=== PATIENT | male | born 1950 | race Caucasian/White ===

== ENCOUNTER → 2017-05-02 11:29 | Outpatient (CLI) | payer MEDICARE, OTHER, SELFPAY | PROVIDERS: Family Provider Family Medicine; PCP Family Medicine; Visit Provider Urology | DX: C61 Malignant neoplasm of prostate (principal) | CPT/HCPCS: 36415; 84153 ==

== ENCOUNTER → 2017-05-10 06:32 | Outpatient (CLI) | payer MEDICARE, OTHER, SELFPAY ==
--- NOTE | 2017-05-10 06:46 | CT_ITS ---
STUDY: CT ABDOMEN AND PELVIS WITH AND WITHOUT CONTRAST REASON FOR EXAM: Male, 66 years old. Prior partial right nephrectomy. Questionable left renal abnormality. History of prostate cancer. RADIATION DOSAGE (If Supplied By Facility): CTDIvol = ( 31.21 ) mGy, DLP = ( 4161.11 ) mGycm TECHNIQUE: Transaxial images were obtained from the dome of the diaphragm to the symphysis pubis without oral contrast. 100 ml of Isovue 300 contrast was administered. Sagittal and coronal images were reconstructed. Individualized dose optimization techniques were used for this CT. COMPARISON: Comparison is made with prior examination dated July 07, 2016. FINDINGS: Mild increased markings at the lung bases suggestive of bibasilar scarring. Calcified granuloma in the right lower lobe. The visualized portions of the heart are within normal limits. There are several tiny cysts scattered throughout the liver. These are unchanged. There are surgical clips in the gallbladder fossa consistent with a prior cholecystectomy. Normal spleen. A small splenule is once again seen along the inferior medial portion of the spleen. Normal pancreas. Normal bilateral adrenal glands. 1 cm cyst in the mid posterior aspect of the right kidney. A punctate calcification is seen in the mid lower pole calyx of the left kidney. Focal cortical deformity in the midportion of the left kidney suggestive of cortical scarring. There is evidence of a 1.9 cm hypodensity most likely presenting a cyst in the lower midportion of the left kidney. Normal visualized stomach. Normal small intestine. Normal colon. The appendix is visualized and appears normal. Normal abdominal aorta. Normal inferior vena cava. There is borderline retroperitoneal lymphadenopathy with enlarged nodes no greater than 10mm in the short axis diameter. Contracted urinary bladder. There is enlargement of the prostate gland. The prostate measures 5.2 cm x 5.2 cm. Central calcifications are seen. This causes indentation at the bladder base. There is a small umbilical hernia containing fat. Small bilateral inguinal hernias containing fat. Small bilateral inguinal lymph nodes. There are diffuse degenerative changes of the visualized lumbar spine. CT/CT Abd/Pelvis W/WO Contrast IMPRESSION: Stable small hepatic cysts. Stable bilateral renal cysts. Cortical scarring in the left kidney. Electronically Signed: Germán Coyne MD at 10:22 EDT Tel [phone], Service support ,
[2017-05-10 07:01] LABS: EGFR FINGERSTICK > 60.0000 mL/min (>60)
== END ==
PROVIDERS: Family Provider Family Medicine; PCP Family Medicine; Visit Provider Urology
DX: C64.2 Malignant neoplasm of left kidney, except renal pelvis (principal); K76.89 Other specified diseases of liver; N28.89 Other specified disorders of kidney and ureter; Z85.46 Personal history of malignant neoplasm of prostate
CPT/HCPCS: 74178; Q9967

== ENCOUNTER → 2017-05-16 09:00 | Outpatient (CLI) | payer MEDICARE, OTHER, SELFPAY ==
--- NOTE | 2017-05-16 09:07 | RAD_ITS ---
STUDY: X-RAY CHEST REASON FOR EXAM: Male, 66 years old. History of renal cancer. TECHNIQUE: Frontal and lateral views of the chest. COMPARISON: 12/31/2015. FINDINGS: The lungs are clear and expanded. There is no demonstrated pleural abnormality. Normal size heart. Normal mediastinum and nirav. Normal visualized pulmonary arteries. Normal visualized aortic arch and descending thoracic aorta. Normal visualized thoracic spine. Normal visualized ribs, clavicles, and shoulders. There is no demonstrated abnormality of the visualized soft tissue structures of the upper abdomen. RAD/Chest PA and Lateral IMPRESSION: Normal x-ray examination of the chest. Electronically Signed: Srinivasa Smith MD at 8:23 EDT , Service support ,
== END ==
PROVIDERS: Family Provider Family Medicine; PCP Family Medicine; Visit Provider Urology
DX: Z85.528 Personal history of other malignant neoplasm of kidney (principal)
CPT/HCPCS: 71046

== ENCOUNTER → 2017-08-14 16:57 | Outpatient (CLI) | payer MEDICARE, OTHER, SELFPAY ==
--- NOTE | 2017-08-14 | IMM_PTH ---
PATIENT: DAPHNE BARR LOC: [facility] U#:[id number] AGE/SX: 74/M ROOM: RE08/14/[address]: Dr. Binh Schulz MD : 1950 BED: DIS: SPEC #: [id number] RECD: 08/16/17 12:37 STATUS: REECE REQ #: [id number] ARMIDA: 08/14/17 00:[address]: Binh Schulz DEPT: IMMUNOHISTOCHEMISTRY RECD BY: Char Limon ENTERED: 08/16/17 12:38 SP TYPE: IMMUNO OTHR DR: Dr. Wilbur Larkin MD Tissues: A - PROSTATE RIGHT D - PROSTATE LEFT F - PROSTATE LEFT Procedures: 34BE12 (add) P40 (add) 34BE12 (initial) PHYSICIAN & INSTITUTION [place] [id number] SPECIMEN INFORMATION: Tissue Source: A ? Right prostate apex, D ? Left prostate apex, F ? Left prostate base Clinical Info: Elevated PSA Specimen Number: [id number] A, D & F CPT code: 17663, 99888 x5 METHODOLOGY: Deparaffinized sections of prefer/formalin-fixed tissue or PAP/DQ stained slides are incubated with monoclonal/polyclonal antibodies/oligonucleotide probes. Localization is made via biotin free immunoperoxidase method. Appropriate controls are performed and reacted as expected. Results on target cell population are indicated in the following table: RESULTS: ANTIBODY / CLONE RESULT Block A P40 (BC28) negative 34BE12 (34BE12) negative Block D P40 (BC28) negative 34BE12 (34BE12) negative Block F P40 (BC28) positive 34BE12 (34BE12) positive These tests were developed and their performance characteristics determined by [facility]. They may not have been cleared or approved by the U.S. Food and Drug Administration. The FDA has determined that such clearance or approval is not necessary. INTERPRETATION: A. Right prostate, apex, core biopsy: A minute focus of adenocarcinoma. D. Left prostate, apex, core biopsy: A minute focus of adenocarcinoma. F. Left prostate, base, core biopsy: Negative for carcinoma. SJ:missy 08/17/17
--- NOTE | 2017-08-14 08:00 | PROSBIL_PTH ---
PATIENT: DAPHNE BARR LOC: [facility] U#:[id number] AGE/SX: 74/M ROOM: RE08/14/[address]: Dr. Binh Schulz MD : 1950 BED: DIS: SPEC #: [id number] RECD: 08/14/17 16:54 STATUS: REECE BRIAN #: [id number] ARMIDA: 08/14/17 08:[address]: Binh Schulz DEPT: SURGICAL PATHOLOGY RECD BY: Miguel Meraz ENTERED: 08/15/17 07:34 SP TYPE: PROST BX AMANDO DR: Dr. Wilbur Larkin MD Tissues: A - PROSTATE RIGHT B - PROSTATE RIGHT C - PROSTATE RIGHT D - PROSTATE LEFT E - PROSTATE LEFT F - PROSTATE LEFT Procedures: PROSTATE BX HEADER OPERATION: Prostate biopsy PRE-OP DIAGNOSIS: Elevated PSA TISSUE SUBMITTED: A - Right apex, B - Right mid, C - Right base, D - Left apex, E - Left mid, F - Left base MICROSCOPIC DIAGNOSIS A. Right prostate, apex, core biopsy: A minute focus of prostatic adenocarcinoma: Edgard grade: 3+3=6 Number of cores involved: 1 out of 2 Proportion of tissue involved: <5% Perineural invasion: Not identified. Greatest tumor length: <0.1 cm A lymphoid aggregate, favor benign. See comment. B. Right prostate, mid, core biopsy: Prostatic tissue, negative for malignancy. C. Right prostate, base, core biopsy: Negative for malignancy. D. Left prostate, apex, core biopsy: A minute focus of prostatic adenocarcinoma: Edgard grade: 3+3=6 Number of cores involved: 1 out of 2 Proportion of tissue involved: <5% Perineural invasion: Not identified. Greatest tumor length: <0.1 cm Focal atrophy. See comment. E. Left prostate, mid, core biopsy: Prostatic tissue, negative for malignancy. F. Left prostate, base, core biopsy: Prostatic tissue, negative for malignancy. See comment. SJ:missy 08/16/17 COMMENT A, D & F. Immunohistochemistry ([id number]) supports the above diagnosis. 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 MICROSCOPIC DESCRIPTION Slides are reviewed. GROSS DESCRIPTION A - Received is one container designated prostate, right apex. The specimen consists of two elongated fragments of light hernandez-white soft tissue each measuring 1.5 cm in length and 0.1 cm in diameter. The specimen is totally submitted in one cassette. B - Received is one container designated prostate, right mid. The specimen consists of two elongated fragments of light hernandez-white soft tissue each measuring 1.5 cm in length and 0.1 cm in diameter. The specimen is totally submitted in one cassette. C - Received is one container designated prostate, right base. The specimen consists of two elongated fragments of light hernandez-white soft tissue measuring 1.2 and 1.4 cm in length and 0.1 cm in diameter. The specimen is totally submitted in one cassette. D - Received is one container designated prostate, left apex. The specimen consists of two elongated fragments of light hernandez-white soft tissue measuring 1.5 and 2 cm in length and 0.1 cm in diameter. The specimen is totally submitted in one cassette. E - Received is one container designated prostate, left mid. The specimen consists of three elongated fragments of light hernandez-white soft tissue measuring 0.8 to 1.5 cm in length and 0.1 cm in diameter. A minute fragment of black stone is also noted in the container measuring <0.1 cm in greatest dimension. The specimen is totally submitted in one cassette. F - Received is one container designated prostate, left base. The specimen consists of two elongated fragments of light hernandez-white soft tissue each measuring 1.5 cm in length and 0.1 cm in diameter. The specimen is totally submitted in one cassette. / NORA:missy 08/15/17 TC:0 CPT: G0146 ADDENDUM ADDENDUM ADDENDUM ADDENDUM ADDENDUM ADDENDUM ADDENDUM ADDENDUM 03/23/2018 11:01 ADDENDUM 03/23/2018 11:01 ADDENDUM 03/23/2018 11:01 ADDENDUM 03/23/2018 11:01 ADDENDUM 03/23/2018 11:01 An order for Oncotype testing was received from Dr. Schulz. This necessitated case review, block and slide selection by pathologist at [facility]. Genomic Prostate Score = 37 Results of the complete Oncotype testing ([employer] report) are viewable in EMR under: Reports - Pathology - Lab Pathology Report, Scanned.
== END ==
PROVIDERS: Family Provider Family Medicine; PCP Family Medicine; Visit Provider Urology
DX: R97.20 Elevated prostate specific antigen [PSA] (principal)
CPT/HCPCS: 88305; 88341; 88342; G0416

== ENCOUNTER → 2018-02-26 12:29 | Outpatient (CLI) | payer MEDICARE, OTHER, SELFPAY | PROVIDERS: Family Provider Family Medicine; PCP Family Medicine; Referring Provider Urology; Visit Provider Urology | DX: C61 Malignant neoplasm of prostate (principal) | CPT/HCPCS: 36415; 84153 ==

== ENCOUNTER → 2018-03-13 14:16 | Outpatient (CLI) | payer MEDICARE, OTHER, SELFPAY ==
--- NOTE | 2018-03-13 14:26 | CT_ITS ---
HISTORY: RIGHT RENAL MASS. PREVIOUS PARTIAL NEPHRECTOMY, GB TECHNIQUE: Helically acquired images were obtained of the abdomen and pelvis following IV contrast. A radiation dose optimization technique was used for this scan. IV Contrast dosage and agent: 100 cc Isovue-300 administered intravenously. Oral contrast: None. COMPARISON: 05/10/17 and 12/31/15 CT abdomen and pelvis. FINDINGS: # of images incl. paperwork: [phone] LOWER CHEST: No acute findings. Calcified subcarinal and right hilar lymph nodes partially visible. LIVER: Unchanged small hepatic hypodensities most likely incidental cysts. No concerning interval change of the liver. GALLBLADDER AND BILIARY TREE: Status post cholecystectomy. No intra- or extrahepatic biliary ductal dilation. KIDNEYS AND URETERS: Indeterminate density hypodensity in the upper pole of the right kidney, 1.8 cm in greatest dimension, similar to previous. Other smaller bilateral renal cysts not significantly changed. Scarring upper pole cortex left kidney with no concerning interval change. ADRENAL GLANDS: Non-enlarged. SPLEEN: Normal size without focal cystic or solid mass. PANCREAS: No focal cystic or solid mass. BOWEL: No stomach or bowel distension. No focal inflammatory change observed. Normal appendix. LYMPH NODES: No enlarged mesenteric or retroperitoneal lymph nodes. PERITONEUM: No ascites or free air. No other fluid collection. VESSELS: Aorta is non-dilated. URINARY BLADDER: Incompletely distended, otherwise grossly unremarkable. REPRODUCTIVE ORGANS: Mild prostate enlargement similar to prior. ABDOMINAL WALL: Bilateral inguinal hernias contain fat. BONES: No lytic or blastic abnormality observed. CT/Abdomen/Pelvis WITH Contrast IMPRESSION: No concerning interval change. 1.8 cm indeterminant hypodense lesion upper pole cortex right kidney; complex cyst versus solid mass. Scarring upper pole left kidney. Prostate enlargement. Individualized dose optimization techniques were used for this CT. at 0343 Reported and signed by: Ariel Noble MD Electronically Signed: Ariel Noble, at 3:42 EST Tel , Service support ,
[2018-03-13 14:40] LABS: CREATININE FINGERSTICK 0.7 mg/dL (0.70-1.30); EGFR FINGERSTICK > 60.0000 mL/min (>60)
== END ==
PROVIDERS: Family Provider Family Medicine; PCP Family Medicine; Referring Provider Urology; Visit Provider Urology
DX: N28.89 Other specified disorders of kidney and ureter (principal)
CPT/HCPCS: 74177; Q9967

== ENCOUNTER → 2018-10-04 07:50 | Outpatient (CLI) | payer MEDICARE, OTHER, SELFPAY ==
[2018-10-04 09:32] LABS: PSA,Total- Diagnostic 6.64 ng/mL (0.0-4.0)
== END ==
PROVIDERS: Family Provider Family Medicine; PCP Family Medicine; Referring Provider Urology; Visit Provider Urology
DX: C61 Malignant neoplasm of prostate (principal)
CPT/HCPCS: 36415; 84153

== ENCOUNTER → 2019-04-04 07:37 | Outpatient (CLI) | payer MEDICARE, OTHER, SELFPAY ==
--- NOTE | 2019-04-04 07:39 | CT_ITS ---
STUDY: CT ABDOMEN AND PELVIS WITH CONTRAST REASON FOR EXAM: Male, 68 years old. Left kidney cancer follow up, partial left nephrectomy. Prior cholecystectomy, diabetes, hypertension. RADIATION DOSAGE (If Supplied By Facility): CTDIvol = ( 23.36 ) mGy, DLP = ( 1212.78 ) mGycm TECHNIQUE: Transaxial images were obtained from the dome of the diaphragm to the symphysis pubis without oral contrast. IV 100mL Isovue-300 was administered. Sagittal and coronal images were reconstructed. Individualized dose optimization techniques were used for this CT. COMPARISON: Comparison is made with prior examination dated March 13, 2018. FINDINGS: The visualized lung bases are unremarkable. The visualized portions of the heart are within normal limits. Stable 1.5 cm cyst in the right lobe of the liver. Fatty infiltration of the liver. There are surgical clips in the gallbladder fossa consistent with a prior cholecystectomy. Normal spleen. Normal pancreas. Normal bilateral adrenal glands. Since prior study, the hypodensity in the upper pole of the right kidney has decreased in size measuring 2.6 cm. Normal left kidney. Normal visualized stomach. Normal small intestine. Normal colon. The appendix is visualized and appears normal. Normal abdominal aorta. Normal inferior vena cava. There is borderline retroperitoneal lymphadenopathy with enlarged nodes no greater than 10mm in the short axis diameter. Normal urinary bladder. There is enlargement of the prostate gland. It measures 5.3 cm x 5.7 cm. Central calcifications are seen. Small bilateral inguinal hernias containing fat. There are mild degenerative changes of the visualized lumbar spine. CT/Abdomen/Pelvis WITH Contrast IMPRESSION: Increase in size of the upper density in the upper pole of the right kidney presently measuring 2.6 sinus. Stable hepatic cysts. Electronically Signed: Germán Coyne, at 14:20 EST , Service support ,
[2019-04-04 07:55] LABS: CREATININE FINGERSTICK 0.9 mg/dL (0.70-1.30)
[2019-04-04 10:04] LABS: PSA,Total- Diagnostic 7.35 ng/mL (0.0-4.0)
== END ==
PROVIDERS: PCP Family Medicine; Referring Provider Urology; Visit Provider Urology
DX: C64.2 Malignant neoplasm of left kidney, except renal pelvis (principal); C61 Malignant neoplasm of prostate
CPT/HCPCS: 36415; 74177; 84153; Q9967

== ENCOUNTER → 2019-10-10 09:52 | Outpatient (CLI) | payer MEDICARE, OTHER, SELFPAY ==
[2019-10-10 11:34] LABS: PSA,Total- Diagnostic 5.84 ng/mL (0.0-4.0)
== END ==
PROVIDERS: PCP Family Medicine; Visit Provider Urology
DX: N40.1 Benign prostatic hyperplasia with lower urinary tract symptoms (principal)
CPT/HCPCS: 36415; 84153

== ENCOUNTER 2020-01-06 12:16 | Emergency (ER) | payer MEDICARE, OTHER, SELFPAY ==
[2020-01-06 12:17] VITALS: BP 218/105; PULSE 58; RESP 20; TEMP 36.5; BMI 41.3
--- NOTE | 2020-01-06 12:54 | RAD_ITS ---
STUDY: X-RAY - LEFT HAND REASON FOR EXAM: Male, 69 years old. DOG BITE ACROSS POSTERIOR HAND TECHNIQUE: 3 view(s) of the hand. COMPARISON: None. FINDINGS: Normal radiocarpal articulation. Normal distal radioulnar joint. Normal visualized carpal bones. Normal carpal articulations Normal carpometacarpal articulation of the thumb. Normal second through fifth carpometacarpal joints. Normal metacarpi. 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 Normal interphalangeal joint of the thumb. Normal proximal and distal phalanges of the thumb. Normal metacarpophalangeal joints of the second through fifth fingers. Normal proximal and distal interphalangeal joints of the second through fifth fingers. Normal phalanges of the second through fifth fingers. Soft tissue swelling. No radiopaque foreign body is seen. RAD/Hand Min 3 Views IMPRESSION: Soft tissue swelling. Electronically Signed: Germán Coyne, at 13:25 EST , Service support ,
[2020-01-06] MEDS: Diphth,Pertuss(Acell),Tet Vac 0.5 ML Vial IM (13:20)
[2020-01-06] MEDS: Acetaminophen 325 MG Tablet 650 MG PO (13:20)
[2020-01-06] MEDS: Lidocaine/Epi/Tetracaine 50 ML 1 APPLIC TOPICAL (13:21)
--- NOTE | 2020-01-06 17:02 | ED.DCSUM_ITS ---
History of Present Illness Chief Complaint: Bite Informant: Patient Occurred: Today - ANGEL Mechanism/Context: - - dog bite Onset: Today Context: Sudden Onset Timing: Continuous Quality of Pain: - - sore Location: L hand Current Severity: Moderate Maximum Severity: Moderate Worsened by: movement, palpation Relieved by: remaining still Associated Symptoms: Negative for: Parasthesia, Weakness, Loss of Funtion Narrative: 69-year-old male [id number] presenting after his son's dog bit him in the hand. States the dog was under the impression the patient was playing. They were in opposite sides of the fence, he put his hand over the fence and the dog jumped up and bit him in the hand, as the patient tore his hand away, he sustained significant lacerations. Last tetanus unknown. No amoxicillin allergy. No numbness or other injury. The dog has had its shots up-to-date and is not ill, and can be monitored. Tetanus Immunization: >10 years - Past Medical History (1) Type 2 diabetes mellitus Status: Chronic (2) CAD (coronary artery disease) Status: Chronic (3) Hypertension Status: Chronic (4) Sleep apnea Status: Chronic (5) Ulcerative colitis Status: Chronic Past Medical History - Allergies and Home Meds Allergies/Adverse Reactions: Allergies hydromorphone HCl [From Dilaudid] Adverse Reaction (Verified 01/06/20 12:54) Shortness of breath Primary Care Physician: Wilbur Larkin MD [Primary Care Provider] - Surgical History: no surgical history Lives: Spouse/ Significant Other Smoking Status: Former smoker - Family History Maternal Family History: Reports: No pertinent history Paternal Family History: Reports: No pertinent history Review of Systems General: Denies: Chills, Fever, Sweats Musculoskeletal: Reports: Extremity Pain Skin: Reports: Wounds. Denies: Abscess Neurological: Denies: Headache, Weakness, Numbness Physical Exam General: Well nourished, Well developed, - - NAD Head: Normocephalic, Atraumatic Extremeties: Multiple wounds to the left hand. All tendon function intact, full range of motion of all fingers. No tendons or bone exposed in the wounds, there are a couple of veins visible however. No foreign material. Wounds are clean. Skin: Normal color, No rash, Trauma - 3 repairable wounds to the left hand that are through or into subcutaneous fat. #1 is 8 cm V-shaped flap on the dorsum of the hand. #2 is 4 cm at the palmar aspect between the index and middle fingers extending into the webspace between them, fairly linear. #3 is 2.5 cm across dorsum long f. Neurological: Alert, Oriented x3, Cranial nerves II-XII grossly intact, Normal Strength, Normal Sensation Psychological: Normal affect, Normal Mood Diagnostic/Tx/Re-eval Clinical Impression(s) from Imaging Studies Hand X-Ray 01/06/20 12:54 IMPRESSION: Soft tissue swelling. Electronically Signed: Germán Molinanieves, at 13:25 EST , Service support , - Medical Decision Making X-rays were unremarkable for any foreign body or bony injury. His lacerations were repaired, his tetanus was updated, he was placed on Augmentin with the first dose given here, follow-up 10-14 days for wound reevaluation and suture removal. He was counseled on signs and symptoms of infection and reasons to return. He is comfortable with that plan. Procedures - Lacerations L hand dorsum Length: 8 cm Depth: Sub Q Shape: V-shaped Prep: Sterile Conditions, Chlorhexadine Laceration repair: Irrigated, Lidocaine with epi - 8cc, Local, Skin sutures Irrigated (ml): 50 Number of Sutures/[place]: 12 Suture Information: Ethilon, Simple, 4-0 L hand volar between f's 2-3 Length: 4 cm Depth: Sub Q Shape: Linear Prep: Sterile Conditions, Chlorhexadine Laceration repair: Irrigated, Lidocaine with epi - 4cc, Local Irrigated (ml): 50 Number of Sutures/[place]: 5 Suture Information: Ethilon, Simple, 4-0 L hand dorsum middle f, middle phalanx Length: 2.5 cm Depth: Sub Q Shape: j-shaped Prep: Sterile Conditions, Chlorhexadine Laceration repair: Irrigated, Lidocaine with epi - 2cc, Local, Skin sutures Irrigated (ml): 50 Number of Sutures/[place]: 5 Suture Information: Ethilon, Simple, 4-0 ED Disposition - Plan for ED Patient: Disposition: Home or Assisted Living Diagnosis: Laceration of left hand, Dog bite of left hand, Tetanus-diphtheria (Td) vaccination Instructions: ED BITE Dog, ED Laceration Hand Prescriptions: Amox/Clavulanate Tablet [Augmentin Tablet] 875 mg PO Q12H #20 tab Transmission Status: Pending to [facility] Referrals: Wilbur Larkin MD [Primary Care Provider] - 10-14 Days suture removal
[2020-01-06 17:09] VITALS: BP 186/111; PULSE 58; RESP 16
[2020-01-06] MEDS: Amox/Clavulanate 875 MG Tablet PO (17:11)
--- NOTE | 2020-01-06 17:13 | ED.RN ---
DISCHARGE INSTRUCTIONS GIVEN TO AND REVIEWED WITH PATIENT, PATIENT DENIES QUESTIONS OR CONCERNS AND VOICES UNDERSTANDING OF DISCHARGE INSTRUCTIONS. PT TO PRIVATE VEHICLE VIA WHEELCHAIR.
== END 2020-01-06 17:14 | disposition home or self-care (01) ==
PROVIDERS: Emergency Provider Emergency Medicine; PCP Family Medicine
DX: S61.412A Laceration without foreign body of left hand, initial encounter (principal); S61.213A Laceration without foreign body of left middle finger without damage to nail, initial encounter; W54.0XXA Bitten by dog, initial encounter; Y93.89 Activity, other specified; Y92.9 Unspecified place or not applicable; Y99.8 Other external cause status; I25.10 Atherosclerotic heart disease of native coronary artery without angina pectoris; I10 Essential (primary) hypertension; E11.9 Type 2 diabetes mellitus without complications; Z88.5 Allergy status to narcotic agent; Z79.899 Other long term (current) drug therapy; Z87.891 Personal history of nicotine dependence
CPT/HCPCS: 12005; 73130; 90471; 90715; 99284

== ENCOUNTER → 2020-04-16 10:28 | Outpatient (CLI) | payer MEDICARE, OTHER, SELFPAY ==
[2020-04-16 11:59] LABS: PSA,Total- Diagnostic 5.74 ng/mL (0.0-4.0)
== END ==
PROVIDERS: PCP Family Medicine; Referring Provider Urology; Visit Provider Urology
DX: C61 Malignant neoplasm of prostate (principal)
CPT/HCPCS: 36415; 84153

== ENCOUNTER → 2020-05-06 13:41 | Outpatient (CLI) | payer MEDICARE, OTHER, SELFPAY ==
[2020-05-06 15:30] LABS: Hematocrit 46.7 % (40-54); Hemoglobin 15.6 g/dL (13.0-16.5); Mean Corp Hgb Conc 33.4 g/dL (32-36); Mean Corpuscular Hgb 28.6 pg (27.0-32.0); Mean Corpuscular Volume 85.7 fL (80-94); Mean Platelet Vol. 11.4 fl (6.2-12.0); Platelet Count 212 K/mm3 (150-450); RBC Distribution Width CV 12.9 % (11.6-14.6); RBC Distribution Width SD 40.2 fl (35.1-43.9); Red Blood Count 5.45 M/mm3 (4.6-6.2); White Blood Count 10.3 K/mm3 (4.4-11.0)
[2020-05-06 15:39] LABS: CRP 6.13 mg/L (0.0-3.0)
[2020-05-06 16:19] LABS: Erythrocyte Sedimentation Rate 12 mm/hr (0-20)
== END ==
PROVIDERS: PCP Family Medicine; Referring Provider Internal Medicine Gastroenterology; Visit Provider Internal Medicine Gastroenterology
DX: K51.90 Ulcerative colitis, unspecified, without complications (principal)
CPT/HCPCS: 36415; 85027; 85652; 86140

== ENCOUNTER 2020-06-02 10:01 | Emergency (ER) | payer MEDICARE, OTHER, SELFPAY ==
[2020-06-02 10:02] VITALS: BP 155/83; PULSE 67; RESP 18; TEMP 36.7; O2SAT 93; BMI 39.7
--- NOTE | 2020-06-02 10:34 | EKG12_ITS ---
Test Reason : A FIB Blood Pressure : / mmHG Vent. Rate : 074 BPM Atrial Rate : 107 BPM P-R Int : 000 ms QRS Dur : 096 ms QT Int : 428 ms P-R-T Axes : 000 -05 059 degrees QTc Int : 475 ms Atrial fibrillation Abnormal ECG Confirmed by PERFECTO ORTIZ, MATTHEW ([id number]), development editor JUAN DIEGO MARQUIS ([id number]) on 06/05/2020 2:52:58 PM Referred By: SUKHWINDER Confirmed By:PATTI GROVE MD
--- NOTE | 2020-06-02 10:35 | ED.VISSUMM ---
- ER Visit Summary Date of Service: 06/02/20 Chief Complaint: Atrial fibrillation History of Present Illness: The patient is a 69 M who presents with atrial fibrillation that was noticed today. Patient states he went for his colonoscopy today and they noticed he was in atrial fibrillation. Patient has no prior history of atrial fibrillation. Patient states he has been feeling fatigued. Patient does not feel his heart beating irregularly. Patient does not know if anything makes it better or worse. Patient denies any chest pain. Patient denies any shortness of breath or cough. Physical Examination: Vital signs are stable. Patient is afebrile. Patient is in no acute distress. Oral mucosa is pink and moist. Neck is supple. Trachea is midline. There is no JVD. Heart was irregularly irregular. Lungs are clear and equal bilaterally. Abdomen is soft. Bowel sounds are normal. There is no tenderness. Cranial nerves II through XII are intact. There are no focal motor or sensory deficits noted. Extremities are intact. There is 1+ edema of the lower extremities bilaterally. There is no calf tenderness. Test Results: EKG was obtained. On my interpretation, it showed atrial fibrillation with a rate of 74. There are no acute ST or T wave changes. QRS and QTc intervals were within normal limits. [place] was normal. Portable 1 view chest x-ray was obtained. On my interpretation, lung antoine are clear. There is normal cardiac silhouette. Bony thorax is normal. There is no acute process noted. Radiologist also interpreted the x-ray and agrees. CBC and basic metabolic profile were obtained. Glucose was 207, and potassium was 3.3. PT with INR and PTT were within normal limits. Urinalysis does not show any evidence of urinary tract infection. Emergency Department Course and Treatment: Patient is resting comfortably on reevaluation. Patient was advised of his findings. Case was discussed with the hospitalist. He was in to evaluate the patient and discussed the case with Dr. Clemens. He recommended outpatient follow-up and starting the patient on Eliquis. Patient was given a prescription for Eliquis. Patient was instructed to follow-up with Dr. Clemens this week. Patient and family understood and were agreeable with the plan. All questions were answered. Disposition: Discharge home Impression: 1. New onset atrial fibrillation This note was generated with [employer] software. It may contain incorrect words, spelling, and punctuation that were not noted in review of the chart prior to signing ED Disposition - Plan for ED Patient: Disposition: Home or Assisted Living Diagnosis: New onset atrial fibrillation Instructions: ED AFIB Prescriptions: Apixaban [Eliquis] 5 mg PO BID #60 tablet Transmission Status: Pending to [facility] Referrals: Perry Clemens MD [STAFF PHYSICIAN] - 3-5 Days Wilbur Larkin MD [Primary Care Provider] - 5-7 Days
--- NOTE | 2020-06-02 10:51 | RAD_ITS ---
STUDY: X-RAY CHEST REASON FOR EXAM: Male, 69 years old. Atrial fibrillation, chest pain. TECHNIQUE: Single AP portable view of the chest. COMPARISON: 05/16/2017 FINDINGS: EKG leads overlie the chest The lungs are clear and expanded. There is no demonstrated pleural abnormality. Normal size heart. Normal mediastinum and nirav. Normal visualized pulmonary arteries. Normal visualized aortic arch and descending thoracic aorta. There are diffuse degenerative changes of the visualized thoracic spine. There is degenerative osteoarthritis of the bilateral shoulders. There is no demonstrated abnormality of the visualized soft tissue structures of the upper abdomen. RAD/Chest 1 View (Portable) IMPRESSION: No acute pulmonary process Electronically Signed: Geronimo Hernandez MD at 11:08 EDT , Service support ,
[2020-06-02 10:58] LABS: Absolute Neutrophil Count 6.6 X10^3/uL (2.0-7.7); Basophil# 0.03 X10^3/uL; Basophil% 0.3 % (0-1); Eosinophil# 0.17 X10^3/uL; Eosinophils% 1.9 % (0-5); Hemoglobin 15.9 g/dL (13.0-16.5); Lymphocyte % 18.6 % (19-41); Mean Corp Hgb Conc 33.1 g/dL (32-36); Mean Corpuscular Hgb 29.2 pg (27.0-32.0); Mean Corpuscular Volume 88.2 fL (80-94); Mean Platelet Vol. 11.3 fl (6.2-12.0); Monocyte# 0.64 X10^3/uL; NRBC Flagged by Analyzer 0 % (0-5); Neutrophil # 6.58 X10^3/uL (2.7-7.7); Neutrophil % 71.9 % (47-70); Platelet Count 205 K/mm3 (150-450); RBC Distribution Width CV 12.7 % (11.6-14.6); RBC Distribution Width SD 41.3 fl (35.1-43.9); Red Blood Count 5.44 M/mm3 (4.6-6.2); White Blood Count 9.2 K/mm3 (4.4-11.0)
[2020-06-02 11:06] LABS: International Normalized Ratio 1.1; Prothrombin Time (Protime)PT. 13.2 SECONDS (11.7-14.9)
[2020-06-02 11:07] LABS: Partial Thromboplast Time 32.7 Seconds (24.1-36.2)
[2020-06-02 11:23] LABS: Color, Urine Straw (Yellow); Glucose, Dipstick Normal (Normal); Ketone-Dipstick 5 mg/dl (Negative); Leukocyte Esterase-Dipstick Negative /ul (Negative); Mucous, Urine 0 SEEN /hpf (<or=2+); Nitrite-Dipstick Negative (Negative); Occult Blood-Urine Negative /ul (Negative); Protein-Dipstick 15 mg/dl (Negative); Red Blood Cells-Urine 0 SEEN /hpf (0-5); Urine Bilirubin Dipstick Negative (Negative); Urine Clarity Clear (Clear); Urine Urobilinogen Normal (Normal)
[2020-06-02 11:31] LABS: Bacteria RARE /hpf (None Seen); Squamous Epithelial Cells - UA 0-5 SEEN /hpf (0-5); White Blood Cells 0-5 SEEN /hpf (0-5)
[2020-06-02 11:51] LABS: ALB/GLOB Ratio 0.9 RATIO (0.9-2.4); AST(SGOT) 19 U/L (15-37); Alanine Aminotransfer ALT/SGPT 26 U/L (16-61); Albumin, Serum 3.5 g/dL (3.2-5.0); Alkaline Phosphatase 100 U/L (45-117); Anion Gap 3 (5-15); BUN 13 mg/dL (7-18); BUN/Creat Ratio 12.6 RATIO (10-20); Calcium,Total 8.7 mg/dL (8.5-10.1); Chloride 102 mmol/L (98-107); Creatinine, Serum 1.03 mg/dL (0.70-1.30); EST Glomerular Filtration Rate 76 mL/min (>60); Est Glom Filt Rate - Afr Amer 92 mL/min (>60); Estimated Creatinine Clearance 60.22 ml/min; Globulin 3.7 g/dL (2.2-4.2); Glucose 207 mg/dL (74-106); Potassium 3.3 mmol/L (3.5-5.1); Protein, Total 7.2 g/dL (6.4-8.2); Sodium Level 136 mmol/L (136-145)
[2020-06-02 12:01] VITALS: BP 115/77; PULSE 65; RESP 17; O2SAT 94
[2020-06-02 12:40] VITALS: BP 115/78; PULSE 65; RESP 18; O2SAT 98
== END 2020-06-02 12:40 | disposition home or self-care (01) ==
PROVIDERS: Emergency Provider Emergency Medicine; PCP Family Medicine
DX: I48.91 Unspecified atrial fibrillation (principal); E11.9 Type 2 diabetes mellitus without complications; E66.9 Obesity, unspecified; Z68.39 Body mass index [BMI] 39.0-39.9, adult; Z79.84 Long term (current) use of oral hypoglycemic drugs; Z79.899 Other long term (current) drug therapy
CPT/HCPCS: 71045; 80053; 81001; 84484; 85025; 85610; 85730; 93005; 99285; A4216

== ENCOUNTER → 2020-06-05 16:07 | Outpatient (CLI) | payer MEDICARE, OTHER, SELFPAY ==
[2020-06-05 14:58] VITALS: BMI 40.1
[2020-06-05 17:22] LABS: Anion Gap 2 (5-15); BUN 21 mg/dL (7-18); BUN/Creat Ratio 18.1 RATIO (10-20); Calcium,Total 9.2 mg/dL (8.5-10.1); Chloride 103 mmol/L (98-107); Creatinine, Serum 1.16 mg/dL (0.70-1.30); EST Glomerular Filtration Rate 66 mL/min (>60); Est Glom Filt Rate - Afr Amer 80 mL/min (>60); Glucose 197 mg/dL (74-106); Potassium 3.8 mmol/L (3.5-5.1); Sodium Level 136 mmol/L (136-145); Thyroid Stim Hormone (TSH) 1.36 uIU/mL (0.358-3.74)
== END ==
PROVIDERS: PCP Family Medicine; Referring Provider Internal Medicine Cardiovascular Disease; Visit Provider Internal Medicine Cardiovascular Disease
DX: I48.91 Unspecified atrial fibrillation (principal); I10 Essential (primary) hypertension; E87.6 Hypokalemia; R53.83 Other fatigue; I48.19 Other persistent atrial fibrillation
CPT/HCPCS: 36415; 80048; 83735; 84443

== ENCOUNTER → 2020-06-19 06:32 | Outpatient (CLI) | payer MEDICARE, OTHER, SELFPAY ==
[2020-06-05 14:58] VITALS: BMI 40.1
--- NOTE | 2020-06-19 06:35 | ECHOCS_ITS ---
Reason For Study: AFIB Procedure This was a 2D Doppler, Color Flow transthoracic echocardiogram. The study was technically difficult. Contrast injection was performed. Exam performed in department. Left Ventricle Normal LV size. Mild concentric left ventricular hypertrophy. Left ventricular systolic function is normal. The estimated ejection fraction is 60 %. Unable to assess diastolic dysfunction. No regional wall motion abnormalities noted. Right Ventricle Normal RV size. Normal systolic function. Atria The left atrium is mildly enlarged. The right atrium is mildly enlarged. No doppler evidence for ASD. Mitral Valve There is no mitral annular calcification. Normal mitral valve. Trivial mitral valve insufficiency. Tricuspid Valve Normal tricuspid valve. Trivial tricuspid valve insufficiency. Right ventricular systolic pressure estimated to be 42 mmHg. Aortic Valve Trisinus/trileaflet aortic valve. Mild focal aortic valve calcification. Pulmonic Valve The pulmonic valve is not well visualized. Great Vessels Normal sized aortic root. Pericardium/Pleural No pericardial effusion. Medication Diluted definity 4.0ml given slow IV push to enhance endocardial definition. MMode/2D Measurements & Calculations LVIDd: 5.2 cm IVSd: 1.3 cm Ao root diam: 3.9 cm LVIDs: 3.6 cm LVPWd: 1.3 cm FS: 31.2 % LAV(MOD-bp): 81.1 ml EDV(MOD-sp4): 123.9 ml EDV(MOD-sp2): 135.8 ml LAV(MOD-bp) Indexed: 37.0 ml/m2 ESV(MOD-sp4): 38.3 ml ESV(MOD-sp2): 44.9 ml LAV(MOD-sp2): 77.8 ml EF(MOD-sp4): 69.1 % EF(MOD-sp2): 67.0 % LAV(MOD-sp4): 78.8 ml SV(MOD-sp4): 85.6 ml SV(MOD-sp2): 90.9 ml LA A4 area: 24.9 cm2 LA dimension(2D): 5.0 cm RA A4 area: 23.1 cm2 Time Measurements MV dec time: 0.10 sec Doppler Measurements & Calculations MV E max ady: 109.3 cm/sec Ao V2 max: 102.7 cm/sec LV V1 max: 84.8 cm/sec Ao max P.2 mmHg LV V1 max P.9 mmHg PA V2 max: 80.9 cm/sec TR max ady: 310.4 cm/sec TR max P.5 mmHg ECHO/Echo Complete W/ Contrast Interpretation Summary The study was technically difficult. Contrast injection was performed. Left ventricular systolic function is normal. The estimated ejection fraction is 60 %. Mild concentric left ventricular hypertrophy. The left atrium is mildly enlarged. The right atrium is mildly enlarged. Trivial mitral valve insufficiency. Trivial tricuspid valve insufficiency. Mild focal aortic valve calcification. Right ventricular systolic pressure estimated to be 42 mmHg. Unable to assess diastolic dysfunction. Ordering Physician: Perry Clemens Referring Physician: SHAYY TRAN Performed By: Carla Andersen, RDCS, RVT
--- NOTE | 2020-06-19 07:51 | STRESSREP_ITS ---
Stress Test Report Date: Procedure: Pharmacologic stress nuclear imaging study Indications: Atrial fibrillation Consent: Per the patient Procedure: The patient underwent pharmacologic (Regadenoson 0.4mg ) evaluation with a peak heart rate of 105 beats per minute (70%predicted maximal heart rate) and a peak blood pressure of 152/98 mmHg. The baseline ECG demonstrated atrial fibrillation. The peak pharmacologic ECG demonstrated no obvious ECG changes. There was an isolated PVC during infusion. There was no complaint of chest discomfort during pharmacologic infusion or recovery. The examination was discontinued secondary to completion of protocol. Impression: 1. Pharmacologic (Regadenoson) evaluation 2. Peak pharmacologic ECG with continued atrial fibrillation with no obvious ECG changes. 3. There was an isolated PVC during infusion. 4. Nuclear images pending Myocardial perfusion imaging study: Technique: The patient was injected with 14.2 millicuries of technetium 99m Cardiolite and subsequently rest SPECT Cardiolite nuclear imaging was obtained in the horizontal long, vertical long, and short axis views. The patient underwent pharmacologic (Regadenoson) evaluation with a peak heart rate of 105 beats per minute (70% percent predicted maximal heart rate) and a peak blood pressure of 152/98 mmHg. The patient was injected with 44.7 millicuries of technetium 99m Cardiolite and subsequently stress SPECT Cardiolite nuclear imaging was obtained in the horizontal long, vertical long, and short axis views. A gated Cardiolite study at peak stress was obtained. Interpretation: Rest and stress SPECT Cardiolite nuclear imaging status post realignment, normalization, and attenuation correction demonstrate relative uniform tracer uptake and myocardial perfusion appearing within normal limits. There is end systolic thickening and brightening. The gated Cardiolite study demonstrates myocardial thickening and inward wall motion. The reported LVEF is 57%. Impression: 1. Rest and stress SPECT Cardiolite nuclear imaging demonstrate relative uniform tracer uptake and myocardial perfusion appearing within normal limits. 2. The gated Cardiolite study reports an LVEF of 57%. This note was generated with [employer]ation software. It may contain incorrect words, spelling, and punctuation that were not noted in checking the note before signing.
== END ==
PROVIDERS: PCP Family Medicine; Referring Provider Internal Medicine Cardiovascular Disease; Visit Provider Internal Medicine Cardiovascular Disease
DX: R07.9 Chest pain, unspecified (principal); I48.91 Unspecified atrial fibrillation; I48.92 Unspecified atrial flutter; I10 Essential (primary) hypertension; E87.6 Hypokalemia; R53.83 Other fatigue
CPT/HCPCS: 78452; 93017; 93306; A9500; Q9957; A4216; C8929; J2785

== ENCOUNTER → 2020-06-22 20:21 | Outpatient (CLI) | payer MEDICARE, OTHER, SELFPAY ==
[2020-06-05 14:58] VITALS: BMI 40.1
== END ==
PROVIDERS: PCP Family Medicine; Visit Provider Internal Medicine Cardiovascular Disease
DX: G47.30 Sleep apnea, unspecified (principal)
CPT/HCPCS: 95810

== ENCOUNTER 2020-07-14 10:21 | Day surgery (SDC) | payer MEDICARE, OTHER, SELFPAY ==
[2020-06-05 14:58] VITALS: BMI 40.1
[2020-06-23 09:06] VITALS: BMI 40.1
[2020-06-23 10:05] LABS: International Normalized Ratio 1.1; Prothrombin Time (Protime)PT. 13.2 SECONDS (11.7-14.9)
[2020-06-23 10:19] LABS: Anion Gap 5 (5-15); BUN 21 mg/dL (7-18); BUN/Creat Ratio 20.4 RATIO (10-20); Calcium,Total 8.8 mg/dL (8.5-10.1); Chloride 104 mmol/L (98-107); Creatinine, Serum 1.03 mg/dL (0.70-1.30); EST Glomerular Filtration Rate 76 mL/min (>60); Est Glom Filt Rate - Afr Amer 92 mL/min (>60); Glucose 230 mg/dL (74-106); Potassium 3.8 mmol/L (3.5-5.1); Sodium Level 138 mmol/L (136-145)
[2020-07-13 08:28] VITALS: BMI 40.0
--- NOTE | 2020-07-13 12:56 | HP.PCM_ITS ---
Documented by User: Kye Alba NP, CONSIGNEE-C 07/13/20 16:39 History and Physical Date of Admission: 07/14/20 This is a 69-year-old white male who presents for outpatient cardiovascular consultation for concerns of underlying atrial fibrillation superimposed upon a history of hypertension with concerns of hypokalemia and fatigue. He was recently undergoing evaluation for colonoscopy. He states that he was prepared for his colonoscopy and status post review of his vital signs his colonoscopy was canceled and he was referred to the emergency department because of a finding of atrial fibrillation. He was evaluated in the emergency department and found to have evidence of hypokalemia with a potassium of 3.3. He does not believe he was supplemented with potassium. He underwent additional laboratory studies which include a troponin I level which was negative. An ECG demonstrated his atrial fibrillation. He was released home on medical therapy with anticoagulant therapy with apixaban. He states he has had no further cardiovascular evaluation since that time. He denies ongoing chest discomfort or worsening shortness of breath or dyspnea. There is been no report of orthopnea or PND or peripheral pitting edema. He denies near syncope or syncope. He has not sensed his underlying atrial dysrhy thmia. His states that he does snore. He states that he is very tired during the day. He had a previous exercise tolerance test performed at [facility] on 10-20-2015. At that time he exercised on a Terrnace protocol for 6 minutes achieving 58% predicted maximal heart rate. His report stated that he had a nondiagnostic ECG due to failure to achieve target heart rate. He had a low average exercise tolerance. He had marked resting hypertension. He was also reported as having an abnormal heart rate recovery. He had no other cardiovascular testing. He had an ECG in the office. He was noted to be in atrial fibrillation. He had poor R wave progression. He also states he has a history of prostate carcinoma which is being monitored/not treated. He has had a history of renal cell carcinoma which resulted in a partial nephrectomy. He states he has a spot on the other kidney which is being followed. He has received no other type of treatment for his renal cell carci noma. Intake Vital Signs: See EMR Intake Visit Reasons: Cardioversion Official Court Interpreter Required: No Accompanied by: Allergies hydromorphone HCl [From Dilaudid] Adverse Reaction (Verified 06/05/20 14:58) Shortness of breath Medications See EMR [facility] Medical History Atrial fibrillation (Acute) Hepatic cyst (Chronic) Essential hypertension (Chronic) Type 2 diabetes mellitus (Chronic) Sleep apnea (Chronic) Depression (Acute) Malignant neoplasm of left kidney (Chronic) Osteoarthritis (Chronic) Renal mass (Chronic) Ulcerative colitis (Chronic) Surgical History Cataract extraction status (Resolved) History of cholecystectomy (Resolved) History of partial nephrectomy (Resolved ~11/26/14) Family History Father Congestive heart failure Diabetes CVA (cerebral vascular accident) Brother Myocardial infarction Sister Parkinson disease Social History (Updated 06/05/20 @ 16:[address] Perry Clemens MD) Smoking Status: Former smoker alcohol intake: former substance use type: does not use caffeine: Yes Type: coffee Number of servings: 1 ROS Const Const: Positive for fatigue (increased); negative for weakness, frequent falls, excessive sweating, weight gain or weight loss Eyes Eyes: Negative for transient loss of vision, blurry vision or change in vision ENT ENT: Positive for dizziness (bending over) and balance problems (slight) Cardio Chest Pain: Yes Character: sharp Location: left chest Duration: brief Palpitations: No Edema: None Muscle aches with walking: None Resp Respiratory: Positive for SOB with activity (slightly increased); negative for SOB at rest GI GI: Negative vomiting or vomiting blood/hematemesis : Negative for hematuria Musc Musc: Positive for balance problems (slight); negative for muscle aches/ myalgia, muscle weakness or joint pain Skin Skin: Negative non-healing lesions or rash Neuro Neuro: Positive for dizziness (bending over); negative for lightheadedness, orthostatic symptoms, frequent falls, weakness or blurry vision Bob Hematologic/Lymphatic: Negative for easy bleeding Endo Endo: Positive for fatigue (increased); negative for excessive sweating Psych Psych: Negative for anxiety or depression Allergy Allergy/Immunology: Negative for hives, Negative for rash Cardiology Exam Const Appearance: cooperative, healthy appearing, comfortable, no acute distress, well developed and well groomed Nutritional Appearance: obese Orientation: alert, awake and oriented x3 Head Head: normal to inspection, normocephalic and atraumatic Ears: hearing grossly normal bilaterally Nose: external nose normal Face and Sinus: face symmetric Eyes Eyelids: eyelids normal Pupils: PERRL EOM: EOM intact bilaterally Neck Neck: normal visual inspection and full ROM Carotids: normal carotid upstroke Chest Chest inspection: normal inspection of the chest, symmetric chest movement and normal respiratory effort Auscultation: Bilateral: Clear to Auscultation Cardio Palpation: normal PMI Rhythm: irregularly irregular Heart sounds: S1 normal and S2 normal GI GI: normal to inspection, soft, bowel sounds present and obese Neuro General: alert, awake, oriented x3 and moves all extremities Skin Skin: no rashes or lesions noted Extremities Pulses: Normal: Right Radial Pulse, Left Radial Pulse Lower Extremity Edema: None: Bilateral Psych Psychological: normal affect Assessment & Plan 1. Persistent atrial fibrillation I48.19 Plan He remains in atrial fibrillation. He underwent echocardiogram on 06/19/2020 that showed ejection fraction of 60% and mildly enlarged left and right atrium. He underwent a stress test on 06/19/2020 and that was negative for ischemia. He will proceed with the cardioversion and routine outpatient follow-up. 2. Essential hypertension I10 Plan His blood pressure appears to be reasonably well controlled today. He will continue medical therapy. 3. Fatigue, unspecified type R53.83 Plan His fatigue will be evaluated with the aforementioned studies. 4. Hypokalemia E87.6 Plan If he remains hypokalemic then he will need further evaluation as deemed appropriate as well as potassium supplementation. Plan Detail Other Orders Additional Comments There is also concerned that he may have underlying obstructive sleep apnea. The Stop Bang assessment was performed as noted below. Based upon this would not be unreasonable for the patient to be evaluated with a formal sleep study. STOP-BANG Assessment: 1. Do you snore? Yes 2. Are you frequently tired during the day? Yes 3. Have you been observed gasping or choking while asleep? 4. Do you have high blood pressure? Yes 5. BMI - greater than 35kg/m2? Yes 6. Age - over 50 years old? Yes 7. Neck Circumference - greater than 37 cm for females or 40 cm for males? 8. Gender - male? Yes Total STOP-BANG score = 6 which indicates high risk for obstructive sleep retail delivery driver ea (yes to 3 or more questions = high risk of sleep apnea). Thank you for allowing me to participate in the care of your patient. Please don't hesitate to call if any issues arise. This note was generated using a voice recognition system and there may be incorrect words, spelling or punctuation that were not noted when reviewing the office note prior to saving. COVID (Procedure Consent) Procedure Criteria Procedure Criteria: Yes Elective The surgeon/proceduralist and patient have discussed in detail the risk of exposure to and/or potential harm posed by the COVID-19 virus with having a surgery/procedure at this time versus the risk of delaying the surgery/procedure. It is not possible to know either the risk of delaying the surgery or procedure or chance of getting an infection with perfect accuracy, but a joint decision was made between the patient and the surgeon/proceduralist to proceed at this time with the scheduled surgery/procedure as indicated on the consent form. Documented by User: Dr. Perry Clemens MD 07/14/20 07:59 History and Physical Date of Admission: 07/14/20 I have examined the patient the following changes are noted: Transthoracic echocardiogram: 06-19-2020 Interpretation Summary The study was technically difficult. Contrast injection was performed. Left ventricular systolic function is normal. The estimated ejection fraction is 60 %. Mild concentric left ventricular hypertrophy. The left atrium is mildly enlarged. The right atrium is mildly enlarged. Trivial mitral valve insufficiency. Trivial tricuspid valve insufficiency. Mild focal aortic valve calcification. Right ventricular systolic pressure estimated to be 42 mmHg. Unable to assess diastolic dysfunction. Stress Test Report Date: ?2020 Procedure: Pharmacologic stress nuclear imaging study Indications: Atrial fibrillation Consent: Per the patient Procedure: The patient underwent pharmacologic (Regadenoson 0.4mg ) evaluation with a peak heart rate of 105 beats per minute (70%predicted maximal heart rate) and a peak blood pressure of 152/98 mmHg. The baseline ECG demonstrated atrial fibrillation. The peak pharmacologic ECG demonstrated no obvious ECG changes. There was an isolated PVC during infusion. There was no complaint of chest discomfort during pharmacologic infusion or recovery. The examination was discontinued secondary to completion of protocol. Impression: 1. Pharmacologic (Regadenoson) evaluation 2. Peak pharmacologic ECG with continued atrial fibrillation with no obvious ECG changes. 3. There was an isolated PVC during infusion. 4. Nuclear images pending Myocardial perfusion imaging study: Technique: The patient was injected with 14.2 millicuries of technetium 99m Cardiolite and subsequently rest SPECT Cardiolite nuclear imaging was obtained in the horizontal long, vertical long, and short axis views. The patient underwent pharmacologic (Regadenoson) evaluation with a peak heart rate of 105 beats per minute (70% percent predicted maximal heart rate) and a peak blood pressure of 152/98 mmHg. The patient was injected with 44.7 millicuries of technetium 99m Cardiolite and subsequently stress SPECT Cardiolite nuclear imaging was obtained in the horizontal long, vertical long, and short axis views. A gated Cardiolite study at peak stress was obtained. Interpretation: Rest and stress SPECT Cardiolite nuclear imaging status post realignment, normalization, and attenuation correction demonstrate relative uniform tracer uptake and myocardial perfusion appearing within normal limits. There is end systolic thickening and brightening. The gated Cardiolite study demonstrates myocardial thickening and inward wall motion. The reported LVEF is 57%. Impression: 1. Rest and stress SPECT Cardiolite nuclear imaging demonstrate relative unif orm tracer uptake and myocardial perfusion appearing within normal limits. 2. The gated Cardiolite study reports an LVEF of 57%. Plan: Synchronized biphasic DC cardioversion The procedure and risks were discussed with the patient. He was agreeable to this approach.
--- NOTE | 2020-07-14 12:56 | PRO.PCM_ITS ---
Procedure Report Date of Procedure: 07/14/20 CONSCIOUS SEDATION REPORT DATE OF SERVICE: July 14, 2020 BRIEF HISTORY OF PRESENT ILLNESS: The patient is a 69-year-old male who presented to [facility] for an elective outpatient cardioversion due to underlying atrial fibrillation. His last surface echocardiogram revealed an ejection fraction of approximately 60%. He is currently anticoagulated on Eliquis. The patient denies any prior anesthetic complications. He does have a known history of obstructive sleep apnea, but reports noncompliance with the use of nocturnal Pap therapy. PHYSICAL EXAMINATION: VITAL SIGNS: Reviewed and were acceptable. GENERAL: The patient is an obese male, in no apparent distress, speaking in full sentences. HEENT: Normocephalic, atraumatic. Mucous membranes are moist and pink. Good mouth opening noted. Trachea is midline. CHEST: S1, S2 irregularly irregular. No murmurs, rubs or gallops were noted. LUNGS: Clear to auscultation bilaterally without appreciable wheezes, rales or rhonchi. ABDOMEN: Soft, nontender, nondistended. Positive bowel sounds. EXTREMITIES: There is no clubbing, cyanosis or edema. ASA Class: II DESCRIPTION OF PROCEDURE: After confirmation of informed consent, the patient's anesthesia plan was reviewed in detail. Propofol was chosen. Risks and benefits were reviewed and the patient agreed to proceed. At 1208, the patient was given his first bolus of propofol. In total, the patient required 80 mg of propofol to achieve an appropriate level of sedation, after which time, he received a 200 J synchronized cardioversion by Dr. Clemens at the bedside. This was successful in achieving normal sinus rhythm. The patient was monitored until 1219, at which time he reached his baseline mental status and function. The patient tolerated the procedure well. COMPLICATIONS: None ESTIMATED BLOOD LOSS: None RECOMMENDATIONS: Okay to recover in usual fashion. Procedures Pulmonary CF Procedures Pulmonary: 36331 Con Sedation
--- NOTE | 2020-07-14 13:02 | CARDIOVERS_ITS ---
Cardioversion Cardioversion: Date: 07-14-2020 Procedure: Synchronized Biphasic DC Cardioversion Indications: Atrial fibrillation Consent: Per the Patient Anesthesia: per Dr. Gonzalez of pulmonology and critical care medicine with propofol 80 mg IV push total Procedure: Synchronized Biphasic DC Cardioversion: 200 J x 1: Result: Sinus rhythm/sinus bradycardia; PACs Complications: no apparent complications This note was generated with [employer] software. It may contain incorrect words, spelling, and punctuation that were not noted in checking the note before signing.
== END 2020-07-14 13:20 | disposition home or self-care (01) ==
LOC: CLSP 10:22
PROVIDERS: PCP Family Medicine; Referring Provider Internal Medicine Cardiovascular Disease; Visit Provider Internal Medicine Cardiovascular Disease
DX: I48.19 Other persistent atrial fibrillation (principal); I10 Essential (primary) hypertension; E87.6 Hypokalemia; R53.83 Other fatigue; E11.9 Type 2 diabetes mellitus without complications; M19.90 Unspecified osteoarthritis, unspecified site; Z79.01 Long term (current) use of anticoagulants; Z79.84 Long term (current) use of oral hypoglycemic drugs; Z79.899 Other long term (current) drug therapy; Z87.891 Personal history of nicotine dependence; Z82.49 Family history of ischemic heart disease and other diseases of the circulatory system
CPT/HCPCS: 36415; 80048; 85610; 92960; 93005; J7040

== ENCOUNTER → 2020-08-26 20:04 | Outpatient (CLI) | payer MEDICARE, OTHER, SELFPAY ==
[2020-08-12 08:49] VITALS: BMI 40.5
== END ==
PROVIDERS: PCP Family Medicine; Referring Provider Nurse Practitioner Acute Care; Visit Provider Nurse Practitioner Acute Care
DX: G47.30 Sleep apnea, unspecified (principal)
CPT/HCPCS: 95811

== ENCOUNTER → 2020-10-15 08:42 | Outpatient (CLI) | payer MEDICARE, OTHER, SELFPAY ==
[2020-10-15 10:02] LABS: PSA,Total- Diagnostic 3.87 ng/mL (0.0-4.0)
== END ==
PROVIDERS: PCP Family Medicine; Referring Provider Urology; Visit Provider Urology
DX: C61 Malignant neoplasm of prostate (principal)
CPT/HCPCS: 36415; 84153

== ENCOUNTER → 2020-11-03 08:09 | Outpatient (CLI) | payer MEDICARE, OTHER, SELFPAY ==
--- NOTE | 2020-11-03 08:24 | CT_ITS ---
STUDY: CT ABDOMEN AND PELVIS WITH CONTRAST REASON FOR EXAM: Male, 70 years old. NEOPLASM OF RIGHT KIDNEY. History of partial right nephrectomy. RADIATION DOSAGE (If Supplied By Facility): CTDIvol = ( 22.63 ) mGy, DLP = ( 1450.55 ) mGycm TECHNIQUE: Transaxial images were obtained from the dome of the diaphragm to the symphysis pubis with oral contrast. Oral and amp;amp; IV Readi-CAT and amp;amp; 100mL Isovue-300 was administered. Sagittal and coronal images were reconstructed. Individualized dose optimization techniques were used for this CT. COMPARISON: Comparison is made with prior study dated 04/04/2019. FINDINGS: Minimal increased interstitial markings at the lung bases suggest some mild basilar scarring. The visualized portions of the heart are within normal limits. Stable 1.5 semi cyst in the lateral aspect of the left lobe of the liver. Fatty infiltration of the liver. There are surgical clips in the gallbladder fossa consistent with a prior cholecystectomy. Normal spleen. Normal pancreas. Normal bilateral adrenal glands. There is a persistent 1.7 cm hypodense nodule in the superior pole of the right kidney. This has decreased in size as compared to prior study. Stable subcentimeters cysts are seen in the lower pole of the right kidney. Focal scarring is seen in the midportion of the left kidney. Normal visualized stomach. Normal small intestine. Normal colon. The appendix is visualized and appears normal. There is scattered atherosclerotic calcification of the abdominal aorta, without a demonstrated aneurysm. Normal inferior vena cava. Normal retroperitoneum. Normal urinary bladder. There is enlargement of the prostate gland. Small bilateral inguinal hernias containing fat. There are degenerative changes of the visualized lumbar spine. CT/Abdomen/Pelvis WITH Contrast IMPRESSION: Since prior study, there has been a decrease in size of the cystic density of the upper pole of the right kidney. Electronically Signed: Germán Coyne MD at 9:51 EDT , Service support ,
[2020-11-03 08:36] LABS: CREATININE FINGERSTICK 0.7 mg/dL (0.70-1.30); EGFR FINGERSTICK > 60.0000 mL/min (>60)
== END ==
PROVIDERS: PCP Family Medicine; Referring Provider Urology; Visit Provider Urology
DX: D41.01 Neoplasm of uncertain behavior of right kidney (principal); Z90.5 Acquired absence of kidney; Z85.528 Personal history of other malignant neoplasm of kidney
CPT/HCPCS: 74177; Q9967

== ENCOUNTER → 2020-12-22 09:35 | Outpatient (CLI) | payer MEDICARE, OTHER, SELFPAY ==
[2020-12-22 10:22] LABS: AST(SGOT) 17 U/L (15-37); Alanine Aminotransfer ALT/SGPT 17 U/L (16-61); Albumin, Serum 3.4 g/dL (3.2-5.0); Alkaline Phosphatase 100 U/L (45-117); Bilirubin, Direct 0.19 mg/dL (0.00-0.30); Cholesterol 141 mg/dL (200); High Density Lipoprotein 43 mg/dL; Protein, Total 7.4 g/dL (6.4-8.2); Triglycerides 76 mg/dL; Very Low Density Lipoprotein 15 mg/dL (5-40)
== END ==
PROVIDERS: PCP Family Medicine; Referring Provider Nurse Practitioner Family; Visit Provider Nurse Practitioner Family
DX: E78.5 Hyperlipidemia, unspecified (principal); E11.9 Type 2 diabetes mellitus without complications
CPT/HCPCS: 36415; 80061; 80076

== ENCOUNTER → 2021-01-13 15:47 | Outpatient (CLI) | payer MEDICARE, OTHER, SELFPAY ==
[2021-01-13 17:48] LABS: Hematocrit 46.4 % (40-54); Hemoglobin 15.8 g/dL (13.0-16.5); Mean Corp Hgb Conc 34.1 g/dL (32-36); Mean Corpuscular Hgb 29.8 pg (27.0-32.0); Mean Corpuscular Volume 87.4 fL (80-94); Mean Platelet Vol. 11.1 fl (6.2-12.0); Platelet Count 181 K/mm3 (150-450); RBC Distribution Width CV 13.1 % (11.6-14.6); RBC Distribution Width SD 41.8 fl (35.1-43.9); Red Blood Count 5.31 M/mm3 (4.6-6.2); White Blood Count 9.8 K/mm3 (4.4-11.0)
[2021-01-13 18:01] LABS: ALB/GLOB Ratio 0.8 RATIO (0.9-2.4); AST(SGOT) 14 U/L (15-37); Alanine Aminotransfer ALT/SGPT 19 U/L (16-61); Albumin, Serum 3.3 g/dL (3.2-5.0); Alkaline Phosphatase 108 U/L (45-117); Anion Gap 3 (5-15); BUN 17 mg/dL (7-18); BUN/Creat Ratio 13.9 RATIO (10-20); Calcium,Total 8.8 mg/dL (8.5-10.1); Chloride 106 mmol/L (98-107); Creatinine, Serum 1.22 mg/dL (0.70-1.30); EST Glomerular Filtration Rate 62 mL/min (>60); Est Glom Filt Rate - Afr Amer 75 mL/min (>60); Glucose 244 mg/dL (74-106); Iron 53 ug/dL (65-175); Protein, Total 7.3 g/dL (6.4-8.2); Sodium Level 139 mmol/L (136-145)
== END ==
PROVIDERS: PCP Family Medicine; Referring Provider Internal Medicine Gastroenterology; Visit Provider Internal Medicine Gastroenterology
DX: K51.90 Ulcerative colitis, unspecified, without complications (principal)
CPT/HCPCS: 36415; 80053; 83540; 85027; 86140

== ENCOUNTER 2021-02-04 22:21 | Emergency (ER) | payer MEDICARE, OTHER, SELFPAY ==
[2021-02-04 22:21] VITALS: BP 155/61; PULSE 97; RESP 24; TEMP 37.6; O2SAT 90; BMI 37.2
--- NOTE | 2021-02-04 22:56 | EKG12_ITS ---
Test Reason : CONFUSION Blood Pressure : / mmHG Vent. Rate : 107 BPM Atrial Rate : 138 BPM P-R Int : 000 ms QRS Dur : 100 ms QT Int : 332 ms P-R-T Axes : 000 -01 051 degrees QTc Int : 443 ms Atrial fibrillation Nonspecific ST abnormality Abnormal ECG Confirmed by GET ORTIZ, ZAIN ([id number]), associate editor HILDA MAGUIRE ([id number]) on 02/05/2021 11:40:18 AM Referred By: BB Confirmed By:ZAIN DEUTSCH MD
--- NOTE | 2021-02-04 23:03 | EDS_ITS ---
HPI History of Present Illness Chief Complaint: Confusion Informant: patient and spouse/S.O. Onset/Context/Timing Onset: Today Context: - (Awoke like this) Timing: Continuous Quality: Confused Current Severity: Severe Maximum Severity: Severe Worsened by: Nothing Relieved by: Nothing Associated Symptoms Associated Symptoms: Many see below Narrative Narrative: Patient brought by his for confusion. Last seen normal yesterday, about 24 hours ago, given that they are evaluated around 2230. She states he woke up confused today and has been so all day. Symptoms between what the has seen and what the patient states: Patient had a headache earlier but not now, he has right-sided nonradiating nonpleuritic chest pain, he has been urinating very frequently, his blood sugar was in the 380s this morning and that is higher than it has ever been. states he has appeared to be short of breath although the patient denies it, and has had a rare cough. No known chills/fevers. Denies abdominal pain. No known contact with anyone with Covid, he has been vaccinated and is due this month for his booster injection. Lives at home with his and usually not confused. Has been a diabetic for 4 or 5 years, recently started on Januvia and also takes glipizide. He is on an unknown medication for his ulcerative colitis, his states it is not a biologic. [facility] Medical History (Updated 02/05/21 @ 07:[address] Royal Valdez MD) Atrial fibrillation Depression Essential hypertension Hepatic cyst Malignant neoplasm of left kidney Osteoarthritis Renal mass Sleep apnea Type 2 diabetes mellitus Ulcerative colitis Home Medications sitagliptin 50 mg PO DAILY 06/02/20 [History Last Taken Unknown] ascorbic acid (vitamin C) 500 mg tablet 500 mg PO DAILY 06/05/20 [History Last Taken Unknown] balsalazide 750 mg capsule 2,250 mg PO TID cap 06/05/20 [History Last Taken Unknown] cholecalciferol (vitamin D3) 10 mcg (400 unit) capsule 10 mcg PO DAILY 06/05/20 [History Last Taken Unknown] dorzolamide 2 % eye drops 1 drp OPHTHALMIC BID ml 06/05/20 [History Last Taken Unknown] finasteride 5 mg tablet 5 mg PO DAILY 06/05/20 [History Last Taken Unknown] glipizide 5 mg tablet, extended release 24 hr 5 mg PO BID tablet 06/05/20 [History Last Taken Unknown] lisinopril 10 mg tablet 10 mg PO DAILY 06/05/20 [History Last Taken 07/14/20] multivitamin 1 tablet PO DAILY 06/05/20 [History Last Taken Unknown] omega-3 fatty acids 1,000 mg capsule 1,000 mg PO DAILY 06/05/20 [History Last Taken Unknown] vitamins A,C,F-llnp-kbxrga 14,320 unit-226 mg-200 unit capsule 1 cap PO BID 06/05/20 [History Last Taken Unknown] zinc sulfate 25 mg zinc (110 mg) tablet 110 mg PO DAILY #1 tablet 06/05/20 [Rx Last Taken Unknown] atenolol 25 mg tablet 25 mg PO DAILY #30 tab 07/17/20 [Rx Last Taken Unknown] chlorthalidone 25 mg tablet 25 mg PO DAILY #30 tab 07/17/20 [Rx Last Taken Unknown] amlodipine 10 mg tablet 10 mg PO DAILY #1 tab 07/20/20 [Rx Last Taken Unknown] apixaban 5 mg tablet 5 mg PO BID #180 tab 10/20/20 [Rx Last Taken Unknown] Allergy/AdvReac Type Severity Reaction Status Date / Time hydromorphone HCl AdvReac Shortness Verified 12/22/20 09:07 [From Dilaudid] of breath Family History (Reviewed 12/22/20 @ 09:17 by Kye Alba WELDING PANTOGRAPH MACHINE OPERATOR, WELDING PANTOGRAPH MACHINE OPERATOR-C) Father Congestive heart failure Diabetes CVA (cerebral vascular accident) Brother Myocardial infarction Sister Parkinson disease Surgical History Cataract extraction status History of cholecystectomy History of partial nephrectomy (~11/26/14) Social History Smoking Status: Former smoker alcohol intake: former substance use type: does not use caffeine: Yes Type: coffee Number of servings: 1 ROS ROS ED Constitutional Constitutional ED: Reports malaise; Denies chills or fever(s) Eyes Eyes: Denies change in vision or diplopia ENT ENT ED: Reports rhinorrhea; Denies ear pain, nasal congestion or sore throat Cardiovascular Cardiovascular: Reports chest pain and pedal edema; Denies palpitations Respiratory/Chest Respiratory/Chest: Reports as per HPI and cough; Denies dyspnea Gastrointestinal Gastrointestinal: Denies abdominal pain, diarrhea, nausea or vomiting Genitourinary Genitourinary ED: Reports urinary frequency; Denies dysuria or hematuria Musculoskeletal Musculoskeletal: Denies back pain or neck pain Integumentary Denies abscess or rash Neurologic Neurologic: Reports as per HPI, abnormal gait, confusion, headache(s) and other Details: Gait has been with short steps today according to ; Denies paresthesias or weakness Psychiatric Psychiatric: Denies anxiety or suicidal thoughts EXAM Physical Exam Const Vital Signs: 02/04/21 22:21 02/04/21 23:27 02/05/21 01:42 Temperature 99.6 F H 103.2 F H 100.5 F H Temperature Source Temporal Oral Oral Pulse Rate 97 106 H 95 Respiratory Rate 24 H 31 H 30 H Blood Pressure 155/61 H 125/63 H 123/81 H Blood Pressure Mean 92 83 95 Pulse Ox 90 90 Oxygen Delivery Method Room Air Room Air Room Air 02/05/21 03:12 02/05/21 03:18 02/05/21 05:23 Temperature 99.1 F 98.1 F 98.6 F Temperature Source Oral Temporal Temporal Pulse Rate 78 96 Respiratory Rate 19 H 16 Blood Pressure 93/55 L 108/66 Blood Pressure Mean 67 80 Pulse Ox 100 93 Oxygen Delivery Method Room Air Room Air 02/05/21 07:09 Temperature 98.5 F Temperature Source Temporal Pulse Rate 84 Respiratory Rate 16 Blood Pressure 107/55 L Blood Pressure Mean 72 Pulse Ox 93 Oxygen Delivery Method Room Air Positive well nourished and well developed General Appearance ED: well developed and NAD HEENT Reports moist mucous membranes normocephalic and atraumatic Mouth ED: No trismus Mouth: No thrush and No trismus Throat: tonsils normal, uvula midline and posterior oropharynx abnormal Positive for erythema Eyes PERRL and EOMs intact bilaterally Neck full ROM, no lymphadenopathy, supple, no meningeal signs and no JVD Chest Wall inspection of chest normal and palpation of chest normal Resp normal respiratory effort and clear to auscultation bilaterally Cardio regular rate, regular rhythm and no murmurs GI non-tender and non-distended Auscultation: normoactive bowel sounds Palpation: soft Back/Spine no CVA tenderness General Back: other FROM Extremity normal to inspection General Extremety ED: Yes edema; Negative for pulses abnormal or tenderness General Extremity: edema bilateral lower extremity Details: mild (Symmetric, no signs of cellulitis); Negative for pulses abnormal Neuro CN's II-XII intact bilaterally and no sensory deficits noted Joy Coma Scale: document GCS findings To Voice Obeys Commands Confused 13 Sensorium / Orientation: awake, alert, oriented to person, oriented to place and orientation impaired; Negative for oriented to time Meningeal Signs: no meningeal signs Motor Exam: strength 5/5 throughout Skin no rashes or lesions noted and no wounds MDM MDM MDM Narrative Medical decision making narrative: Initial work-up shows an elevated lactate, mildly elevated renal labs, a leukocytosis with a leftward shift, with a normal chest x-ray and urinalysis. His temperature went up from 99.6-103.2. His oxygen saturations are borderline at 90%, making me suspicious for the possibility of an occult pneumonia. His Covid returned negative. I do not think he has pulmonary embolus with a temperature of 103 and no chest pain. His hyperglycemia is probably a result of the infection that he has, not necessarily the cause of the symptoms in my judgment at this time, but further exploration for the etiology of his fever was undertaken. We already had blood and urine cultures sent, therefore I additionally ordered CT chest and a respiratory panel (which includes influenza). The CT returned remarkable only for an enlarged left lobe of the thyroid gland but no acute occult pneumonia. Thyroid labs were ordered as well. These came back slightly abnormal, but inconsistent with acute hyperthyroidism. Ambulating: did well clinically, pulse ox 93% on room air. After treating his fever, his sensorium cleared and agreed he was acting much more appropriate, his disorientation was likely related to the fever. Blood sugar still almost 400 so we game him insulin for that as well as the IVF he was given. Patient had an extended stay because of the viral respiratory PCR panel that was obtained initially returned an invalid result in the lab had to repeat it, which we were not aware of until we called. Given the extended observation. In the emergency department waiting on test results, the patient has had the benefit of being observed and is not confused anymore and is doing very well clinically and hemodynamically. He is not hypoxic, currently satting at 95% on room air at rest. His fever is resolved and his other vital signs are back to normal. He wants to go home. I think he is stable enough to go home now, his heart rate is in the 80s with rate controlled atrial fibrillation, states that he had either an ablation or cardioversion, and now they do not know how long he has been in A. fib again, but he can follow-up as an outpatient for this since he is rate controlled and without angina. If his viral panel returned positive for anything, he will be reassured and stable for discharge, only prescribe Tamiflu if he has influenza. If it is negative, he is getting a dose of IV Rocephin 1 g to cover him against the possibility of occult bacteremia. He will follow-up as an outpatient, if his blood cultures returned positive he will be called to return. I discussed this with him and his and they are comfortable with this overall plan. Lab Data Attestation: I reviewed the patient's lab results. Labs: Laboratory Results - last 24 hr 02/04/21 02/04/21 02/04/21 22:20 22:20 22:20 WBC 13.7 H RBC 5.23 Hgb 15.0 Hct 45.4 MCV 86.8 MCH 28.7 MCHC 33.0 RDW Std Deviation 39.8 RDW Coeff of Ayaka 12.6 Plt Count 120 L MPV 11.1 Immature Gran % (Auto) 2.600 H Neut % (Auto) 90.0 H Lymph % (Auto) 2.2 L [place] % (Auto) 3.9 Eos % (Auto) 0.9 Baso % (Auto) 0.4 Absolute Neuts (auto) 12.3 H Absolute Lymphs (auto) 0.30 L Nucleated RBC % 0 Differential Comment SCANNED Sodium 135 L Potassium 3.9 Chloride 98 Carbon Dioxide 26.0 Anion Gap 11 BUN 23 H Creatinine 1.38 H Estim Creat Clear Calc 47.50 Est GFR (MDRD) Af Amer 65 Est GFR (MDRD) Non-Af 54 L BUN/Creatinine Ratio 16.7 Glucose 424 H Lactic Acid 2.1 H* Calcium 9.0 Total Bilirubin 1.10 H AST 37 ALT 30 Alkaline Phosphatase 119 H Troponin I High Sens 7 B-Natriuretic Peptide Total Protein 7.4 Albumin 3.4 Globulin 4.0 Albumin/Globulin Ratio 0.8 L TSH Thyroxine (T4) Free T3 pg/dL Urine Color Urine Clarity Urine pH Ur Specific [place] Urine Protein Urine Glucose (UA) Urine Ketones Urine Occult Blood Urine Nitrite Urine Bilirubin Urine Urobilinogen Ur Leukocyte Esterase Urine RBC Urine WBC Ur Squamous Epith Cells Urine Bacteria Urine Mucus POC Glucose 02/04/21 02/04/21 02/05/21 22:20 22:35 03:46 WBC RBC Hgb Hct MCV MCH MCHC RDW Std Deviation RDW Coeff of [place] Plt Count MPV Immature Gran % (Auto) Neut % (Auto) Lymph % (Auto) [place] % (Auto) Eos % (Auto) Baso % (Auto) Absolute Neuts (auto) Absolute Lymphs (auto) Nucleated RBC % Differential Comment Sodium Potassium Chloride Carbon Dioxide Anion Gap BUN Creatinine Estim Creat Clear Calc Est GFR (MDRD) Af Amer Est GFR (MDRD) Non-Af BUN/Creatinine Ratio Glucose Lactic Acid Calcium Total Bilirubin AST ALT Alkaline Phosphatase Troponin I High Sens B-Natriuretic Peptide 382.9 H Total Protein Albumin Globulin Albumin/Globulin Ratio TSH Thyroxine (T4) Free T3 pg/dL Urine Color Yellow Urine Clarity Clear Urine pH 5.0 Ur Specific [place] 1.010 Urine Protein 30 H Urine Glucose (UA) 1000 H Urine Ketones 50 H Urine Occult Blood 10 H Urine Nitrite Negative Urine Bilirubin Negative Urine Urobilinogen Normal Ur Leukocyte Esterase Negative Urine RBC 0 SEEN Urine WBC 0-5 SEEN Ur Squamous Epith Cells 0 SEEN Urine Bacteria RARE Urine Mucus 0 SEEN POC Glucose 398 H 02/05/21 02/05/21 02/05/21 03:55 03:55 07:08 WBC RBC Hgb Hct MCV MCH MCHC RDW Std Deviation RDW Coeff of Ayaka Plt Count MPV Immature Gran % (Auto) Neut % (Auto) Lymph % (Auto) [place] % (Auto) Eos % (Auto) Baso % (Auto) Absolute Neuts (auto) Absolute Lymphs (auto) Nucleated RBC % Differential Comment Sodium Potassium Chloride Carbon Dioxide Anion Gap BUN Creatinine Estim Creat Clear Calc Est GFR (MDRD) Af Amer Est GFR (MDRD) Non-Af BUN/Creatinine Ratio Glucose Lactic Acid 2.5 H* Calcium Total Bilirubin AST ALT Alkaline Phosphatase Troponin I High Sens B-Natriuretic Peptide Total Protein Albumin Globulin Albumin/Globulin Ratio TSH 0.31 L Thyroxine (T4) 5.3 Free T3 pg/dL 1.5 L Urine Color Urine Clarity Urine pH Ur Specific [place] Urine Protein Urine Glucose (UA) Urine Ketones Urine Occult Blood Urine Nitrite Urine Bilirubin Urine Urobilinogen Ur Leukocyte Esterase Urine RBC Urine WBC Ur Squamous Epith Cells Urine Bacteria Urine Mucus POC Glucose 343 H Radiography Diagnostic Testing: Clinical Impression(s) from Imaging Studies Chest X-Ray 02/04/21 23:05 IMPRESSION: No radiographic evidence of acute cardiopulmonary disease. at 0107 Reported and signed by: Malachi Ibrahim MD Electronically Signed: Malachi Ibrahim MD at 1:06 EST Tel , Service support , Chest CT 02/05/21 01:37 IMPRESSION: 1. Minimal scarring in the lungs. There are scattered mediastinal lymph nodes which may be reactive or inflammatory. There is no acute pulmonary abnormality. 2. Enlargement of the left lobe of the thyroid gland which may be due to a goiter. If indicated further evaluation with ultrasound beneficial. Individualized dose optimization techniques were used for this CT. at 0251 Reported and signed by: Malachi Ibrahim MD Electronically Signed: Malachi Ibraihm MD at 2:50 EST Tel , Service support , Brain CT 02/05/21 22:58 EKG Initial EKG: Attestation: I personally reviewed and interpreted this EKG as follows: Interpretation: No Acute Injury Pattern and Atrial Fibrillation (at 107) Prior EKG tracings: available for review (sinus jennifer; same morphology) Prior: Changed Discharge Plan Triage Chief Complaint: Confusion ED Provider: Royal Valdez Dx/Rx/DC Orders Clinical Impression: Hyperglycemia due to type 2 diabetes mellitus, Afib, SIRS (systemic inflammatory response syndrome), Fever Instructions: ED Diabetic Hyperglycemia, ED FUO Adult Prescriptions: No Action lisinopril 10 mg tablet 10 mg PO DAILY RF: 0 PreserVision AREDS [id number] capsule 1 cap PO BID RF: 0 atenolol 25 mg tablet 25 mg PO DAILY Qty: 30 RF: 11 chlorthalidone 25 mg tablet 25 mg PO DAILY Qty: 30 RF: 11 sitagliptin 50 MG tablet 50 mg PO DAILY RF: 0 glipizide 5 mg tablet extended release 24hr 5 mg PO BID RF: 0 ascorbic acid (vitamin C) 500 mg tablet 500 mg PO DAILY RF: 0 balsalazide 750 mg capsule 2,250 mg PO TID RF: 0 cholecalciferol (vitamin D3) 10 mcg (400 unit) capsule 10 mcg PO DAILY RF: 0 dorzolamide 2 % drops 1 drp OPHTHALMIC BID RF: 0 finasteride 5 mg tablet 5 mg PO DAILY RF: 0 multivitamin Tablet 1 tablet PO DAILY RF: 0 zinc sulfate 110 mg (25 mg zinc) tablet 110 mg (25 mg zinc) tablet 110 mg PO DAILY Qty: 1 RF: 0 omega-3 fatty acids [Fish Oil Concentrate] 1,000 mg capsule 1,000 mg PO DAILY RF: 0 amlodipine 10 mg tablet 10 mg PO DAILY Qty: 1 RF: 0 apixaban 5 mg tablet 5 mg PO BID Qty: 180 RF: 3 Primary Care Provider: Wilbur Larkin Referrals: iWlbur Larkin MD [Primary Care Provider] - (2-5 days, call for appointment) Activity Restrictions/Additional Instructions: You received a dose of IV Rocephin, which is a broad-spectrum antibiotic that will last for about 24 hours. It covers you against the unlikely possibility of a bacterial blood infection. If your blood cultures return positive, you will get a call concerning this to return to the ER. Disposition Disposition: Home, Self Care
--- NOTE | 2021-02-04 23:05 | RAD_ITS ---
EXAM: XR CHEST, 1 VIEW : 1950 CLINICAL INDICATION: cough chest pain right TECHNIQUE: Frontal view of the chest. This report was created using [employer] report generation technology. COMPARISON: 06/02/2020 FINDINGS: LUNGS AND PLEURAL SPACES: Unremarkable. No consolidation or edema. No pneumothorax. No effusion. HEART: Unremarkable. Cardiac silhouette not enlarged. MEDIASTINUM: Central airways and mediastinal contour are unremarkable. BONES/JOINTS: Unremarkable. SOFT TISSUES: Unremarkable. RAD/Chest 1 View (Portable) IMPRESSION: No radiographic evidence of acute cardiopulmonary disease. at 0107 Reported and signed by: Malachi Ibrahim MD Electronically Signed: Malachi Ibrahim MD at 1:06 EST Tel , Service support ,
[2021-02-04 23:27] VITALS: BP 125/63; PULSE 106; RESP 31; TEMP 39.6; O2SAT 90
[2021-02-04 23:41] LABS: Absolute Neutrophil Count 12.3 X10^3/uL (2.0-7.7); Basophil# 0.05 X10^3/uL; Basophil% 0.4 % (0-1); Eosinophil# 0.12 X10^3/uL; Eosinophils% 0.9 % (0-5); Hematocrit 45.4 % (40-54); Lymphocyte % 2.2 % (19-41); Mean Corpuscular Hgb 28.7 pg (27.0-32.0); Mean Corpuscular Volume 86.8 fL (80-94); Mean Platelet Vol. 11.1 fl (6.2-12.0); Monocyte# 0.54 X10^3/uL; Monocyte% 3.9 % (0-10); NRBC Flagged by Analyzer 0 % (0-5); Neutrophil # 12.33 X10^3/uL (2.7-7.7); POSITIVE DIFFERENTIAL YES; Platelet Count 120 K/mm3 (150-450); RBC Distribution Width CV 12.6 % (11.6-14.6); RBC Distribution Width SD 39.8 fl (35.1-43.9); Red Blood Count 5.23 M/mm3 (4.6-6.2); White Blood Count 13.7 K/mm3 (4.4-11.0)
[2021-02-04 23:42] LABS: Differential Indicated SCAN CRITERIA MET
[2021-02-04 23:49] LABS: Mucous, Urine 0 SEEN /hpf (<or=2+); Red Blood Cells-Urine 0 SEEN /hpf (0-5); Squamous Epithelial Cells - UA 0 SEEN /hpf (0-5)
[2021-02-04 23:52] LABS: ALB/GLOB Ratio 0.8 RATIO (0.9-2.4); AST(SGOT) 37 U/L (15-37); Alanine Aminotransfer ALT/SGPT 30 U/L (16-61); Albumin, Serum 3.4 g/dL (3.2-5.0); Alkaline Phosphatase 119 U/L (45-117); Anion Gap 11 (5-15); BUN 23 mg/dL (7-18); BUN/Creat Ratio 16.7 RATIO (10-20); Chloride 98 mmol/L (98-107); Creatinine, Serum 1.38 mg/dL (0.70-1.30); EST Glomerular Filtration Rate 54 mL/min (>60); Est Glom Filt Rate - Afr Amer 65 mL/min (>60); Glucose 424 mg/dL (74-106); Potassium 3.9 mmol/L (3.5-5.1); Protein, Total 7.4 g/dL (6.4-8.2); Sodium Level 135 mmol/L (136-145); Troponin-I HS 7 pg/mL (3.0-78.0)
[2021-02-04 23:54] LABS: Color, Urine Yellow (Yellow); Glucose, Dipstick 1000 mg/dl (Normal); Ketone-Dipstick 50 mg/dl (Negative); Leukocyte Esterase-Dipstick Negative /ul (Negative); Nitrite-Dipstick Negative (Negative); Occult Blood-Urine 10 /ul (Negative); Protein-Dipstick 30 mg/dl (Negative); Urine Bilirubin Dipstick Negative (Negative); Urine Clarity Clear (Clear); Urine Urobilinogen Normal (Normal)
[2021-02-04 23:58] LABS: Lactic Acid 2.1 mmol/L (0.4-1.9)
[2021-02-05] MEDS: 0.9% Normal Saline 1,000 ML 150 ML IV ×2 (00:05→05:21)
[2021-02-05 00:08] LABS: Differential Comment SCANNED
[2021-02-05 00:12] LABS: BNP,B-Type NATRIURETIC PEPTIDE 382.9 pg/mL (0-100)
[2021-02-05 00:20] LABS: Bacteria RARE /hpf (None Seen); White Blood Cells 0-5 SEEN /hpf (0-5)
--- NOTE | 2021-02-05 01:37 | CT_ITS ---
EXAM: CT CHEST WITHOUT INTRAVENOUS CONTRAST : 1950 CLINICAL INDICATION: sob/cough, fever, nml CXR, neg covid TECHNIQUE: Helically acquired images were obtained of the chest without intravenous contrast. This CT exam was performed using one or more of the following dose reduction techniques: automated exposure control, adjustment of the mA and/or kV according to patient size, and/or use of iterative reconstruction technique. This report was created using [employer] report generation technology. COMPARISON: None. FINDINGS: LUNGS AND PLEURAL SPACES: There is minimal scar in the lower lobes. There is no focal consolidation. No mass. No pleural effusion or thickening. No pneumothorax. HEART: Unremarkable. Heart size is normal. No pericardial effusion. MEDIASTINUM: Unremarkable. No mediastinal or hilar adenopathy. Esophagus is unremarkable. No hiatal hernia. THYROID: There is enlargement of the left lobe of the thyroid gland that measures 7.4 x 4.2 x 5.2 cm. BONES/JOINTS: Unremarkable. No suspicious lytic or blastic abnormality. VASCULATURE: Unremarkable. Thoracic aorta is non-dilated. LYMPH NODES: There is scattered mediastinal adenopathy which may be reactive or inflammatory. CT/Chest without Contrast IMPRESSION: 1. Minimal scarring in the lungs. There are scattered mediastinal lymph nodes which may be reactive or inflammatory. There is no acute pulmonary abnormality. 2. Enlargement of the left lobe of the thyroid gland which may be due to a goiter. If indicated further evaluation with ultrasound beneficial. Individualized dose optimization techniques were used for this CT. at 0251 Reported and signed by: Malachi Ibrahim MD Electronically Signed: Malachi Ibrahim MD at 2:50 EST Tel , Service support ,
[2021-02-05 01:42] VITALS: BP 123/81; PULSE 95; RESP 30; TEMP 38.1
[2021-02-05] MEDS: Acetaminophen 500 MG Tablet 1000 MG PO (01:47)
[2021-02-05 03:12] VITALS: TEMP 37.3; O2SAT 95
[2021-02-05 03:18] VITALS: BP 93/55; PULSE 78; RESP 19; TEMP 36.7; O2SAT 100
[2021-02-05 03:26] LABS: Reflex Lactate? Y
[2021-02-05 03:56] LABS: Bedside Glucose 398 mg/dL (70-110)
[2021-02-05 04:34] LABS: Lactic Acid 2.5 mmol/L (0.4-1.9)
[2021-02-05] MEDS: Insulin Lispro 100 UNIT/ML INSULN.PEN 14 UNIT SC (05:20)
[2021-02-05] MEDS: 0.9% Normal Saline 1,000 ML 999 ML IV (05:21)
[2021-02-05 05:23] VITALS: BP 108/66; PULSE 96; RESP 16; TEMP 37; O2SAT 93
[2021-02-05 05:35] LABS: Free T3 1.5 pg/mL (2.18-3.98); T4 Total, Thyroxin 5.3 ug/dL (4.5-12.1); Thyroid Stim Hormone (TSH) 0.31 uIU/mL (0.358-3.74)
[2021-02-05 07:09] VITALS: BP 107/55; PULSE 84; RESP 16; TEMP 36.9; O2SAT 93
[2021-02-05 07:15] LABS: Bedside Glucose 343 mg/dL (70-110)
[2021-02-05 07:41] LABS: Bedside Glucose 386 mg/dL (70-110)
[2021-02-05] MEDS: Ceftriaxone 1 GM/50 ML BAG IV (08:01)
[2021-02-05 08:02] VITALS: BP 122/67; PULSE 81; RESP 16; O2SAT 93
--- NOTE | 2021-02-05 22:58 | CT_ITS ---
[employer] Unformatted Report Format: Options: n 2f 2i act cap dr arechiga wm wcta sl lj Gender: Male : 1950 Exam: CT Head or Brain W/O Contrast Injection Comparison: History: altered mental status Contrast: The ventricular system and cortical sulci are at the upper limits of normal in size. There is minimal hypoattenuation in the periventricular white matter. Impression. No acute intracranial abnormality. Impression. Minimal underlying senescent change with small vessel ischemia. Individualized dose optimization techniques were used for this CT. at 0107 Reported and signed by: Malachi Ibrahim MD Electronically Signed: Malachi Ibrahim MD at 1:06 EST Tel , Service support , CT/Brain/Head without Contrast
--- NOTE | 2021-02-06 06:52 | ED.RN ---
CALLED PT AND SPOKE TO VIRAL, HE WILL RETURN.
== END 2021-02-05 09:08 | disposition home or self-care (01) ==
PROVIDERS: Emergency Provider Emergency Medicine; PCP Family Medicine
DX: E11.65 Type 2 diabetes mellitus with hyperglycemia (principal); I48.91 Unspecified atrial fibrillation; R50.9 Fever, unspecified; I10 Essential (primary) hypertension; M19.90 Unspecified osteoarthritis, unspecified site; Z90.5 Acquired absence of kidney; Z79.84 Long term (current) use of oral hypoglycemic drugs; Z79.01 Long term (current) use of anticoagulants; Z79.899 Other long term (current) drug therapy; Z87.891 Personal history of nicotine dependence
CPT/HCPCS: 70450; 71045; 71250; 80053; 81001; 82962; 83605; 83880; 84436; 84443; 84481; 84484; 85025; 87040; 87077; 87086; 87088; 87149; 87186; 87426; 87633; 93005; 99284; J7030; A4216

== ENCOUNTER 2021-02-06 07:20 | Inpatient (IN) | payer MEDICARE, OTHER, SELFPAY ==
[2021-02-06] VITALS (10 sets, daily range): BP systolic 127–148; BP diastolic 76–90; PULSE 78–104; RESP 16–22; TEMP 36.1–37.2; O2SAT 93–97; BMI 39.5; BMI 39.8
--- NOTE | 2021-02-06 07:26 | RAD_ITS ---
STUDY: X-RAY CHEST REASON FOR EXAM: Male, 70 years old. DYSPNEA TECHNIQUE: Single AP portable view of the chest. COMPARISON: 02/04/2021. FINDINGS: Hypoventilatory and mild atelectatic changes in the right lung base. There is no demonstrated pleural abnormality. There is borderline cardiomegaly. Normal mediastinum and nirav. Normal visualized pulmonary arteries. There is atherosclerotic tortuosity of the aortic arch and descending thoracic aorta. Stable osseous structures. Normal visualized ribs, clavicles, and shoulders. There is no demonstrated abnormality of the visualized soft tissue structures of the upper abdomen. RAD/Chest 1 View (Portable) IMPRESSION: Hypoventilatory and mild atelectatic changes in the right lung base. Electronically Signed: Chalo Salazar, at 8:24 EST Tel , Service support ,
--- NOTE | 2021-02-06 07:26 | EKG12_ITS ---
Test Reason : GENERAL ILLNESS Blood Pressure : / mmHG Vent. Rate : 087 BPM Atrial Rate : 091 BPM P-R Int : 000 ms QRS Dur : 100 ms QT Int : 378 ms P-R-T Axes : 000 006 025 degrees QTc Int : 454 ms Atrial fibrillation Abnormal ECG Confirmed by GET ORTIZ, ZAIN ([id number]), editor & co founder HILDA MAGUIRE ([id number]) on 02/08/2021 10:18:29 AM Referred By: Veto Nieto Confirmed By:ZAIN DEUTSCH MD
--- NOTE | 2021-02-06 07:48 | EX.ED.DYSGE1 ---
HPI History of Present Illness Chief Complaint: General Illness Narrative Narrative: 70-year-old female presenting for evaluation due to positive blood cultures for gram-positive cocci. Patient was seen on February 04 for fever and slight confusion, however his fever did resolve in the emergency room and he appeared to be more coherent. His viral respiratory panel was negative. His rapid Covid was negative. He previously had a CT of the chest which did not show any pneumonia. It did show an enlarged left lobe of the thyroid gland. Thyroid labs were tested and at that point did not appear to be suspicious for the cause of his symptoms. Patient states that he still feels short of breath. He is not coughing very much. He states that he does not have any chest pain. Its not known if he has had fever because he has been taking antipyretics at home. His states he had Tylenol today. He does not seem to be as confused per his . He is generally weak and having difficulty ambulating. They describe this as short shuffling steps. He has not fallen or hit his head. Patient does state he has a history of ulcerative colitis and his last colonoscopy was a couple of months ago done by Dr. Dexter that he was told he had active ulcerative colitis. He is on 2 medications for this. His states that there was blood in the toilet this morning. She states he only saw one time. She does not know if he would tell her if he had more that he does not admit to seeing more. He states he does not have abdominal pain. [facility] Medical History Atrial fibrillation Depression Essential hypertension Hepatic cyst Malignant neoplasm of left kidney Osteoarthritis Renal mass Sleep apnea Type 2 diabetes mellitus Ulcerative colitis Home Medications sitagliptin 50 mg PO DAILY 06/02/20 [History Last Taken Unknown] ascorbic acid (vitamin C) 500 mg tablet 500 mg PO DAILY 06/05/20 [History Last Taken Unknown] balsalazide 750 mg capsule 2,250 mg PO TID cap 06/05/20 [History Last Taken Unknown] cholecalciferol (vitamin D3) 10 mcg (400 unit) capsule 10 mcg PO DAILY 06/05/20 [History Last Taken Unknown] dorzolamide 2 % eye drops 1 drp OPHTHALMIC BID ml 06/05/20 [History Last Taken Unknown] finasteride 5 mg tablet 5 mg PO DAILY 06/05/20 [History Last Taken Unknown] glipizide 5 mg tablet, extended release 24 hr 5 mg PO BID tablet 06/05/20 [History Last Taken Unknown] lisinopril 10 mg tablet 10 mg PO DAILY 06/05/20 [History Last Taken 07/14/20] multivitamin 1 tablet PO DAILY 06/05/20 [History Last Taken Unknown] omega-3 fatty acids 1,000 mg capsule 1,000 mg PO DAILY 06/05/20 [History Last Taken Unknown] vitamins A,C,R-jtju-hhukxj 14,320 unit-226 mg-200 unit capsule 1 cap PO BID 06/05/20 [History Last Taken Unknown] zinc sulfate 25 mg zinc (110 mg) tablet 110 mg PO DAILY #1 tablet 06/05/20 [Rx Last Taken Unknown] atenolol 25 mg tablet 25 mg PO DAILY #30 tab 07/17/20 [Rx Last Taken Unknown] chlorthalidone 25 mg tablet 25 mg PO DAILY #30 tab 07/17/20 [Rx Last Taken Unknown] amlodipine 10 mg tablet 10 mg PO DAILY #1 tab 07/20/20 [Rx Last Taken Unknown] apixaban 5 mg tablet 5 mg PO BID #180 tab 10/20/20 [Rx Last Taken Unknown] apixaban [Eliquis] 5 mg PO BID 02/06/21 [History Last Taken Unknown] azathioprine 100 mg PO DAILY 02/06/21 [History Last Taken Unknown] Allergy/AdvReac Type Severity Reaction Status Date / Time hydromorphone HCl AdvReac Shortness Verified 02/06/21 07:24 [From Dilaudid] of breath Family History Father Congestive heart failure Diabetes CVA (cerebral vascular accident) Brother Myocardial infarction Sister Parkinson disease Surgical History Cataract extraction status History of cholecystectomy History of partial nephrectomy (~11/26/14) Social History Smoking Status: Former smoker alcohol intake: former substance use type: does not use caffeine: Yes Type: coffee Number of servings: 1 ROS ROS ED ROS Narrative Generalized weakness Constitutional Constitutional ED: Reports chills Eyes Eyes: Denies blurry vision or diplopia ENT ENT ED: Denies rhinorrhea or sore throat Cardiovascular Cardiovascular: Denies chest pain or palpitations Respiratory/Chest Respiratory/Chest: Reports dyspnea and dyspnea on exertion Gastrointestinal Gastrointestinal: Reports other Details: Bloody stools ; Denies abdominal pain, nausea or vomiting Genitourinary Genitourinary ED: Denies dysuria or hematuria Musculoskeletal Musculoskeletal: Reports myalgias; Denies arthralgias or neck pain Integumentary Denies Abrasions or rash Neurologic Neurologic: Reports headache(s); Denies paresthesias EXAM Physical Exam Const Vital Signs: 02/06/21 07:21 02/06/21 07:59 Temperature 98.2 F 98.2 F Temperature Source Temporal Temporal Pulse Rate 83 86 Respiratory Rate 20 H 16 Respiratory Effort Short of Breath Labored Accessory Muscle Use Respiratory Pattern Normal Blood Pressure 142/81 H 142/81 H Blood Pressure Mean 101 101 Pulse Ox 93 94 Oxygen Delivery Method Room Air Nasal Cannula Oxygen Flow Rate (L/min) 2 Positive obese Constitutional Narrative: Pulse ox noted to be 90% on room air on my examination. General Appearance ED: NAD; Negative for pallor Nutritional Appearance: obese HEENT Reports dry mucous membranes Negative for trauma Mouth ED: Yes dry mucous membranes Mouth: dry mucous membranes Eyes PERRL and EOMs intact bilaterally General Eye ED: Negative for pale conjunctiva Neck no lymphadenopathy, supple and no JVD Chest Wall inspection of chest normal and palpation of chest normal Resp normal respiratory effort and clear to auscultation bilaterally Auscultation: Negative for rales, rhonchi or wheezes Cardio regular rate and regular rhythm GI normal to inspection, nondistended, normoactive bowel sounds GI Narrative: Rectal exam shows no external hemorrhoids. I not palpate any internal hemorrhoids. Stool is brown on my examination. Occult stool is taken. Back/Spine no CVA tenderness Neuro oriented x3 and CN's II-XII intact bilaterally Sensorium / Orientation: alert Motor Exam: general weakness Psych mental status grossly normal Skin General Skin Exam: Negative for jaundice or pallor MDM MDM MDM Narrative Medical decision making narrative: Patient presenting with continued generalized weakness and shortness of breath. He was sent back because his blood cultures were positive for gram-positive cocci. Is not known if he had fevers because he is taking antipyretics. He does admit to bloody stools at home at least x1. Patient has generalized weakness significantly and is having trouble ambulating. He does appear to be alert and oriented x3. Will obtain a septic work-up. EKG is obtained and on my interpretation it shows atrial fibrillation with a ventricular rate of 87 bpm. It does appear that the patient has history of this and the rate is controlled. High-sensitivity troponin is 12. Patient is not complaining of chest pain. Chest x-ray on my interpretation shows no acute cardiopulmonary process and radiologist agree. Patient's white blood cell count is increased to 16.4. Hemoglobin Is 13.7 minutes which is down from 15. His Hemoccult stool was negative. Creatinine slightly worse at 1.59 and the patient was given IV fluids. Patient's total bilirubin has increased to 1.8, AST 78, alkaline phosphatase 119. Lactic acid 1.7. INR is normal. PT and APTT are slightly prolonged. Given the patient has positive blood cultures he was given a dose of vancomycin. I spoke with the hospitalist for admission. Blood cultures and urine cultures are again pending. Covid PCR is pending as well. I did not retest a viral panel otherwise. Impression: 1. Bacteremia 2. Generalized weakness Lab Data Labs: Laboratory Results - last 24 hr 02/06/21 02/06/21 02/06/21 07:35 07:35 07:35 WBC 16.4 H RBC 4.68 Hgb 13.7 Hct 40.4 MCV 86.3 MCH 29.3 MCHC 33.9 RDW Std Deviation 41.2 RDW Coeff of Ayaka 13.1 Plt Count 108 L MPV 12.2 H Immature Gran % (Auto) 0.700 Neut % (Auto) 89.5 H Lymph % (Auto) 5.6 L [place] % (Auto) 3.9 Eos % (Auto) 0.1 Baso % (Auto) 0.2 Absolute Neuts (auto) 14.6 H Absolute Lymphs (auto) 0.92 Nucleated RBC % 0 PT 19.4 H INR 1.7 APTT 43.2 H Sodium 133 L Potassium 3.5 Chloride 97 L Carbon Dioxide 26.0 Anion Gap 10 BUN 32 H Creatinine 1.59 H Estim Creat Clear Calc 38.45 Est GFR (MDRD) Af Amer 55 L Est GFR (MDRD) Non-Af 46 L BUN/Creatinine Ratio 20.1 H Glucose 354 H Lactic Acid Calcium 8.6 Total Bilirubin 1.80 H AST 78 H ALT 43 Alkaline Phosphatase 119 H Troponin I High Sens 12 Total Protein 6.9 Albumin 2.8 L Globulin 4.1 Albumin/Globulin Ratio 0.7 L 02/06/21 07:35 WBC RBC Hgb Hct MCV MCH MCHC RDW Std Deviation RDW Coeff of Ayaka Plt Count MPV Immature Gran % (Auto) Neut % (Auto) Lymph % (Auto) [place] % (Auto) Eos % (Auto) Baso % (Auto) Absolute Neuts (auto) Absolute Lymphs (auto) Nucleated RBC % PT INR APTT Sodium Potassium Chloride Carbon Dioxide Anion Gap BUN Creatinine Estim Creat Clear Calc Est GFR (MDRD) Af Amer Est GFR (MDRD) Non-Af BUN/Creatinine Ratio Glucose Lactic Acid 1.7 Calcium Total Bilirubin AST ALT Alkaline Phosphatase Troponin I High Sens Total Protein Albumin Globulin Albumin/Globulin Ratio Radiography Diagnostic Testing: Clinical Impression(s) from Imaging Studies Chest X-Ray 02/06/21 07:26 IMPRESSION: Hypoventilatory and mild atelectatic changes in the right lung base. Electronically Signed: Chalo Salazar, at 8:24 EST Tel , Service support , Discharge Plan Triage Chief Complaint: General Illness ED Provider: Thomas Caldwell Dx/Rx/DC Orders Primary Care Provider: Wilbur Larkin Disposition Discharge Date/Time: 02/06/21 10:12
[2021-02-06 08:04] LABS: Absolute Lymphocyte Count 0.92 X10^3/uL (0.83-4.51); Absolute Neutrophil Count 14.6 X10^3/uL (2.0-7.7); Basophil# 0.04 X10^3/uL; Basophil% 0.2 % (0-1); Eosinophil# 0.02 X10^3/uL; Eosinophils% 0.1 % (0-5); Hematocrit 40.4 % (40-54); Hemoglobin 13.7 g/dL (13.0-16.5); Lymphocyte # 0.92 X10^3/ul (0.83-4.51); Lymphocyte % 5.6 % (19-41); Mean Corp Hgb Conc 33.9 g/dL (32-36); Mean Corpuscular Hgb 29.3 pg (27.0-32.0); Mean Corpuscular Volume 86.3 fL (80-94); Mean Platelet Vol. 12.2 fl (6.2-12.0); Monocyte# 0.63 X10^3/uL; Monocyte% 3.9 % (0-10); NRBC Flagged by Analyzer 0 % (0-5); Neutrophil # 14.64 X10^3/uL (2.7-7.7); Neutrophil % 89.5 % (47-70); Platelet Count 108 K/mm3 (150-450); RBC Distribution Width CV 13.1 % (11.6-14.6); RBC Distribution Width SD 41.2 fl (35.1-43.9); Red Blood Count 4.68 M/mm3 (4.6-6.2); White Blood Count 16.4 K/mm3 (4.4-11.0)
[2021-02-06 08:18] LABS: ALB/GLOB Ratio 0.7 RATIO (0.9-2.4); AST(SGOT) 78 U/L (15-37); Alanine Aminotransfer ALT/SGPT 43 U/L (16-61); Albumin, Serum 2.8 g/dL (3.2-5.0); Alkaline Phosphatase 119 U/L (45-117); Anion Gap 10 (5-15); BUN 32 mg/dL (7-18); BUN/Creat Ratio 20.1 RATIO (10-20); Calcium,Total 8.6 mg/dL (8.5-10.1); Chloride 97 mmol/L (98-107); Creatinine, Serum 1.59 mg/dL (0.70-1.30); EST Glomerular Filtration Rate 46 mL/min (>60); Est Glom Filt Rate - Afr Amer 55 mL/min (>60); Estimated Creatinine Clearance 38.45 ml/min; Globulin 4.1 g/dL (2.2-4.2); Glucose 354 mg/dL (74-106); Potassium 3.5 mmol/L (3.5-5.1); Protein, Total 6.9 g/dL (6.4-8.2); Sodium Level 133 mmol/L (136-145); Troponin-I HS 12 pg/mL (3.0-78.0)
[2021-02-06 08:19] LABS: Lactic Acid 1.7 mmol/L (0.4-1.9)
[2021-02-06 08:35] LABS: International Normalized Ratio 1.7; Partial Thromboplast Time 43.2 Seconds (24.1-36.2); Prothrombin Time (Protime)PT. 19.4 SECONDS (11.7-14.9)
--- NOTE | 2021-02-06 09:10 | NURSING ---
MED SURG JOPPERI BACTEREMIA
[2021-02-06] MEDS: 0.9% Normal Saline 1,000 ML 999 ML IV (09:45)
[2021-02-06 09:52] LABS: Mucous, Urine 0 SEEN /hpf (<or=2+); Red Blood Cells-Urine 0 SEEN /hpf (0-5); Squamous Epithelial Cells - UA 0 SEEN /hpf (0-5)
[2021-02-06 09:55] LABS: Color, Urine Yellow (Yellow); Glucose, Dipstick 1000 mg/dl (Normal); Ketone-Dipstick 15 mg/dl (Negative); Leukocyte Esterase-Dipstick 25 /ul (Negative); Nitrite-Dipstick Negative (Negative); Occult Blood-Urine 25 /ul (Negative); Protein-Dipstick 30 mg/dl (Negative); Urine Clarity Sl. Cloudy (Clear); Urine Urobilinogen 1 mg/dl (Normal)
[2021-02-06 09:58] LABS: Urine Bilirubin Dipstick 1 mg/dL (Negative)
[2021-02-06 10:17] LABS: Bacteria 2+ /hpf (None Seen); White Blood Cells 0-5 SEEN /hpf (0-5)
--- NOTE | 2021-02-06 10:59 | PCS.PANDOC ---
PANDEMIC DOCUMENTATION INITIATED: Date: 10/12/2020 Time: 190
--- NOTE | 2021-02-06 11:41 | PCM.HP.STD ---
HPI - General General Date of Admission: 02/06/21 Date of Service: 02/06/21 Chief Complaint: Malaise HPI Narrative DAPHNE BARR, is a 70 M who presents w 2 days of feeling unwell. The other night, he felt awoke in his house confused, not knowing where he was. He presented to the ED and was sent home with an unremarkable work up. Later, his cultures came back positive for GPC and contacted and returned to the ED. He did complain of some hematochezia, but was heme negative in ED. He received vancomycin in the ED. [facility] Medical History (Updated 02/06/21 @ 11:[address] Veto Nieto, DO) Atrial fibrillation Depression Essential hypertension Hepatic cyst Malignant neoplasm of left kidney Osteoarthritis Renal mass Sleep apnea Type 2 diabetes mellitus Ulcerative colitis Home Medications sitagliptin 50 mg PO DAILY 06/02/20 [History Last Taken 02/04/21 09:00] ascorbic acid (vitamin C) 500 mg tablet 500 mg PO DAILY 06/05/20 [History Last Taken 02/04/21 09:00] balsalazide 750 mg capsule 2,250 mg PO TID cap 06/05/20 [History Last Taken 02/04/21 09:00] cholecalciferol (vitamin D3) 10 mcg (400 unit) capsule 10 mcg PO DAILY 06/05/20 [History Last Taken Unknown] dorzolamide 2 % eye drops 1 drp OPHTHALMIC BID ml 06/05/20 [History Last Taken 02/04/21 21:00] finasteride 5 mg tablet 5 mg PO DAILY 06/05/20 [History Last Taken 02/04/21 09:00] glipizide 5 mg tablet, extended release 24 hr 5 mg PO DAILY tablet 06/05/20 [History Last Taken Unknown] lisinopril 10 mg tablet 10 mg PO DAILY 06/05/20 [History Last Taken 02/04/21 09:00] omega-3 fatty acids 1,000 mg capsule 1,000 mg PO DAILY 06/05/20 [History Last Taken 02/04/21] amlodipine 10 mg PO DAILY 02/06/21 [History Last Taken 02/04/21 09:00] apixaban 5 mg PO BID 02/06/21 [History Last Taken 02/04/21 21:00] atenolol 25 mg PO DAILY 02/06/21 [History Last Taken 02/04/21 09:00] azathioprine 100 mg PO DAILY 02/06/21 [History Last Taken 02/04/21] chlorthalidone 25 mg PO DAILY 02/06/21 [History Last Taken 02/04/21 09:00] zinc sulfate 110 mg (25 mg zinc) tablet 110 mg PO DAILY 02/06/21 [History Last Taken 02/04/21 09:00] Allergy/AdvReac Type Severity Reaction Status Date / Time hydromorphone HCl AdvReac Shortness Verified 02/06/21 07:24 [From Dilaudid] of breath Family History Father Congestive heart failure Diabetes CVA (cerebral vascular accident) Brother Myocardial infarction Sister Parkinson disease Surgical History Cataract extraction status History of cholecystectomy History of partial nephrectomy (~11/26/14) Social History Smoking Status: Former smoker alcohol intake: former substance use type: does not use caffeine: Yes Type: coffee Number of servings: 1 ROS ROS Narrative Emotional. All review of systems were negative except as mentioned above in the history of present illness and the other review of systems. Vital Signs Vital Signs Vital Signs: 02/06/21 07:21 02/06/21 07:59 02/06/21 10:05 Temperature 36.8 C 36.8 C 36.1 C L Temperature Source Temporal Temporal Temporal Pulse Rate 83 86 78 Respiratory Rate 20 H 16 19 H Respiratory Effort Short of Breath Labored Accessory Muscle Use Respiratory Pattern Normal Blood Pressure 142/81 H 142/81 H 127/76 H Blood Pressure Mean 101 101 93 Blood Pressure Source Blood Pressure Position Blood Pressure Location Pulse Ox 93 94 96 Oxygen Delivery Method Room Air Nasal Cannula Nasal Cannula Oxygen Flow Rate (L/min) 2 2 02/06/21 10:30 Temperature 37.2 C Temperature Source Temporal Pulse Rate 82 Respiratory Rate 18 Respiratory Effort Respiratory Pattern Blood Pressure 139/78 H Blood Pressure Mean 98 Blood Pressure Source Monitor Blood Pressure Position Semi-Fowlers Blood Pressure Location Right Forearm Pulse Ox 97 Oxygen Delivery Method Nasal Cannula Oxygen Flow Rate (L/min) 2 Weight Weight: 112 kg Body Mass Index (BMI) 39.8 Physical Exam Const alert Constitutional Narrative: tearful at first. General Appearance: cooperative HEENT normocephalic and head/scalp atraumatic HEENT Narrative: no conjunctive hemorrhages Eyes Eyes Narrative: no icterus Neck no lymphadenopathy Neck Narrative: no thyromegaly Resp normal respiratory effort, no retractions, no use of accessory muscles and clear to auscultation bilaterally Cardio regular rate, regular rhythm, S1 normal heart sound and S2 normal heart sound GI normal to inspection, nondistended, normoactive bowel sounds, soft to palpation, non-tender and non-distended Extremity normal to inspection and full ROM Peripheral Pulses: Yes pulses 2+ throughout Skin no rashes or lesions noted Neuro oriented x3 Sensorium / Orientation: awake, alert and oriented to person Results Lab / Micro Data Attestation: I reviewed the patient's lab results. Result Diagrams: 02/06/21 07:35 02/06/21 07:35 Labs: Laboratory Results - last 24 hr 02/06/21 07:35: WBC 16.4 H, RBC 4.68, Hgb 13.7, Hct 40.4, MCV 86.3, MCH 29.3, MCHC 33.9, RDW Std Deviation 41.2, RDW Coeff of Ayaka 13.1, Plt Count 108 L, MPV 12.2 H, Immature Gran % (Auto) 0.700, Neut % (Auto) 89.5 H, Lymph % (Auto) 5.6 L, [place] % (Auto) 3.9, Eos % (Auto) 0.1, Baso % (Auto) 0.2, Absolute Neuts (auto) 14.6 H, Absolute Lymphs (auto) 0.92, Nucleated RBC % 0 02/06/21 07:35: PT 19.4 H, INR 1.7, APTT 43.2 H 02/06/21 07:35: Sodium 133 L, Potassium 3.5, Chloride 97 L, Carbon Dioxide 26.0, Anion Gap 10, BUN 32 H, Creatinine 1.59 H, Estim Creat Clear Calc 38.45, Est GFR (MDRD) Af Amer 55 L, Est GFR (MDRD) Non-Af 46 L, BUN/Creatinine Ratio 20.1 H, Glucose 354 H, Calcium 8.6, Total Bilirubin 1.80 H, AST 78 H, ALT 43, Alkaline Phosphatase 119 H, Troponin I High Sens 12, Total Protein 6.9, Albumin 2.8 L, Globulin 4.1, Albumin/Globulin Ratio 0.7 L 02/06/21 07:35: Lactic Acid 1.7 02/06/21 07:36: COVID-19 (BRADEN) Not Detected 02/06/21 09:45: Urine Color Yellow, Urine Clarity Sl. Cloudy, Urine pH 5.0, Ur Specific [place] 1.020, Urine Protein 30 H, Urine Glucose (UA) 1000 H, Urine Ketones 15 H, Urine Occult Blood 25 H, Urine Nitrite Negative, Urine Bilirubin 1 H, Urine Urobilinogen 1 H, Ur Leukocyte Esterase 25 H, Urine RBC 0 SEEN, Urine WBC 0-5 SEEN, Ur Squamous Epith Cells 0 SEEN, Urine Bacteria 2+, Urine Mucus 0 SEEN Micro: Microbiology 02/06/21 07:45 Stool Stool Occult Blood (JED) - Final Radiology Impression Chest X-Ray 02/06/21 07:26 IMPRESSION: Hypoventilatory and mild atelectatic changes in the right lung base. Electronically Signed: Chalo Marie, at 8:24 EST Tel , Service support , Assessment & Plan Assessment/Plan (1) Bacteremia: (2) DIANA (acute kidney injury): (3) Hyperbilirubinemia: PLAN: 1. Bacteremia Staph and GAS Vanc and CTX Repeat Cx drawn consider 2D echo if repeat Cx + no obvious source 2. DIANA suspect prerenal IVF monitor 3. Hyperbilirubinemia Unclear etiology/significance. check abd US monitor hold imuran for now 4. Afib rate controlled anticoagulated on apixaban 5. DM2 hold sitaliptin SSI 6. Ulcerative Colitis hold imuran given hyperbili continue balsalazide 7. Transient hematochezia heme negative in ED monitor 8. VTE prophylaxis: not indicated when on apixaban 9. Code status: addressed with pt--FULL CODE. Charges/Coding Visit Charges Inpatient E&M: 64329 Init Hosp L3
--- NOTE | 2021-02-06 11:59 | US_ITS ---
STUDY: ABDOMINAL ULTRASOUND - RIGHT UPPER QUADRANT REASON FOR VISIT: Male, 70 years old elevated bilirubin TECHNIQUE: Ultrasound evaluation of the right upper quadrant was performed with real-time and static tomlinson-scale imaging. TECHNICAL QUALITY: Adequate. COMPARISON: CT 11/03/2020 FINDINGS: Liver: The liver measures 18.3 cm. There is normal echogenicity of the liver. The bile ducts are within normal limits. There is hepatic color flow. The direction of portal flow is hepatopetal. There is no demonstrated mass lesion. Gallbladder: The patient is status post cholecystectomy.. Common Bile Duct (C.B.D.): The common bile duct measures 5 mm. Pancreas: Normal size of the head, body and tail of the pancreas. There is normal echogenicity of the pancreas. There is no demonstrated pancreatic mass or cyst. Right Kidney: Normal size of the right kidney. The right kidney measures 12.5 cm. Normal renal cortex. The right cortex measures 1.4 cm. 1 cm cyst in the upper pole the right kidney. 1.8 cm hypoechoic mass in the upper pole the right kidney worrisome for solid mass and correlation with renal mass protocol CT is recommended. There is no right hydronephrosis. US/Abdomen Limited IMPRESSION: 1.8 cm hypoechoic mass of the upper pole the right kidney and correlation with renal mass protocol CT or MRI is recommended to exclude solid mass, namely renal cell carcinoma. Electronically Signed: Abel Villela MD at 7:00 EST Tel , Service support ,
--- NOTE | 2021-02-06 12:29 | PCM.RX.CS ---
Consult Pharmacy has been consulted to manage selected antiobiotic: Vancomycin Type of Consult: New start Suspected Infection: Bacteremia Labs: Sodium 133 mmol/L (136-145) L 02/06/21 07:35 Potassium 3.5 mmol/L (3.5-5.1) 02/06/21 07:35 Chloride 97 mmol/L (98-107) L 02/06/21 07:35 Carbon Dioxide 26.0 mmol/L (21.0-32.0) 02/06/21 07:35 Anion Gap 10 (5-15) 02/06/21 07:35 BUN 32 mg/dL (7-18) H 02/06/21 07:35 Creatinine 1.59 mg/dL (0.70-1.30) H 02/06/21 07:35 Est GFR (MDRD) Af Amer 55 mL/min (>60) L 02/06/21 07:35 Est GFR (MDRD) Non-Af 46 mL/min (>60) L 02/06/21 07:35 BUN/Creatinine Ratio 20.1 RATIO (10-20) H 02/06/21 07:35 Glucose 354 mg/dL (74-106) H 02/06/21 07:35 Microbiology: Microbiology 02/06/21 07:45 Stool Stool Occult Blood (JED) - Final Goal Trough: 15-20 mcg/mL Pharmacy Plan for Drug Dosing: NEW START IV VANCOMYCIN Consulting Physician: Dr. Nieto Indication: Bacteremia (BCx from 02/04 growing GPC) Goal Trough: 15-20 SrCr: 1.59 CrCl: 38 mL/min Comments: Had 1750mg IV x1 in ED 02/06 @0945 Vancomycin Dose: 1500mg IV Q24hr. A loading dose was ordered upon admission. In lieu of giving a 250mg supplemental dose, will start scheduled vancomycin about 8hrs from ED dose, which would be 02/07/21 @0600 Pending Level: 02/08/21 @0530, prior to 4th total dose of vancomycin Pharmacy Service will continue to monitor and adjust dosing as required.
[2021-02-06] MEDS: 0.9% Normal Saline 1,000 ML 150 ML IV (12:58)
[2021-02-06] MEDS: Insulin Lispro 100 UNIT/ML INSULN.PEN SC (16:53)
[2021-02-06 17:15] LABS: Bedside Glucose 253 mg/dL (70-110)
--- NOTE | 2021-02-06 20:37 | EKG12_ITS ---
Test Reason : CP Blood Pressure : / mmHG Vent. Rate : 094 BPM Atrial Rate : 120 BPM P-R Int : 000 ms QRS Dur : 100 ms QT Int : 360 ms P-R-T Axes : 000 025 066 degrees QTc Int : 450 ms Atrial fibrillation Abnormal ECG Confirmed by MATT ORTIZ, JEAN PIERRE ([id number]), writer editor HILDA MAGUIRE ([id number]) on 02/10/2021 12:26:20 PM Referred By: Veto Nieto Confirmed By:JEAN PIERRE GUTIERREZ MD
[2021-02-06] MEDS: APIXABAN 5 MG TABLET PO (21:24)
[2021-02-06] MEDS: Docusate Sodium 100 MG Capsule PO (21:24)
[2021-02-06] MEDS: Dorzolamide 2% 10ml Bottle 1 DRP OPHTHALMIC (21:24)
[2021-02-07] VITALS (10 sets, daily range): BP systolic 118–150; BP diastolic 69–88; PULSE 73–98; RESP 18–20; TEMP 36.6–36.8; O2SAT 94–96
[2021-02-07 05:59] LABS: Absolute Lymphocyte Count 1.06 X10^3/uL (0.83-4.51); Absolute Neutrophil Count 10.1 X10^3/uL (2.0-7.7); Basophil# 0.03 X10^3/uL; Basophil% 0.2 % (0-1); Eosinophil# 0.21 X10^3/uL; Eosinophils% 1.7 % (0-5); Hematocrit 37.4 % (40-54); Hemoglobin 12.6 g/dL (13.0-16.5); Lymphocyte # 1.06 X10^3/ul (0.83-4.51); Lymphocyte % 8.6 % (19-41); Mean Corp Hgb Conc 33.7 g/dL (32-36); Mean Corpuscular Hgb 29.2 pg (27.0-32.0); Mean Corpuscular Volume 86.6 fL (80-94); Mean Platelet Vol. 12.4 fl (6.2-12.0); Monocyte% 7.3 % (0-10); NRBC Flagged by Analyzer 0 % (0-5); Neutrophil # 10.09 X10^3/uL (2.7-7.7); Neutrophil % 81.6 % (47-70); Platelet Count 100 K/mm3 (150-450); RBC Distribution Width CV 13.2 % (11.6-14.6); RBC Distribution Width SD 41.8 fl (35.1-43.9); Red Blood Count 4.32 M/mm3 (4.6-6.2); White Blood Count 12.4 K/mm3 (4.4-11.0)
[2021-02-07] MEDS: Insulin Lispro 100 UNIT/ML INSULN.PEN SC ×3 (06:24→17:16)
[2021-02-07 06:26] LABS: ALB/GLOB Ratio 0.6 RATIO (0.9-2.4); AST(SGOT) 44 U/L (15-37); Alanine Aminotransfer ALT/SGPT 37 U/L (16-61); Albumin, Serum 2.5 g/dL (3.2-5.0); Alkaline Phosphatase 126 U/L (45-117); Anion Gap 8 (5-15); BUN 25 mg/dL (7-18); BUN/Creat Ratio 21.9 RATIO (10-20); Calcium,Total 8.1 mg/dL (8.5-10.1); Chloride 98 mmol/L (98-107); Creatinine, Serum 1.14 mg/dL (0.70-1.30); EST Glomerular Filtration Rate 67 mL/min (>60); Est Glom Filt Rate - Afr Amer 81 mL/min (>60); Estimated Creatinine Clearance 53.63 ml/min; Glucose 277 mg/dL (74-106); Protein, Total 6.5 g/dL (6.4-8.2); Sodium Level 133 mmol/L (136-145)
[2021-02-07 06:45] LABS: Bedside Glucose 281 mg/dL (70-110)
[2021-02-07] MEDS: Dorzolamide 2% 10ml Bottle 1 DRP OPHTHALMIC ×2 (08:08→21:35)
[2021-02-07] MEDS: Ascorbic Acid 500 MG Tablet PO (08:09)
[2021-02-07] MEDS: Cholecalciferol (VIT D3) 25 MCG TABLET (1,000 UNITS) PO (08:09)
[2021-02-07] MEDS: Finasteride 5 MG Tablet PO (08:10)
[2021-02-07] MEDS: Omega-3 Acid Ethyl Esters 1 GM Capsule PO (08:10)
[2021-02-07] MEDS: amLODIPine 10 MG Tablet PO (08:10)
[2021-02-07] MEDS: APIXABAN 5 MG TABLET PO ×2 (08:10→21:35)
[2021-02-07] MEDS: Chlorthalidone 50 MG Tablet 25 MG PO (08:10)
[2021-02-07] MEDS: Atenolol 25 MG Tablet PO (08:10)
[2021-02-07] MEDS: glipiZIDE XL 5 MG Tablet PO (08:11)
[2021-02-07 11:36] LABS: Bedside Glucose 338 mg/dL (70-110)
--- NOTE | 2021-02-07 12:41 | PN.HOSP_ITS ---
Documented by User: Kye PAINTER 02/07/21 12:56 Subjective Subjective Patient is a 70-year-old male who is comfortably lying in bed, alert and orient x3. Patient reports significant improvement in his confusion from yesterday and is aware of his current status. Denies development of any new symptoms ov ernight. Does not appear in acute distress. Objective Data Objective Data Vital Signs: Vital Signs Temp Pulse Resp BP Pulse Ox 97.9 F 85 18 119/75 95 02/07/21 08:00 02/07/21 08:00 02/07/21 08:00 02/07/21 08:00 02/07/21 08:00 Oxygen Flow Rate (L/min) 2 Oxygen Delivery Method Nasal Cannula Weight: 246 lb 14.684 oz Body Mass Index (BMI) 39.8 Intake & Output: Intake and Output for Last 24 Hours 02/05/21 02/06/21 02/07/21 23:59 23:59 23:59 Intake Total 3075 / 3075 1020 / 1020 Output Total 250 / 250 900 / 900 Balance 2825 / 2825 120 / 120 Lab / Micro Data Result Diagrams: 02/07/21 05:30 02/07/21 05:30 Labs: Laboratory Results - last 24 hr 02/06/21 16:47: POC Glucose 253 H 02/07/21 05:30: WBC 12.4 H, RBC 4.32 L, Hgb 12.6 L, Hct 37.4 L, MCV 86.6, MCH 29.2, MCHC 33.7, RDW Std Deviation 41.8, RDW Coeff of [place] 13.2, Plt Count 100 L, MPV 12.4 H, Immature Gran % (Auto) 0.600, Neut % (Auto) 81.6 H, Lymph % (Auto) 8.6 L, [place] % (Auto) 7.3, Eos % (Auto) 1.7, Baso % (Auto) 0.2, Absolute Neuts (auto) 10.1 H, Absolute Lymphs (auto) 1.06, Nucleated RBC % 0 02/07/21 05:30: Sodium 133 L, Potassium 3.0 L, Chloride 98, Carbon Dioxide 27.0, Anion Gap 8, BUN 25 H, Creatinine 1.14, Estim Creat Clear Calc 53.63, Est GFR (MDRD) Af Amer 81, Est GFR (MDRD) Non-Af 67, BUN/Creatinine Ratio 21.9 H, Glucose 277 H, Calcium 8.1 L, Total Bilirubin 1.30 H, AST 44 H, ALT 37, Alkaline Phosphatase 126 H, Total Protein 6.5, Albumin 2.5 L, Globulin 4.0, Albumin/Globulin Ratio 0.6 L 02/07/21 06:23: POC Glucose 281 H 02/07/21 11:29: POC Glucose 338 H Micro: Microbiology 02/06/21 09:45 Urine, Clean Catch Urine Culture - Preliminary Culture exhibits no growth. 02/06/21 07:45 Stool Stool Occult Blood (JED) - Final Physical Exam Const alert, oriented x3 and no apparent distress HEENT head/scalp atraumatic and moist oral mucous membranes Head and Scalp: normocephalic Eyes PERRL, EOMs intact bilaterally and conjunctivae normal Neck no lymphadenopathy, supple and no JVD Resp normal respiratory effort, no retractions, no use of accessory muscles and clear to auscultation bilaterally Cardio regular rate, regular rhythm, no murmurs and no JVD GI normal to inspection, nondistended, normoactive bowel sounds, soft to palpation and non-tender Extremity normal to inspection, full ROM and no clubbing, cyanosis or edema Skin no rashes or lesions noted, no wounds, skin turgor normal and no jaundice Neuro CN's II-XII intact bilaterally Psych affect normal Assessment & Plan Assessment/Plan (1) Hyperbilirubinemia: (2) DIANA (acute kidney injury): (3) Bacteremia: PLAN: Day 1 Discharge planning: To be determined 1) bacteremia of unclear etiology. No obvious source of infection based off of labs and imaging, patient does have wheezing in the lung bases bilaterally, although chest x-ray did not demonstrate any acute pleural abnormality. Cultures demonstrated Staph epidermidis and Aerococcus species. Rapid Covid is negative, viral respiratory culture is negative. Repeat blood cultures pending. Continue vancomycin and rocephin. 2) DIANA Creatinine currently 1.1, 1.5 on admission. Continue IV fluids and continue to monitor. 3) hyperbilirubinemia Abdominal ultrasound ordered/pending. Continue to monitor and continue to hold Imuran. 4) A. fib Rate is controlled on atenolol and patient is anticoagulated on Eliquis. Continue home regimen. 5) DM2 Home sitagliptin on hold, continue Accu-Cheks assigned scale insulin. 6) ulcerative colitis Hold Imuran as above, continue balsalazide. 7) transient hematochezia Patient melena reports, he was negative in the ED. Continue to monitor. DVT prophylaxis - on chronic Eliquis. Patient seen by Kye Garsia PA-C, under the supervision of Dr. Nieto. Documented by User: Dr. Veto Nieto, 02/07/21 16:29 Objective Data Lab / Micro Data Result Diagrams: 02/07/21 05:30 02/07/21 05:30 Assessment & Plan Assessment/Plan (1) Hyperbilirubinemia: (2) Bacteremia: PLAN: Patient seen and examined independently. Data and vitals reviewed. I agree with the above note by the physician faculty i on call medical assistant. 1. Bacteremia Staph and GAS Vanc and CTX Repeat Cx drawn consider 2D echo if repeat Cx + no obvious source 2. DIANA resolved suspect prerenal IVF monitor 3. Hyperbilirubinemia Unclear etiology/significance. improved check abd US monitor hold imuran for now 4. Afib rate controlled anticoagulated on apixaban 5. DM2 hold sitaliptin SSI 6. Ulcerative Colitis hold imuran given hyperbili continue balsalazide 7. Transient hematochezia heme negative in ED monitor 8. VTE prophylaxis: not indicated when on apixaban 9. Code status: addressed with pt--FULL CODE. Charges/Coding Visit Charges Inpatient E&M: 13787 Subs Hosp L2
[2021-02-07] MEDS: BALSALAZIDE DISODIUM 750 MG CAPSULE 2250 MG PO ×2 (15:01→21:34)
[2021-02-07 16:11] LABS: Bedside Glucose 272 mg/dL (70-110)
[2021-02-07] MEDS: Docusate Sodium 100 MG Capsule PO (21:35)
[2021-02-07 23:21] LABS: Bedside Glucose 291 mg/dL (70-110)
[2021-02-08] VITALS (9 sets, daily range): BP systolic 103–141; BP diastolic 54–85; PULSE 70–97; RESP 18–20; TEMP 36.5–36.9; O2SAT 94–96
[2021-02-08 05:10] LABS: Absolute Lymphocyte Count 1.22 X10^3/uL (0.83-4.51); Absolute Neutrophil Count 9.5 X10^3/uL (2.0-7.7); Basophil# 0.03 X10^3/uL; Basophil% 0.3 % (0-1); Eosinophil# 0.23 X10^3/uL; Hematocrit 38.5 % (40-54); Hemoglobin 12.8 g/dL (13.0-16.5); Lymphocyte # 1.22 X10^3/ul (0.83-4.51); Lymphocyte % 10.4 % (19-41); Mean Corp Hgb Conc 33.2 g/dL (32-36); Mean Corpuscular Volume 87.1 fL (80-94); Mean Platelet Vol. 12.4 fl (6.2-12.0); Monocyte# 0.67 X10^3/uL; Monocyte% 5.7 % (0-10); NRBC Flagged by Analyzer 0 % (0-5); Neutrophil % 80.8 % (47-70); Platelet Count 107 K/mm3 (150-450); RBC Distribution Width CV 13.4 % (11.6-14.6); RBC Distribution Width SD 42.9 fl (35.1-43.9); Red Blood Count 4.42 M/mm3 (4.6-6.2); White Blood Count 11.7 K/mm3 (4.4-11.0)
[2021-02-08 05:23] LABS: Anion Gap 8 (5-15); BUN 26 mg/dL (7-18); BUN/Creat Ratio 21.1 RATIO (10-20); Calcium,Total 8.5 mg/dL (8.5-10.1); Chloride 99 mmol/L (98-107); Creatinine, Serum 1.23 mg/dL (0.70-1.30); EST Glomerular Filtration Rate 62 mL/min (>60); Est Glom Filt Rate - Afr Amer 75 mL/min (>60); Estimated Creatinine Clearance 49.71 ml/min; Glucose 274 mg/dL (74-106); Sodium Level 134 mmol/L (136-145)
[2021-02-08] MEDS: BALSALAZIDE DISODIUM 750 MG CAPSULE 2250 MG PO ×3 (07:07→21:30)
[2021-02-08] MEDS: Insulin Lispro 100 UNIT/ML INSULN.PEN SC ×3 (07:07→15:57)
[2021-02-08 08:01] LABS: Bedside Glucose 254 mg/dL (70-110)
--- NOTE | 2021-02-08 08:09 | PCM.RX.CS ---
Consult Pharmacy has been consulted to manage selected antiobiotic: Vancomycin Type of Consult: Follow-up Suspected Infection: Bacteremia Prior Doses of Antibiotics Received/Current Regimen: 1500mg iv q24h Labs: Sodium 134 mmol/L (136-145) L 02/08/21 04:44 Potassium 3.0 mmol/L (3.5-5.1) L 02/08/21 04:44 Chloride 99 mmol/L (98-107) 02/08/21 04:44 Carbon Dioxide 27.0 mmol/L (21.0-32.0) 02/08/21 04:44 Anion Gap 8 (5-15) 02/08/21 04:44 BUN 26 mg/dL (7-18) H 02/08/21 04:44 Creatinine 1.23 mg/dL (0.70-1.30) 02/08/21 04:44 Est GFR (MDRD) Af Amer 75 mL/min (>60) 02/08/21 04:44 Est GFR (MDRD) Non-Af 62 mL/min (>60) 02/08/21 04:44 BUN/Creatinine Ratio 21.1 RATIO (10-20) H 02/08/21 04:44 Glucose 274 mg/dL (74-106) H 02/08/21 04:44 Vancomycin Trough 9.0 ug/mL (5.0-15.0) 02/08/21 04:44 Microbiology: Microbiology 02/06/21 09:45 Urine, Clean Catch Urine Culture - Preliminary Culture exhibits no growth. 02/06/21 07:45 Stool Stool Occult Blood (JED) - Final Weight used for dosin kg Estimated Creatinine Clearance: 50 ml/min Goal Trough: 15-20 mcg/mL Pharmacy Plan for Drug Dosing: Trough today was 9.0 and was ~24hrs post dose. Renal improved from CrCl 38 to ~50ml/min. Will change dose to 1250mg iv q12h per protocol. Another trough level ordered for before 4th dose of new regimen. Pharmacy Service will continue to monitor and adjust dosing as required. Follow-Up Labs: Trough Vancomycin - 02.09.21@2130 before 2200 dose
[2021-02-08] MEDS: glipiZIDE XL 5 MG Tablet PO (08:14)
[2021-02-08] MEDS: Finasteride 5 MG Tablet PO (08:16)
[2021-02-08] MEDS: Ascorbic Acid 500 MG Tablet PO (08:16)
[2021-02-08] MEDS: APIXABAN 5 MG TABLET PO ×2 (08:16→21:30)
[2021-02-08] MEDS: Cholecalciferol (VIT D3) 25 MCG TABLET (1,000 UNITS) PO (08:16)
[2021-02-08] MEDS: Omega-3 Acid Ethyl Esters 1 GM Capsule PO (08:16)
[2021-02-08] MEDS: Atenolol 25 MG Tablet PO (10:41)
[2021-02-08] MEDS: Chlorthalidone 50 MG Tablet 25 MG PO (10:41)
[2021-02-08] MEDS: amLODIPine 10 MG Tablet PO (10:41)
[2021-02-08] MEDS: Dorzolamide 2% 10ml Bottle 1 DRP OPHTHALMIC ×2 (10:41→21:30)
--- NOTE | 2021-02-08 10:50 | CASEMGMT ---
DIANE WADE assessment: Face to face with pt for initial transition planning/care coordination assessment. DIANE WADE introduced self and role at [facility], pt voices understanding and consents to assessment. Pt is sitting up in chair on 2L in no distress. Pt is A/Ox4 and answers all questions appropriately, but is at bedside and answers most questions for pt. Pt falls back to sleep when not verbally stimulated. Care providers, pharmacy, and demographics verified. Presentation: Pt called to come back to hospital d/t positive blood cx's, pt also c/o weakness and blood in toilet this am Admitting dx: Bacteremia PCP: [facility] Specialists: Pt states no current specialists. Preferred Pharmacy: [facility] Insurance: [facility] A/B, AARP Prescription Benefit: MCR D Living Will/HPOA: Pt states does not have LW/HPOA and declines AD info. LNOK: Katey Corley, Living Arrangements: Pt lives with on main level of 2 story home with a couple steps in and states no concerns at home. Pt is independent with ADL's. Transportation: Pt states drives and states no transportation concerns. DME/HHC: states pt has no current DME and states no preference for DME company, if qualifies for home oxygen or therapy recommends further DME. states no hx of HHC or SNF. states no concerns with pt going home at time of discharge. Pt is retired. Pt does not smoke cigarettes or drink ETOH. Pt/ voice no further concerns/needs. CM to follow for home oxygen testing, therapy notes, and any further discharge planning/needs. Advised to ask for CM if any further questions/concerns/needs arise, voices understanding. Pt Goal: Home Plan: [place] DIANE WADE
[2021-02-08 11:16] LABS: Bedside Glucose 359 mg/dL (70-110)
--- NOTE | 2021-02-08 12:14 | PN.HOSP_ITS ---
Documented by User: Kye PAINTER 02/08/21 12:31 Subjective Subjective Patient is a 70-year-old male comfortably resting in a chair, alert and orient x3. Patient denies development of any new symptoms overnight. Does not appear in acute distress. Objective Data Objective Data Vital Signs: Vital Signs Temp Pulse Resp BP Pulse Ox 97.9 F 78 20 H 121/72 H 95 02/08/21 10:38 02/08/21 10:38 02/08/21 10:38 02/08/21 10:38 02/08/21 10:38 Oxygen Flow Rate (L/min) 2 Oxygen Delivery Method Nasal Cannula Weight: 246 lb 14.684 oz Body Mass Index (BMI) 39.8 Intake & Output: Intake and Output for Last 24 Hours 02/06/21 02/07/21 02/08/21 23:59 23:59 23:59 Intake Total 3075 / 3075 1140 / 1140 50 / 50 Output Total 250 / 250 1150 / 1150 250 / 250 Balance 2825 / 2825 -10 / -10 -200 / -200 Lab / Micro Data Result Diagrams: 02/08/21 04:44 02/08/21 04:44 Labs: Laboratory Results - last 24 hr 02/07/21 15:42: POC Glucose 272 H 02/07/21 21:39: POC Glucose 291 H 02/08/21 04:44: Vancomycin Trough 9.0 02/08/21 04:44: WBC 11.7 H, RBC 4.42 L, Hgb 12.8 L, Hct 38.5 L, MCV 87.1, MCH 29.0, MCHC 33.2, RDW Std Deviation 42.9, RDW Coeff of [place] 13.4, Plt Count 107 L, MPV 12.4 H, Immature Gran % (Auto) 0.800, Neut % (Auto) 80.8 H, Lymph % (Auto) 10.4 L, [place] % (Auto) 5.7, Eos % (Auto) 2.0, Baso % (Auto) 0.3, Absolute Neuts (auto) 9.5 H, Absolute Lymphs (auto) 1.22, Nucleated RBC % 0 02/08/21 04:44: Sodium 134 L, Potassium 3.0 L, Chloride 99, Carbon Dioxide 27.0, Anion Gap 8, BUN 26 H, Creatinine 1.23, Estim Creat Clear Calc 49.71, Est GFR (MDRD) Af Amer 75, Est GFR (MDRD) Non-Af 62, BUN/Creatinine Ratio 21.1 H, Glucose 274 H, Calcium 8.5 02/08/21 07:05: POC Glucose 254 H 02/08/21 11:11: POC Glucose 359 H Micro: Microbiology 02/06/21 09:45 Urine, Clean Catch Urine Culture - Final Culture exhibits no growth. 02/06/21 07:45 Stool Stool Occult Blood (JED) - Final Physical Exam Const alert, oriented x3 and no apparent distress HEENT head/scalp atraumatic, moist oral mucous membranes and oropharynx normal Head and Scalp: normocephalic Eyes PERRL, EOMs intact bilaterally and conjunctivae normal Neck no lymphadenopathy, supple and no JVD Resp normal respiratory effort, no retractions, no use of accessory muscles and clear to auscultation bilaterally Cardio regular rate, regular rhythm, no murmurs and no JVD GI normal to inspection, nondistended, normoactive bowel sounds, soft to palpation and non-tender Extremity normal to inspection, full ROM and no clubbing, cyanosis or edema Peripheral Pulses: Yes pulses 2+ throughout Skin no rashes or lesions noted, no wounds, skin turgor normal and no jaundice Neuro CN's II-XII intact bilaterally Psych affect normal Assessment & Plan Assessment/Plan (1) Bacteremia: (2) DIANA (acute kidney injury): (3) Hyperbilirubinemia: PLAN: Day 2 Discharge planning: Current plan is to discharge home. 1) bacteremia of unclear etiology. No obvious source of infection based off of labs and imaging, patient does have wheezing in the lung bases bilaterally, although chest x-ray did not demonstrate any acute pleural abnormality and vital signs are stable.. Cultures demonstrated Staph epidermidis and Aerococcus species. Rapid Covid is negative, viral respiratory culture is negative. Repeat urine cultures are negative. Repeat blood cultures pending. Continue vancomycin and rocephin. 2) hypokalemia Potassium is currently 3.0, oral supplementation ordered. Continue to monitor BMP. 3) DIANA Creatinine currently 1.23, 1.5 on admission. Continue IV fluids and continue to monitor. 4) hyperbilirubinemia Abdominal ultrasound ordered/pending. Continue to monitor and continue to hold Imuran. 5) A. fib Rate is controlled on atenolol and patient is anticoagulated on Eliquis. Continue home regimen. 6) DM2 Home sitagliptin on hold, continue Accu-Cheks assigned scale insulin. 7) ulcerative colitis Hold Imuran as above, continue balsalazide. 8) transient hematochezia Patient self reports melena, not observed throughout admission, occult positive stool was negative in the ED. Continue to monitor. DVT prophylaxis - on chronic Eliquis. Patient seen by Kye Garsia PA-C, under the supervision of Dr. Ham. Documented by User: Dr. Moose Ham MD 02/08/21 18:15 Subjective Subjective Patient had bacteremia. No fever since 02/05, 1 AM No respiratory distress. Patient had burning micturition mainly penile urethra which is better now. Objective Data Lab / Micro Data Result Diagrams: 02/08/21 04:44 02/08/21 04:44 Assessment & Plan Assessment/Plan (1) Bacteremia: PLAN: This patient was seen in conjunction with MADINA Blanchard. I have independently interviewed and examined the patient and reviewed pertinent history, examination findings, laboratory and plan of management. I have reviewed the note and agree with the documented findings with the few additional points. In brief, patient is admitted for bacteremia, which showed gram-positive cocci possible skin contamination. NAAT method did not show staph Enterococcus strep Listeria or macular resistance. Presumptive micrococcus species. Urine culture shows staph epidermidis/Aerococcus less than 1000/m probably has gotten antibiotic prior to culture. Patient will need total of 7 days of antibiotic after afebrile. Rest of comorbidities as documented above I have discussed my assessment with MADINA Blanchard and orders have been reviewed. Charges/Coding Visit Charges Inpatient E&M: 48123 Subs Hosp L2
[2021-02-08] MEDS: Docusate Sodium 100 MG Capsule PO (15:46)
[2021-02-08 16:01] LABS: Bedside Glucose 254 mg/dL (70-110)
[2021-02-08 22:40] LABS: Bedside Glucose 332 mg/dL (70-110)
[2021-02-09 02:48] VITALS: BP 149/90; PULSE 99; RESP 18; TEMP 36.6; O2SAT 95
[2021-02-09] MEDS: Insulin Lispro 100 UNIT/ML INSULN.PEN SC ×2 (06:32→11:30)
[2021-02-09] MEDS: BALSALAZIDE DISODIUM 750 MG CAPSULE 2250 MG PO ×2 (06:33→13:28)
[2021-02-09 06:40] LABS: Bedside Glucose 281 mg/dL (70-110)
[2021-02-09 08:10] VITALS: O2SAT 91
[2021-02-09 08:44] LABS: Absolute Lymphocyte Count 1.25 X10^3/uL (0.83-4.51); Absolute Neutrophil Count 7.9 X10^3/uL (2.0-7.7); Basophil# 0.04 X10^3/uL; Basophil% 0.4 % (0-1); Eosinophil# 0.38 X10^3/uL; Eosinophils% 3.7 % (0-5); Hematocrit 37.8 % (40-54); Hemoglobin 12.5 g/dL (13.0-16.5); Lymphocyte # 1.25 X10^3/ul (0.83-4.51); Lymphocyte % 12.1 % (19-41); Mean Corp Hgb Conc 33.1 g/dL (32-36); Mean Corpuscular Hgb 28.7 pg (27.0-32.0); Mean Corpuscular Volume 86.9 fL (80-94); Mean Platelet Vol. 11.9 fl (6.2-12.0); Monocyte# 0.62 X10^3/uL; NRBC Flagged by Analyzer 0 % (0-5); Neutrophil # 7.86 X10^3/uL (2.7-7.7); Neutrophil % 76.4 % (47-70); Platelet Count 130 K/mm3 (150-450); RBC Distribution Width CV 13.3 % (11.6-14.6); RBC Distribution Width SD 42.8 fl (35.1-43.9); Red Blood Count 4.35 M/mm3 (4.6-6.2); White Blood Count 10.3 K/mm3 (4.4-11.0)
[2021-02-09 08:45] VITALS: BP 131/89; PULSE 70; RESP 16; TEMP 36.6; O2SAT 96
[2021-02-09] MEDS: 0.9% Saline Lock 10 ML Syringe IV (08:51)
[2021-02-09] MEDS: glipiZIDE XL 5 MG Tablet PO (08:53)
[2021-02-09] MEDS: Docusate Sodium 100 MG Capsule PO (08:53)
[2021-02-09] MEDS: APIXABAN 5 MG TABLET PO (08:53)
[2021-02-09] MEDS: Potassium Chloride Oral Tablet 20 MEQ 40 MEQ PO (08:53)
[2021-02-09] MEDS: Finasteride 5 MG Tablet PO (08:54)
[2021-02-09] MEDS: Cholecalciferol (VIT D3) 25 MCG TABLET (1,000 UNITS) PO (08:54)
[2021-02-09] MEDS: Atenolol 25 MG Tablet PO (08:54)
[2021-02-09] MEDS: Chlorthalidone 50 MG Tablet 25 MG PO (08:54)
[2021-02-09] MEDS: Omega-3 Acid Ethyl Esters 1 GM Capsule PO (08:54)
[2021-02-09] MEDS: amLODIPine 10 MG Tablet PO (08:54)
[2021-02-09] MEDS: Ascorbic Acid 500 MG Tablet PO (08:54)
[2021-02-09] MEDS: Dorzolamide 2% 10ml Bottle 1 DRP OPHTHALMIC (08:55)
[2021-02-09 09:12] LABS: Anion Gap 6 (5-15); BUN 24 mg/dL (7-18); BUN/Creat Ratio 21.4 RATIO (10-20); Calcium,Total 9.1 mg/dL (8.5-10.1); Chloride 101 mmol/L (98-107); Creatinine, Serum 1.12 mg/dL (0.70-1.30); EST Glomerular Filtration Rate 69 mL/min (>60); Est Glom Filt Rate - Afr Amer 83 mL/min (>60); Estimated Creatinine Clearance 54.59 ml/min; Glucose 135 mg/dL (74-106); Potassium 2.9 mmol/L (3.5-5.1); Sodium Level 139 mmol/L (136-145)
--- NOTE | 2021-02-09 10:35 | PCM.DC ---
Discharge Instructions Diet Discharge Diet: No restrictions Activity Discharge Activity: Return to Normal Activity Weight Bearing Status: Weight bearing as tolerated Dressing / Incision Call your doctor if you observe: Fever of 101 or Higher, Numbness or Tingling, Shortness of breath, Dizziness, Chest pain, Increased palpitations (irregular heartbeat) and Calf discomfort Follow Up Care Please Follow Up With: Primary care provider When: Within the next two weeks. Test Results: Test results from this visit will be discussed in further detail at your follow-up appointment, if applicable. Discharge Plan Admission Admit Date/Time: 02/06/21 11:33 Primary Reason for Your Visit: Wheezing. Attending Provider: Moose Ham Primary Care Provider: Wilbur Larkin Discharge Orders/Prescriptions Prescriptions: New furosemide [Lasix] 20 mg tablet 20 mg PO DAILY Qty: 30 RF: 0 levofloxacin 750 mg tablet 750 mg PO DAILY Qty: 3 RF: 0 potassium chloride 20 mEq tablet,ER particles/crystals 20 meq PO DAILY Qty: 30 RF: 0 Continued lisinopril 10 mg tablet 10 mg PO DAILY RF: 0 sitagliptin 50 MG tablet 50 mg PO DAILY RF: 0 glipizide 5 mg tablet extended release 24hr 5 mg PO DAILY RF: 0 azathioprine 50 mg tablet 100 mg PO DAILY RF: 0 atenolol 25 mg tablet 25 mg PO DAILY RF: 0 chlorthalidone 25 mg tablet 25 mg PO DAILY RF: 0 amlodipine 10 mg tablet 10 mg PO DAILY RF: 0 apixaban 5 mg tablet 5 mg PO BID RF: 0 zinc sulfate 110 mg (25 mg zinc) tablet 110 mg (25 mg zinc) 110 mg PO DAILY RF: 0 ascorbic acid (vitamin C) 500 mg tablet 500 mg PO DAILY RF: 0 balsalazide 750 mg capsule 2,250 mg PO TID RF: 0 cholecalciferol (vitamin D3) 10 mcg (400 unit) capsule 10 mcg PO DAILY RF: 0 dorzolamide 2 % drops 1 drp OPHTHALMIC BID RF: 0 finasteride 5 mg tablet 5 mg PO DAILY RF: 0 omega-3 fatty acids [Fish Oil Concentrate] 1,000 mg capsule 1,000 mg PO DAILY RF: 0 Referrals / Follow Up: Wilbur Larkin MD [Primary Care Provider] - Within 2 Weeks Disposition Disposition (needs filled in before D/C Order can be placed): Home, Self Care
[2021-02-09 11:35] LABS: Bedside Glucose 283 mg/dL (70-110)
[2021-02-09] MEDS: Potassium Chloride 10mEq/100mL 10 MEQ/100 ML IV.SOLN. 100 MEQ IV BOLUS ×2 (12:20→13:27)
[2021-02-09 12:23] VITALS: O2SAT 84; O2SAT 88; O2SAT 91
--- NOTE | 2021-02-09 13:18 | DS.PCM_ITS ---
Documented by User: Kye PAINTER 02/09/21 13:25 Providers Date of Admission: 02/06/21 Primary Care Physician: Dr. Wilbur Larkin MD Reason For Visit: BACTEREMIA Diagnosis Discharge Diagnosis (1) Bacteremia: Status: Acute Code(s): R78.81 - Bacteremia Medications at Discharge Home Medications sitagliptin 50 mg PO DAILY 06/02/20 ascorbic acid (vitamin C) 500 mg tablet 500 mg PO DAILY 06/05/20 balsalazide 750 mg capsule 2,250 mg PO TID cap 06/05/20 cholecalciferol (vitamin D3) 10 mcg (400 unit) capsule 10 mcg PO DAILY 06/05/20 dorzolamide 2 % eye drops 1 drp OPHTHALMIC BID ml 06/05/20 finasteride 5 mg tablet 5 mg PO DAILY 06/05/20 glipizide 5 mg tablet, extended release 24 hr 5 mg PO DAILY tablet 06/05/20 lisinopril 10 mg tablet 10 mg PO DAILY 06/05/20 omega-3 fatty acids 1,000 mg capsule 1,000 mg PO DAILY 06/05/20 amlodipine 10 mg PO DAILY 02/06/21 apixaban 5 mg PO BID 02/06/21 atenolol 25 mg PO DAILY 02/06/21 azathioprine 100 mg PO DAILY 02/06/21 chlorthalidone 25 mg PO DAILY 02/06/21 zinc sulfate 110 mg (25 mg zinc) tablet 110 mg PO DAILY 02/06/21 furosemide [Lasix] 20 mg PO DAILY #30 tab 02/09/21 levofloxacin 750 mg PO DAILY #3 tab 02/09/21 potassium chloride 20 meq PO DAILY #30 tab 02/09/21 tamsulosin [Flomax] 0.4 mg PO QHS #30 cap 02/09/21 Hospital Course Summary of Care Provided Minutes Spent on Discharge: 35 Hospital Course: Disposition: Patient to discharge home. 1) bacteremia of unclear etiology. No obvious source of infection based off of labs and imaging, although patient did have wheezing in the lung bases bilaterally. Wheezing and shortness of breath significantly improved from admission and was mainly localized to the right upper lung on day of discharge. Initial cultures demonstrated Staph epidermidis and Aerococcus species. Rapid Covid is negative, viral respiratory culture is negative. Repeat urine cultures are negative. Repeat blood cultures were still pending on admission, although given patient's significant symptomatic improvement in overall unremarkable work-up, it was decided that alistair koehler could be discharged home on a 3-day course of levofloxacin to complete 1 week course of antibiotics. Patient is to follow-up with primary care provider within the next 2 weeks. 2) hypokalemia Replaced. Potassium supplementation initiated on discharge. 3) DIANA Resolved, creatinine currently 1.12. 4) hyperbilirubinemia Abdominal ultrasound ordered/pending. 5) A. fib Rate is controlled on atenolol and patient is anticoagulated on Eliquis. Continue home regimen. 6) DM2 Continue home diabetic regimen. 7) ulcerative colitis Continue home Imuran and balsalazide. 8) transient hematochezia Patient self reports melena, not observed throughout admission, occult positive stool was negative in the ED and hemoglobin was stable throughout admission. 9) BPH Flomax initiated on discharge, continue finasteride. Patient seen by Kye Garsia PA-C, under the supervision of Dr. Ham. Physical Exam Narrative Patient is a 70-year-old male comfortably resting in bed, alert and orient x3. Patient reports significant improvement in his shortness of breath and wheezing from admission. Denies development of any new symptoms overnight. Does not appear in acute distress. Const alert, oriented x3 and no apparent distress HEENT normocephalic, head/scalp atraumatic and hearing grossly normal bilaterally Eyes PERRL, EOMs intact bilaterally and conjunctivae normal Neck no lymphadenopathy, supple and no JVD Resp normal respiratory effort, no retractions and no use of accessory muscles Resp Narrative: Wheezes appreciated on auscultation, although significantly improved and mainly localized to the right upper lung. Currently satting 96% on 2 L. Auscultation: wheezes scattered wheezes Cardio regular rate, regular rhythm, no murmurs and no JVD GI normal to inspection, nondistended, normoactive bowel sounds, soft to palpation and non-tender Extremity normal to inspection, full ROM and no clubbing, cyanosis or edema Skin no rashes or lesions noted, no wounds and skin turgor normal Neuro CN's II-XII intact bilaterally Psych affect normal Weight / BMI Weight Weight: 246 lb 14.684 oz Body Mass Index (BMI) 39.8 ABG / Lab / Microbiology Data Result Diagrams: 02/09/21 07:30 02/09/21 07:30 Laboratory: Laboratory Results - last 24 hr 02/08/21 15:56: POC Glucose 254 H 02/08/21 21:36: POC Glucose 332 H 02/09/21 06:32: POC Glucose 281 H 02/09/21 07:30: WBC 10.3, RBC 4.35 L, Hgb 12.5 L, Hct 37.8 L, MCV 86.9, MCH 28.7, MCHC 33.1, RDW Std Deviation 42.8, RDW Coeff of Ayaka 13.3, Plt Count 130 L, MPV 11.9, Immature Gran % (Auto) 1.400 H, Neut % (Auto) 76.4 H, Lymph % (Auto) 12.1 L, Turner % (Auto) 6.0, Eos % (Auto) 3.7, Baso % (Auto) 0.4, Absolute Neuts (auto) 7.9 H, Absolute Lymphs (auto) 1.25, Nucleated RBC % 0 02/09/21 07:30: Sodium 139, Potassium 2.9 L, Chloride 101, Carbon Dioxide 32.0, Anion Gap 6, BUN 24 H, Creatinine 1.12, Estim Creat Clear Calc 54.59, Est GFR (MDRD) Af Amer 83, Est GFR (MDRD) Non-Af 69, BUN/Creatinine Ratio 21.4 H, Glucos e 135 H, Calcium 9.1 02/09/21 11:30: POC Glucose 283 H Microbiology: Microbiology 02/06/21 09:45 Urine, Clean Catch Urine Culture - Final Culture exhibits no growth. 02/06/21 07:45 Stool Stool Occult Blood (JED) - Final D/C Instructions Discharge Diet: No restrictions Weight Bearing Status: Weight bearing as tolerated Call your doctor if you observe: Fever of 101 or Higher, Numbness or Tingling, Shortness of breath, Dizziness, Chest pain, Increased palpitations (irregular heartbeat) and Calf discomfort Please Follow Up With: Primary care provider When: Within the next two weeks. Meaningful Use Info Meaningful Use Diagnoses (Choose all that apply): None applicable Discharge Plan Admission Admit Date/Time: 02/06/21 11:33 Primary Reason for Your Visit: Wheezing. Attending Provider: Moose Ham Primary Care Provider: Wilbur Larkin Discharge Orders/Prescriptions Prescriptions: New furosemide [Lasix] 20 mg tablet 20 mg PO DAILY Qty: 30 RF: 0 levofloxacin 750 mg tablet 750 mg PO DAILY Qty: 3 RF: 0 potassium chloride 20 mEq tablet,ER particles/crystals 20 meq PO DAILY Qty: 30 RF: 0 tamsulosin [Flomax] 0.4 mg capsule 0.4 mg PO QHS Qty: 30 RF: 0 Continued lisinopril 10 mg tablet 10 mg PO DAILY RF: 0 sitagliptin 50 MG tablet 50 mg PO DAILY RF: 0 glipizide 5 mg tablet extended release 24hr 5 mg PO DAILY RF: 0 azathioprine 50 mg tablet 100 mg PO DAILY RF: 0 atenolol 25 mg tablet 25 mg PO DAILY RF: 0 chlorthalidone 25 mg tablet 25 mg PO DAILY RF: 0 amlodipine 10 mg tablet 10 mg PO DAILY RF: 0 apixaban 5 mg tablet 5 mg PO BID RF: 0 zinc sulfate 110 mg (25 mg zinc) tablet 110 mg (25 mg zinc) 110 mg PO DAILY RF: 0 ascorbic acid (vitamin C) 500 mg tablet 500 mg PO DAILY RF: 0 balsalazide 750 mg capsule 2,250 mg PO TID RF: 0 cholecalciferol (vitamin D3) 10 mcg (400 unit) capsule 10 mcg PO DAILY RF: 0 dorzolamide 2 % drops 1 drp OPHTHALMIC BID RF: 0 finasteride 5 mg tablet 5 mg PO DAILY RF: 0 omega-3 fatty acids [Fish Oil Concentrate] 1,000 mg capsule 1,000 mg PO DAILY RF: 0 Referrals / Follow Up: Wilbur Larkin MD [Primary Care Provider] - 02/10/21 11:20 am (appointment previously scheduled) Disposition Disposition (needs filled in before D/C Order can be placed): Home, Self Care Documented by User: Dr. Moose Ham MD 02/09/21 15:51 Providers Date of Admission: 02/06/21 Reason For Visit: BACTEREMIA Medications at Discharge Home Medications sitagliptin 50 mg PO DAILY 06/02/20 ascorbic acid (vitamin C) 500 mg tablet 500 mg PO DAILY 06/05/20 balsalazide 750 mg capsule 2,250 mg PO TID cap 06/05/20 cholecalciferol (vitamin D3) 10 mcg (400 unit) capsule 10 mcg PO DAILY 06/05/20 dorzolamide 2 % eye drops 1 drp OPHTHALMIC BID ml 06/05/20 finasteride 5 mg tablet 5 mg PO DAILY 06/05/20 glipizide 5 mg tablet, extended release 24 hr 5 mg PO DAILY tablet 06/05/20 lisinopril 10 mg tablet 10 mg PO DAILY 06/05/20 omega-3 fatty acids 1,000 mg capsule 1,000 mg PO DAILY 06/05/20 amlodipine 10 mg PO DAILY 02/06/21 apixaban 5 mg PO BID 02/06/21 atenolol 25 mg PO DAILY 02/06/21 azathioprine 100 mg PO DAILY 02/06/21 chlorthalidone 25 mg PO DAILY 02/06/21 zinc sulfate 110 mg (25 mg zinc) tablet 110 mg PO DAILY 02/06/21 furosemide [Lasix] 20 mg PO DAILY #30 tab 02/09/21 levofloxacin 750 mg PO DAILY #3 tab 02/09/21 potassium chloride 20 meq PO DAILY #30 tab 02/09/21 tamsulosin [Flomax] 0.4 mg PO QHS #30 cap 02/09/21 Hospital Course Summary of Care Provided Hospital Course: This patient was seen in conjunction with MADINA Blanchard. I have independently interviewed and examined the patient and reviewed pertinent history, examination findings, laboratory and plan of management. I have reviewed the note and agree with the documented findings with the few additional points. In brief, patient is admitted for bacteremia, which showed gram-positive cocci possible skin contamination. NAAT method did not show staph Enterococcus strep Listeria or macular resistance. Presumptive micrococcus species. Urine culture shows staph epidermidis/Aerococcus less than 1000/m probably has gotten antibiotic prior to culture, partially treated UTI. Patient is discharged on Levaquin to complete of total of 7 days of antibiotic. Patient has history of CHF, chronic HFpEF. Chest x-ray and CT chest did not show any acute cardiopulmonary abnormality. Last echo on 06/16/2022 1 shows LA mildly enlarged, right atrium mildly enlarged, EF 60%. Advised to continue incentive spirometry. Patient is ambulatory in home and in the community and requires home oxygen with portability. Rest of comorbidities as documented above I have discussed my assessment with MADINA Blanchard and orders have been reviewed. Discharge medication reconciliation done. Discharge follow-up instructions completed. Discharge process discussed with the patient and all questions were answered to patient's satisfaction. Discharged home on oxygen. Total time spent, exact 35 minutes on discharge meds reconciliation, examination, coordination of care with nurses and ancillary staff, review of imaging and blood test and discussion with the patient on follow-up instructions Physical Exam Narrative Seen and examined. Patient burning micturition has resolved. He had significant dysuria before admission. Physical exam General: Alert, Oriented x3, Cooperative HEENT: Atraumatic, PERRLA, EOMI, Normocephalic Oral: No Gingival or Mucosal Lesions/ Ulcerations Neck: Supple, No JVD, Negative Carotid Bruits Lungs: Air entry diminished in bilateral lung bases. No crepitation/rhonchi. Requires 3 L of oxygen. Cardiovascular: Regular rate, Regular Rhythm, Normal S1, Normal S2, No murmurs Abdomen: Bowel Sounds Present, Soft, Non Tender, Non-Distended : No renal angle tenderness. No suprapubic tenderness. Extremities: No edema, Capillary Refill Less than 3 Seconds Skin: No rashes, No breakdown Musculoskeletal: No Tenderness to Palpation of Joints or Extremities Neurological: Cranial nerves II-XII grossly intact, DTR 2+/4 and Symmetrical, Neuro grossly intact Psych/Mental Status: Normal Affect, Appropriate. ABG / Lab / Microbiology Data Result Diagrams: 02/09/21 07:30 02/09/21 07:30 Discharge Plan Admission Admit Date/Time: 02/06/21 11:33 Primary Reason for Your Visit: Wheezing. Attending Provider: Moose Ham Primary Care Provider: Wilbur Larkin Discharge Orders/Prescriptions Prescriptions: New furosemide [Lasix] 20 mg tablet 20 mg PO DAILY Qty: 30 RF: 0 levofloxacin 750 mg tablet 750 mg PO DAILY Qty: 3 RF: 0 potassium chloride 20 mEq tablet,ER particles/crystals 20 meq PO DAILY Qty: 30 RF: 0 tamsulosin [Flomax] 0.4 mg capsule 0.4 mg PO QHS Qty: 30 RF: 0 Continued lisinopril 10 mg tablet 10 mg PO DAILY RF: 0 sitagliptin 50 MG tablet 50 mg PO DAILY RF: 0 glipizide 5 mg tablet extended release 24hr 5 mg PO DAILY RF: 0 azathioprine 50 mg tablet 100 mg PO DAILY RF: 0 atenolol 25 mg tablet 25 mg PO DAILY RF: 0 chlorthalidone 25 mg tablet 25 mg PO DAILY RF: 0 amlodipine 10 mg tablet 10 mg PO DAILY RF: 0 apixaban 5 mg tablet 5 mg PO BID RF: 0 zinc sulfate 110 mg (25 mg zinc) tablet 110 mg (25 mg zinc) 110 mg PO DAILY RF: 0 ascorbic acid (vitamin C) 500 mg tablet 500 mg PO DAILY RF: 0 balsalazide 750 mg capsule 2,250 mg PO TID RF: 0 cholecalciferol (vitamin D3) 10 mcg (400 unit) capsule 10 mcg PO DAILY RF: 0 dorzolamide 2 % drops 1 drp OPHTHALMIC BID RF: 0 finasteride 5 mg tablet 5 mg PO DAILY RF: 0 omega-3 fatty acids [Fish Oil Concentrate] 1,000 mg capsule 1,000 mg PO DAILY RF: 0 Referrals / Follow Up: Wilbur Larkin MD [Primary Care Provider] - 02/10/21 11:20 am (appointment previously scheduled) Disposition Disposition (needs filled in before D/C Order can be placed): Home, Self Care Charges/Coding Visit Charges Inpatient E&M: 24047 Disch Hosp
[2021-02-09 14:45] VITALS: BP 130/87; PULSE 90; RESP 18; TEMP 36.7; O2SAT 92
--- NOTE | 2021-02-09 14:52 | CASEMGMT ---
Addendum entered by Sharlene Young 02/09/21 15:43: Therapy recommends no further therapy for pt at discharge. Paty CONTRERAS CM Addendum entered by Sharlene Young 02/09/21 15:12: Fay at [facility] updated on referral, voices understanding. Pt/ provided script for shower chair. Paty CONTRERAS CM Original Note: Pt qualifies for 3L nc home oxygen with exertion and states no preference for DME company. Pt/ also requesting WW and shower chair at discharge. WW script to be faxed to [facility] with home oxygen script. Pt/ aware that Medicare does not generally cover shower chairs. still wants script but states she may be able to get from somewhere else. Script provided. Pt/ updated on home oxygen and process, voice understanding. Pt/ voices no further questions/concerns/needs with going home at discharge. Paty CONTRERAS CM
== END 2021-02-09 16:00 | disposition home or self-care (01) | DRG 872 ==
LOC: ED 07:34 → PCU 11:56
PROVIDERS: Physician Assistant; Emergency Provider Student in an Organized Health Care Education/Training Program; PCP Family Medicine; Visit Provider Internal Medicine
DX: R78.81 Bacteremia (principal); N17.9 Acute kidney failure, unspecified; K92.1 Melena; I50.32 Chronic diastolic (congestive) heart failure; R17 Unspecified jaundice; K51.911 Ulcerative colitis, unspecified with rectal bleeding; I11.0 Hypertensive heart disease with heart failure; E87.6 Hypokalemia; I48.91 Unspecified atrial fibrillation; N40.0 Benign prostatic hyperplasia without lower urinary tract symptoms; E11.65 Type 2 diabetes mellitus with hyperglycemia; M19.90 Unspecified osteoarthritis, unspecified site; Z90.5 Acquired absence of kidney; Z79.01 Long term (current) use of anticoagulants; Z79.84 Long term (current) use of oral hypoglycemic drugs; Z79.899 Other long term (current) drug therapy; Z87.891 Personal history of nicotine dependence
CPT/HCPCS: 36415; 70450; 71045; 71250; 76705; 80048; 80053; 80202; 81001; 82274; 82962; 83605; 83880; 84436; 84443; 84481; 84484; 85025; 85610; 85730; 87040; 87077; 87086; 87088; 87149; 87186; 87426; 87633; 87635; 93005; 96361; 96365; 97162; 99284; 99285; J7030; J7040; J7050; U0005; A4216; J0696; U0003

== ENCOUNTER 2021-03-17 14:11 | Outpatient (CLI) | payer MEDICARE, OTHER, SELFPAY ==
[2021-03-17 18:11] LABS: Absolute Lymphocyte Count 1.09 X10^3/uL (0.83-4.51); Basophil# 0.03 X10^3/uL; Basophil% 0.3 % (0-1); Eosinophil# 0.43 X10^3/uL; Eosinophils% 4.6 % (0-5); Hematocrit 33.2 % (40-54); Lymphocyte # 1.09 X10^3/ul (0.83-4.51); Lymphocyte % 11.7 % (19-41); Mean Corp Hgb Conc 30.1 g/dL (32-36); Mean Corpuscular Hgb 28.4 pg (27.0-32.0); Mean Corpuscular Volume 94.3 fL (80-94); Mean Platelet Vol. 10.3 fl (6.2-12.0); Monocyte% 7.5 % (0-10); NRBC Flagged by Analyzer 0 % (0-5); Neutrophil % 75.1 % (47-70); Platelet Count 367 K/mm3 (150-450); RBC Distribution Width CV 14.7 % (11.6-14.6); RBC Distribution Width SD 50.5 fl (35.1-43.9); Red Blood Count 3.52 M/mm3 (4.6-6.2); White Blood Count 9.3 K/mm3 (4.4-11.0)
[2021-03-17 18:23] LABS: AST(SGOT) 34 U/L (15-37); Alanine Aminotransfer ALT/SGPT 24 U/L (16-61); Albumin, Serum 2.5 g/dL (3.2-5.0); Alkaline Phosphatase 290 U/L (45-117); Bilirubin, Direct 0.19 mg/dL (0.00-0.30); Globulin 5.7 g/dL (2.2-4.2); Protein, Total 8.2 g/dL (6.4-8.2)
== END 2021-03-17 23:59 | disposition short-term general hospital (02) ==
PROVIDERS: PCP Family Medicine; Referring Provider Internal Medicine Gastroenterology; Visit Provider Internal Medicine Gastroenterology
DX: K51.90 Ulcerative colitis, unspecified, without complications (principal)
CPT/HCPCS: 36415; 80076; 85025

== ENCOUNTER 2021-03-31 12:15 | Outpatient (CLI) | payer MEDICARE, OTHER, SELFPAY | END 2021-03-31 23:59 | disposition short-term general hospital (02) | LOC: LAB 12:17 | PROVIDERS: PCP Family Medicine; Referring Provider Urology; Visit Provider Urology | DX: C61 Malignant neoplasm of prostate (principal) | CPT/HCPCS: 36415; 84153 ==

== ENCOUNTER 2021-04-08 13:37 | Outpatient (CLI) | payer MEDICARE, OTHER, SELFPAY ==
[2021-04-08 13:45] VITALS: PULSE 101; PULSE 103; PULSE 104; PULSE 81; PULSE 82; PULSE 91; PULSE 94; O2SAT 100; O2SAT 93; O2SAT 94; O2SAT 96
--- NOTE | 2021-04-09 12:26 | WT_ITS ---
PSN 6 Minute Walk Test 6 Minute Walk Test 6 Minute Walk Test: 6 Minute Walk Test PSN:6-Minute Walk Test Start: 04/08/21 14:01 Freq: Status: Active Protocol: RESP.6MINW Document 04/08/21 13:45 [facility] (Rec: 04/08/21 14:05 [facility] [id number]) 6 Minute Walk Test Date Performed 04/08/21 Time Performed 13:45 Height 5 ft 6 in Weight: 104.326 kg Weight in Pounds 230.[address]: Terrance Fernandez Assistive device used: None Pre-test Oxygen Delivery Method Room Air Pulse Ox (%) 94 Pulse Rate (60-100 beats/min) 82 Dyspnea Sharath Scale (0-10) 0 Exertion Sharath Scale (6-20) 6 1st minute Oxygen Delivery Method Room Air Pulse Ox (%) 93 Pulse Rate (60-100 beats/min) 104 H 2nd minute Oxygen Delivery Method Room Air Pulse Rate (60-100 beats/min) 91 Dyspnea Sharath Scale (0-10) 94 3rd minute Oxygen Delivery Method Room Air Pulse Ox (%) 100 4th minute Oxygen Delivery Method Room Air Pulse Ox (%) 93 Pulse Rate (60-100 beats/min) 94 5th minute Oxygen Delivery Method Room Air Pulse Ox (%) 93 Pulse Rate (60-100 beats/min) 101 H 6th minute Oxygen Delivery Method Room Air Pulse Ox (%) 93 Pulse Rate (60-100 beats/min) 103 H Dyspnea Sharath Scale (0-10) 2 Exertion Sharath Scale (6-20) 11 Post-test Oxygen Delivery Method Room Air Pulse Ox (%) 96 Pulse Rate (60-100 beats/min) 81 Full Laps Walked 14 Partial Lap, Number of Tiles Walked 21 Total Distance Walked (ft) 847 Interpretation Interpretation: The patient ambulated 847 feet over the course of 6 minutes beginning on room air without assistive devices. Pretesting oxygen saturation was noted to be 94% on room air. With ambulation, the sai oxygen saturation was 91%. There was no significant exertional oxygen desaturation. Recommendations Recommendations: There is no indication for the use of supplemental oxygen at this time.
== END 2021-04-08 23:59 | disposition home or self-care (01) ==
LOC: PSN 13:38
PROVIDERS: PCP Family Medicine; Referring Provider Internal Medicine Critical Care Medicine; Visit Provider Internal Medicine Critical Care Medicine
DX: R09.02 Hypoxemia (principal)
CPT/HCPCS: 94618

== ENCOUNTER 2021-04-27 11:55 | Outpatient (CLI) | payer MEDICARE, OTHER, SELFPAY ==
[2021-04-27 15:20] LABS: Absolute Lymphocyte Count 1.92 X10^3/uL (0.83-4.51); Basophil# 0.04 X10^3/uL; Basophil% 0.5 % (0-1); Eosinophil# 0.21 X10^3/uL; Eosinophils% 2.6 % (0-5); Hematocrit 41.4 % (40-54); Hemoglobin 13.3 g/dL (13.0-16.5); Lymphocyte # 1.92 X10^3/ul (0.83-4.51); Lymphocyte % 24.2 % (19-41); Mean Corp Hgb Conc 32.1 g/dL (32-36); Mean Corpuscular Hgb 29.4 pg (27.0-32.0); Mean Corpuscular Volume 91.4 fL (80-94); Mean Platelet Vol. 11.3 fl (6.2-12.0); Monocyte# 0.74 X10^3/uL; Monocyte% 9.3 % (0-10); NRBC Flagged by Analyzer 0 % (0-5); Neutrophil # 5.02 X10^3/uL (2.7-7.7); Neutrophil % 63.1 % (47-70); Platelet Count 218 K/mm3 (150-450); RBC Distribution Width CV 13.8 % (11.6-14.6); RBC Distribution Width SD 46.5 fl (35.1-43.9); Red Blood Count 4.53 M/mm3 (4.6-6.2)
[2021-04-27 15:52] LABS: AST(SGOT) 16 U/L (15-37); Alanine Aminotransfer ALT/SGPT 16 U/L (16-61); Albumin, Serum 3.4 g/dL (3.2-5.0); Alkaline Phosphatase 72 U/L (45-117); Bilirubin, Direct 0.15 mg/dL (0.00-0.30); Globulin 4.6 g/dL (2.2-4.2)
== END 2021-04-27 23:59 | disposition home or self-care (01) ==
LOC: MTLAB 11:57
PROVIDERS: PCP Family Medicine; Referring Provider Internal Medicine Gastroenterology; Visit Provider Internal Medicine Gastroenterology
DX: K51.90 Ulcerative colitis, unspecified, without complications (principal)
CPT/HCPCS: 36415; 80076; 85025

== ENCOUNTER → 2021-07-28 | Outpatient (CLI) | payer MEDICARE, OTHER, SELFPAY ==
[2021-07-28 14:00] LABS: Protein, Urine (Random) 8.9 mg/dL (<11.9); Protein:Creat Ratio 139 mg/g CRE (0-200)
[2021-07-28 14:07] LABS: Anion Gap 6 (5-15); BUN 29 mg/dL (7-18); BUN/Creat Ratio 18.4 RATIO (10-20); Calcium,Total 9.2 mg/dL (8.5-10.1); Chloride 108 mmol/L (98-107); Creatinine, Serum 1.58 mg/dL (0.70-1.30); EST Glomerular Filtration Rate 46 mL/min (>60); Est Glom Filt Rate - Afr Amer 56 mL/min (>60); Glucose 95 mg/dL (74-106); Potassium 3.7 mmol/L (3.5-5.1); Sodium Level 140 mmol/L (136-145)
== END | disposition home or self-care (01) ==
LOC: LAB 12:37
PROVIDERS: PCP Family Medicine; Visit Provider Internal Medicine Nephrology
DX: N18.31 Chronic kidney disease, stage 3a (principal)
CPT/HCPCS: 36415; 80048; 82570; 84156

== ENCOUNTER → 2021-08-19 | Outpatient (CLI) | payer MEDICARE, OTHER, SELFPAY | END | disposition home or self-care (01) | LOC: SL 13:35 | PROVIDERS: Referring Provider Nurse Practitioner Acute Care; Visit Provider Nurse Practitioner Acute Care | DX: G47.33 Obstructive sleep apnea (adult) (pediatric) (principal) | CPT/HCPCS: 98960; G0463 ==

== ENCOUNTER → 2021-09-13 | Outpatient (CLI) | payer MEDICARE, OTHER, SELFPAY ==
[2021-09-13 17:28] LABS: Absolute Lymphocyte Count 1.35 X10^3/uL (0.83-4.51); Absolute Neutrophil Count 4.6 X10^3/uL (2.0-7.7); Basophil# 0.03 X10^3/uL; Basophil% 0.4 % (0-1); Eosinophil# 0.24 X10^3/uL; Eosinophils% 3.5 % (0-5); Hematocrit 41.8 % (40-54); Lymphocyte # 1.35 X10^3/ul (0.83-4.51); Lymphocyte % 19.6 % (19-41); Mean Corp Hgb Conc 33.5 g/dL (32-36); Mean Corpuscular Hgb 30.1 pg (27.0-32.0); Mean Corpuscular Volume 89.9 fL (80-94); Mean Platelet Vol. 11.4 fl (6.2-12.0); Monocyte# 0.62 X10^3/uL; NRBC Flagged by Analyzer 0 % (0-5); Neutrophil # 4.63 X10^3/uL (2.7-7.7); Neutrophil % 67.2 % (47-70); Platelet Count 188 K/mm3 (150-450); RBC Distribution Width CV 13.7 % (11.6-14.6); RBC Distribution Width SD 44.5 fl (35.1-43.9); Red Blood Count 4.65 M/mm3 (4.6-6.2); White Blood Count 6.9 K/mm3 (4.4-11.0)
== END | disposition home or self-care (01) ==
LOC: MTLAB 14:22
PROVIDERS: Referring Provider Internal Medicine Gastroenterology; Visit Provider Internal Medicine Gastroenterology
DX: K51.90 Ulcerative colitis, unspecified, without complications (principal)
CPT/HCPCS: 36415; 85025

== ENCOUNTER → 2021-10-15 | Outpatient (CLI) | payer MEDICARE, OTHER, SELFPAY ==
[2021-10-15 13:57] LABS: Anion Gap 5 (5-15); BUN 25 mg/dL (7-18); BUN/Creat Ratio 15.4 RATIO (10-20); Calcium,Total 9.3 mg/dL (8.5-10.1); Chloride 107 mmol/L (98-107); Creatinine, Serum 1.62 mg/dL (0.70-1.30); EST Glomerular Filtration Rate 45 mL/min (>60); Est Glom Filt Rate - Afr Amer 54 mL/min (>60); Glucose 255 mg/dL (74-106); PSA,Total- Diagnostic 5.33 ng/mL (0.0-4.0); Sodium Level 141 mmol/L (136-145)
== END | disposition home or self-care (01) ==
PROVIDERS: Referring Provider Urology; Visit Provider Urology
DX: C61 Malignant neoplasm of prostate (principal)
CPT/HCPCS: 36415; 80048; 84153

== ENCOUNTER → 2021-11-02 | Outpatient (CLI) | payer MEDICARE, OTHER, SELFPAY | END | disposition home or self-care (01) | LOC: SL 19:52 | PROVIDERS: Visit Provider Internal Medicine Critical Care Medicine | DX: G47.31 Primary central sleep apnea (principal) | CPT/HCPCS: 95811 ==

== ENCOUNTER 2021-11-24 14:35 | Observation (INO) | payer MEDICARE, OTHER, SELFPAY ==
[2021-11-19 13:21] LABS: Anion Gap 4 (5-15); BUN 22 mg/dL (7-18); BUN/Creat Ratio 15.4 RATIO (10-20); Calcium,Total 8.9 mg/dL (8.5-10.1); Chloride 106 mmol/L (98-107); Creatinine, Serum 1.43 mg/dL (0.70-1.30); EST Glomerular Filtration Rate 52 mL/min (>60); Est Glom Filt Rate - Afr Amer 63 mL/min (>60); Glucose 158 mg/dL (74-106); Potassium 4.3 mmol/L (3.5-5.1); Sodium Level 139 mmol/L (136-145)
[2021-11-19 13:30] LABS: Hemoglobin A1c 6.7 % (3.8-5.6)
[2021-11-24] VITALS (15 sets, daily range): BP systolic 133–202; BP diastolic 67–99; PULSE 45–66; RESP 16–20; TEMP 36.3–36.9; O2SAT 93–98; BMI 39.8; BMI 40.6
[2021-11-24] MEDS: Lactated Ringers 1,000 ML 15 ML IV ×2 (10:50→13:15)
[2021-11-24 11:31] LABS: Bedside Glucose 118 mg/dL (74-106)
[2021-11-24] MEDS: Cefazolin 2 GM in 0.9% Normal Saline 100 ML IV (13:12)
--- NOTE | 2021-11-24 13:15 | PROS_PTH ---
PATIENT: DAPHNE BARR LOC: [facility] U#:[id number] AGE/SX: 71/M ROOM: [facility] RE11/24/[address]: Dr. Binh Schulz MD : 1950 BED: 1 DIS: 11/25/2021 SPEC #: [id number] RECD: 11/24/21 15:09 STATUS: REECE TORRES #: [id number] ARMIDA: 11/24/21 13:[address]: Binh Schulz DEPT: SURGICAL PATHOLOGY RECD BY: Polly Kenney ENTERED: 11/25/21 08:22 SP TYPE: TURP OTHR DR: Dr. Lencho Angel, DO Tissues: Prostate, NOS Procedures: Surgery Specimen Level IV HEADER OPERATION: Cysto, TUR prostate, Olympus PRE-OP DIAGNOSIS: BPH with obstruction TISSUE SUBMITTED: Prostate tissue MICROSCOPIC DIAGNOSIS Prostate, transurethral resection: Benign nodular hyperplasia, glandular and stromal types. Chronic inflammation. AM:missy 11/26/2021 MICROSCOPIC DESCRIPTION Slides are reviewed. GROSS DESCRIPTION Received is one container labeled with the patient's name and designated prostate tissue. The specimen consists of multiple irregular fragments of pink-hernandez, rubbery, soft tissue that in aggregate weigh 9 gm and measure in aggregate 5 x 4.5 x 2 cm. The entire specimen is submitted in eight cassettes. / SJ:missy 11/25/2021 TC:3 CPT: 21072
--- NOTE | 2021-11-24 14:36 | PCM.HP.STD ---
HPI - General General Date of Service: 11/24/21 HPI Narrative DAPHNE BARR, is a 71 M who presents with BPH and obstruction plan to proceed with a TURP to relieve obstruction [facility] Medical History Arthritis Atrial fibrillation BiPAP (biphasic positive airway pressure) dependence Cancer Cardiology follow-up encounter Depression Diabetes Dietary restriction Essential hypertension Excessive bleeding Hepatic cyst History of CHF (congestive heart failure) History of echocardiogram History of edema History of renal disease History of stress test Hypertension Injury of head and neck Malignant neoplasm of left kidney Non-smoker Osteoarthritis Persistent atrial fibrillation Renal mass Seizures Sleep apnea Type 2 diabetes mellitus Ulcerative colitis Wears dentures Wears glasses Home Medications sitagliptin 50 mg tablet (Januvia) 50 mg PO DAILY diabetes 06/02/20 [History Last Taken 02/04/21 09:00] ascorbic acid (vitamin C) 500 mg tablet 500 mg PO DAILY health maintenance 06/05/20 [History Last Taken 02/04/21 09:00] balsalazide 750 mg capsule 2,250 mg PO TID colitis 06/05/20 [History Last Taken 02/04/21 09:00] cholecalciferol (vitamin D3) 10 mcg (400 unit) capsule 10 mcg PO DAILY vitamin 06/05/20 [History Last Taken Unknown] dorzolamide 2 % eye drops 1 drp ophthalmic (eye) BID eyes 06/05/20 [History Last Taken 02/04/21 21:00] omega-3 fatty acids 1,000 mg capsule (Fish Oil Concentrate) 1,000 mg PO DAILY health maintenance 06/05/20 [History Last Taken 02/04/21] apixaban 5 mg tablet (Eliquis) 5 mg PO BID anticoagulant 02/06/21 [History Last Taken 11/20/21] azathioprine 50 mg tablet 50 mg PO BID COLITIS 02/06/21 [History Last Taken 02/04/21] zinc sulfate 110 mg PO DAILY health maintenance 02/06/21 [History Last Taken 02/04/21 09:00] bumetanide 1 mg tablet 1.5 mg PO DAILY 11/17/21 [History Last Taken Unknown] dandelion root 525 mg capsule 525 mg PO DAILY 11/17/21 [History Last Taken Unknown] dha-epa-vit A-vit O-yqqahdy-HN capsule 1 cap PO DAILY 11/17/21 [History Last Taken Unknown] empagliflozin 10 mg tablet (Jardiance) 10 mg PO DAILY 11/17/21 [History Last Taken Unknown] multivitamin 1 tab PO DAILY 11/17/21 [History Last Taken Unknown] vitamin B complex 1 tab PO DAILY 11/17/21 [History Last Taken Unknown] ciprofloxacin HCl 500 mg tablet (Cipro) 500 mg PO BID #10 tabs 11/24/21 [Rx Last Taken Unknown] Allergy/AdvReac Type Severity Reaction Status Date / Time furosemide [From Lasix] AdvReac Rash Verified 11/17/21 09:44 hydromorphone HCl AdvReac Shortness Verified 11/17/21 09:44 [From Dilaudid] of breath Family History Father Congestive heart failure Diabetes CVA (cerebral vascular accident) Brother Myocardial infarction Sister Parkinson disease Surgical History Cataract extraction status History of cholecystectomy History of partial nephrectomy (~11/26/14) Social History Smoking Status: Former smoker alcohol intake: former substance use type: does not use caffeine: Yes Type: coffee Number of servings: 1 Vital Signs Vital Signs Vital Signs: 11/24/21 11:06 11/24/21 11:06 Temperature 98.2 F Temperature Source Temporal Pulse Rate 49 L Respiratory Rate 16 Respiratory Pattern Normal Blood Pressure 134/91 H Blood Pressure Mean 105 Blood Pressure Source Monitor Blood Pressure Position Semi-Fowlers Blood Pressure Location Left Arm Pulse Ox 94 Oxygen Delivery Method Room Air Weight Weight: 112 kg Body Mass Index (BMI) 39.8 Results Lab / Micro Data Result Diagrams: 11/19/21 12:28 Labs: Laboratory Results - last 24 hr 11/24/21 11:01: POC Glucose 118 H
--- NOTE | 2021-11-24 14:37 | OP.PCM_ITS ---
Report of Operation Date of Procedure: 11/24/21 Pre-Operative Diagnosis: BPH with obstruction Post-Operative Diagnosis: Same Surgery/Procedure Performed:: Transurethral resection of prostate Description of Surgical Findings:: In the preoperative setting I discussed with the patient how the surgery would be done with expect afterwards. We discussed how a prostate resection is done and we discussed the risk of the surgery including, bleeding, infection, retrograde ejaculation, changes with ejaculation or intercourse,. We discussed the possibility that the resection of the prostate may not alleviate his urinary symptoms. We discussed the small risk of developing scar tissue along the urethral channel and strictures. We also discussed the chance of the prostate could grow back and he may need further surgery or treatment in the future for prostate problems. Patient was taken back to the operating room, timeout procedure was performed, he was identified and marked and placed on the operating room table. He underwent general anesthesia. He was placed in dorsolithotomy position. Penis and testicles were prepped and draped in usual sterile fashion. Went into the bladder using the visual obturator with a resectoscope. Once inside the bladder identified the right and left ureteral orifice. I then identified the prostate and the anatomy of the prostate. I marked out the area of the sphincter and the verumontanum was identified. I then proceeded with the prostate resection first resected the median lobe. And then resected the right lobe of the prostate. Then to resect the left lobe of the prostate. I then resected the apical tissue of the prostate. This was a complete resection of all obstructive tissue to improve voiding and relieve obstruction. I then made sure that there was no injury to the sphincter or the verumontanum was still intact. At the end of the resection all the chips were Ellik out of the bladder. I then identified the left and right ureteral orifice and these were confirmed to be in good position and effluxing and not injured. The resectoscope was removed, a 22 Indonesian catheter was placed into the bladder on continuous irrigation. And the urine was fairly light pink color and draining normally. He was taken back to the PACU in good condition. CPT 00821 Surgeon: Binh Schulz Type of Anesthesia: General Drains: Three-way White Admit VTE Documentation VTE Present on Admission: No VTE Mechan Device Prophylaxis: SCD's VTE Pharm Prophylaxis ordered?: No
--- NOTE | 2021-11-24 14:37 | DCINST_ITS ---
Discharge Instructions Diet Discharge Diet: No restrictions Dressing / Incision Call your doctor if your incision/area has: Continuous Slow Oozing, Increased Pain/ Swelling, Increased Redness and Foul Smelling Discharge Call your doctor if you observe: Fever of 101 or Higher, Numbness or Tingling, Shortness of breath, Dizziness, Calf discomfort and Uncontrolled pain Follow Up Care Please Follow Up With: Binh Schulz MD When: 2 weeks for follow-up Test Results: Test results from this visit will be discussed in further detail at your follow- up appointment, if applicable. Discharge Plan Admission Primary Reason for Your Visit: TURP Attending Provider: Binh Schulz Primary Care Provider: Lencho Angel Instructions Patient Instructions: [facility] Home Recovery Discharge Orders/Prescriptions Prescriptions: New ciprofloxacin HCl [Cipro] 500 mg tablet 500 mg PO BID Qty: 10 0RF Continued Januvia 50 MG tablet 50 mg PO DAILY azathioprine 50 mg tablet 50 mg PO BID zinc sulfate 110 mg (25 mg zinc) tablet 110 mg (25 mg zinc) 110 mg PO DAILY multivitamin Tablet 1 tab PO DAILY bumetanide 1 mg tablet 1.5 mg PO DAILY Label Comments: TAKE 1 & 1/2 (ONE & ONE-HALF) TABLETS BY MOUTH ONCE DAILY vitamin B complex Tablet 1 tab PO DAILY dha-epa-vit A-vit [id number]-kvzmzwm-IG Capsule 1 cap PO DAILY Jardiance 10 mg tablet 10 mg PO DAILY Label Comments: TAKE 1 TABLET BY MOUTH IN THE MORNING dandelion root 525 mg Capsule 525 mg PO DAILY ascorbic acid (vitamin C) 500 mg tablet 500 mg PO DAILY balsalazide 750 mg capsule 2,250 mg PO TID cholecalciferol (vitamin D3) 10 mcg (400 unit) capsule 10 mcg PO DAILY dorzolamide 2 % drops 1 drp OPHTHALMIC BID omega-3 fatty acids [Fish Oil Concentrate] 1,000 mg capsule 1,000 mg PO DAILY Held Eliquis 5 mg tablet 5 mg PO BID Hold Instructions: Resume on 12/08/21. Label Comments: LAST DOSE 11/20/21 Discontinued tamsulosin [Flomax] 0.4 mg capsule 0.4 mg PO QHS Qty: 30 0RF finasteride 5 mg tablet 5 mg PO DAILY Referrals / Follow Up: Binh Schulz MD [Med Staff - Active Staff] - Angel,Lencho, DO [Primary Care Provider] - Disposition Disposition (needs filled in before D/C Order can be placed): Home, Self Care
[2021-11-24 15:11] LABS: Bedside Glucose 104 mg/dL (74-106)
[2021-11-24] MEDS: 0.9% Normal Saline 1,000 ML 125 ML IV (18:10)
[2021-11-24] MEDS: Acetaminophen 325 MG Tablet PO (18:59)
[2021-11-24] MEDS: Docusate Sodium 100 MG Capsule 200 MG PO (19:36)
[2021-11-24] MEDS: Dorzolamide 2% 10ml Bottle 1 DRP OPHTHALMIC (19:37)
[2021-11-24] MEDS: Ciprofloxacin 400 MG/200 ML BAG 200 MG IV (21:03)
[2021-11-24] MEDS: HYDROcodone Bitartrate/Apap 5/325 Tablet PO (21:20)
--- NOTE | 2021-11-24 22:11 | NURSING ---
Pt out of bed and into chair. Pt tolerated well
[2021-11-25 01:23] VITALS: BP 148/61; PULSE 60; RESP 18; TEMP 36.8; O2SAT 94
[2021-11-25] MEDS: 0.9% Normal Saline 1,000 ML 125 ML IV (02:59)
[2021-11-25 05:38] VITALS: BP 139/59; PULSE 87; RESP 17; TEMP 37.1; O2SAT 95
[2021-11-25 05:40] VITALS: BP 139/59; PULSE 87; RESP 17; TEMP 37.1; O2SAT 95
--- NOTE | 2021-11-25 07:47 | PCM.PN.GU ---
Subjective Subjective s/p turp d/c mott home after voids Objective Data Objective Data Vital Signs: Vital Signs Temp Pulse Resp BP Pulse Ox O2 Del Method O2 Flow Rate 98.7 F 87 17 139/59 H 95 Room Air 2 11/25/21 05:40 11/25/21 05:40 11/25/21 05:40 11/25/21 05:40 11/25/21 05:40 11/25/21 05:40 11/24/21 18:23 Oxygen Flow Rate (L/min) 2 Oxygen Delivery Method Room Air Weight: 114.305 kg Body Mass Index (BMI) 40.6 Intake & Output: Intake and Output for Last 24 Hours 11/23/21 11/24/21 11/25/21 23:59 23:59 23:59 Intake Total 1947.25 / 1947.25 1330 / 1330 Output Total 1400 / 1400 1900 / 1900 Balance 547.25 / 547.25 -570 / -570 Lab / Micro Data Result Diagrams: 11/19/21 12:28 Labs: Laboratory Results - last 24 hr 11/24/21 11:01: POC Glucose 118 H 11/24/21 14:49: POC Glucose 104
[2021-11-25 08:07] VITALS: BP 170/70; PULSE 52; RESP 18; TEMP 36.8; O2SAT 95
[2021-11-25] MEDS: Dorzolamide 2% 10ml Bottle 1 DRP OPHTHALMIC (08:42)
[2021-11-25] MEDS: Bumetanide 0.5 MG Tablet 1.5 MG PO (08:43)
[2021-11-25] MEDS: LINAGLIPTIN 5 MG TABLET PO (08:43)
[2021-11-25] MEDS: Empagliflozin 10 MG Tablet PO (08:43)
[2021-11-25] MEDS: azaTHIOprine 50 MG Tablet PO (08:44)
[2021-11-25] MEDS: Ciprofloxacin 400 MG/200 ML BAG 200 MG IV (10:45)
[2021-11-25] MEDS: FLU VACC QS2022-23(6MOS UP)/PF 60 MCG/0.5 ML SYRINGE IM (10:46)
[2021-11-25 11:38] VITALS: BP 149/61; PULSE 54; RESP 18; TEMP 36.2; O2SAT 95
--- NOTE | 2021-11-25 12:15 | NURSING ---
Pt still unable to void much, has about 50 ml zhang blood. Bladder scan shows 447 residual in bladder.
== END 2021-11-25 07:47 | disposition home or self-care (01) ==
LOC: SDC 16:50 → PCU 16:50
PROVIDERS: Anesthesiology; Admitting Provider Urology; Referring Provider Urology; Visit Provider Urology
PROC: (CPT 52601; principal; 2021-11-24 13:05)
DX: N40.1 Benign prostatic hyperplasia with lower urinary tract symptoms (principal); I11.0 Hypertensive heart disease with heart failure; I50.9 Heart failure, unspecified; I48.19 Other persistent atrial fibrillation; I48.91 Unspecified atrial fibrillation; E11.9 Type 2 diabetes mellitus without complications; Z79.84 Long term (current) use of oral hypoglycemic drugs; Z79.01 Long term (current) use of anticoagulants; Z87.891 Personal history of nicotine dependence; Z85.528 Personal history of other malignant neoplasm of kidney; Z85.46 Personal history of malignant neoplasm of prostate; Z79.899 Other long term (current) drug therapy; Z23 Encounter for immunization; N13.8 Other obstructive and reflux uropathy; M19.90 Unspecified osteoarthritis, unspecified site; F32.A Depression, unspecified; G47.31 Primary central sleep apnea
CPT/HCPCS: 52601; 00914; 36415; 51702; 80048; 82962; 83036; 88305; 96361; 96365; 96366; 99218; G0008; J7030; J7120; 90686; G0378; J0744; J2405

== ENCOUNTER 2021-11-27 11:32 | Emergency (ER) | payer MEDICARE, OTHER, SELFPAY ==
[2021-11-27 11:34] VITALS: BP 216/86; PULSE 63; RESP 18; TEMP 36.4; O2SAT 96; BMI 39.9
[2021-11-27 11:51] LABS: Mucous, Urine 0 SEEN /hpf (<or=2+); Squamous Epithelial Cells - UA 0 SEEN /hpf (0-5)
[2021-11-27 11:56] LABS: Color, Urine Red (Yellow); Glucose, Dipstick 1000 mg/dl (Normal); Ketone-Dipstick Negative (Negative); Leukocyte Esterase-Dipstick 500 /ul (Negative); Nitrite-Dipstick Negative (Negative); Occult Blood-Urine 250 /ul (Negative); Protein-Dipstick 100 mg/dl (Negative); Urine Bilirubin Dipstick Negative (Negative); Urine Clarity Cloudy (Clear); Urine Urobilinogen Normal (Normal)
[2021-11-27 12:08] LABS: Bacteria 2+ /hpf (None Seen); Red Blood Cells-Urine > 100 SEEN /hpf (0-5); White Blood Cells 10-25 SEEN /hpf (0-5)
--- NOTE | 2021-11-27 13:30 | EX.ED.GUMALE ---
HPI History of Present Illness Chief Complaint: White C/O Narrative Narrative: 71-year-old male presenting with hematuria and decreased flow of his White catheter. He states he had this placed a couple of days ago when he had surgery by Dr. Schulz. Patient apparently has a history of prostate cancer and states a White was initially placed during the TURP procedure. They tried to take this out but he was unable to urinate. He has had blood in his urine since then. He states it has been intermittent clotting off since earlier today. He has not had any fever, chills, nausea, vomiting. He feels otherwise well. He is not on Eliquis currently as it is on hold after the surgery. [facility] Medical History Arthritis Atrial fibrillation BiPAP (biphasic positive airway pressure) dependence Cancer Cardiology follow-up encounter Depression Diabetes Dietary restriction Essential hypertension Excessive bleeding Hepatic cyst History of CHF (congestive heart failure) History of echocardiogram History of edema History of renal disease History of stress test Hypertension Injury of head and neck Malignant neoplasm of left kidney Non-smoker Osteoarthritis Persistent atrial fibrillation Renal mass Seizures Sleep apnea Type 2 diabetes mellitus Ulcerative colitis Wears dentures Wears glasses Home Medications sitagliptin 50 mg tablet (Januvia) 50 mg PO DAILY diabetes 06/02/20 [History Last Taken 02/04/21 09:00] ascorbic acid (vitamin C) 500 mg tablet 500 mg PO DAILY health maintenance 06/05/20 [History Last Taken 02/04/21 09:00] balsalazide 750 mg capsule 2,250 mg PO TID colitis 06/05/20 [History Last Taken 02/04/21 09:00] cholecalciferol (vitamin D3) 10 mcg (400 unit) capsule 10 mcg PO DAILY vitamin 06/05/20 [History Last Taken Unknown] dorzolamide 2 % eye drops 1 drp ophthalmic (eye) BID eyes 06/05/20 [History Last Taken 02/04/21 21:00] omega-3 fatty acids 1,000 mg capsule (Fish Oil Concentrate) 1,000 mg PO DAILY health maintenance 06/05/20 [History Last Taken 02/04/21] apixaban 5 mg tablet (Eliquis) 5 mg PO BID anticoagulant 02/06/21 [History Last Taken 11/20/21] azathioprine 50 mg tablet 50 mg PO BID COLITIS 02/06/21 [History Last Taken 02/04/21] zinc sulfate 110 mg PO DAILY health maintenance 02/06/21 [History Last Taken 02/04/21 09:00] bumetanide 1 mg tablet 1.5 mg PO DAILY 11/17/21 [History Last Taken Unknown] dandelion root 525 mg capsule 525 mg PO DAILY 11/17/21 [History Last Taken Unknown] dha-epa-vit A-vit A-pwuswjz-PW capsule 1 cap PO DAILY 11/17/21 [History Last Taken Unknown] empagliflozin 10 mg tablet (Jardiance) 10 mg PO DAILY 11/17/21 [History Last Taken Unknown] multivitamin 1 tab PO DAILY 11/17/21 [History Last Taken Unknown] vitamin B complex 1 tab PO DAILY 11/17/21 [History Last Taken Unknown] ciprofloxacin HCl 500 mg tablet (Cipro) 500 mg PO BID #10 tabs 11/24/21 [Rx Last Taken Unknown] Allergy/AdvReac Type Severity Reaction Status Date / Time levofloxacin [From Levaquin] Allergy Hives Verified 11/27/21 11:34 furosemide [From Lasix] AdvReac Rash Verified 11/27/21 11:34 hydromorphone HCl AdvReac Shortness Verified 11/27/21 11:34 [From Dilaudid] of breath Family History Father Congestive heart failure Diabetes CVA (cerebral vascular accident) Brother Myocardial infarction Sister Parkinson disease Surgical History Cataract extraction status History of cholecystectomy History of partial nephrectomy (~11/26/14) Social History Smoking Status: Former smoker alcohol intake: former substance use type: does not use caffeine: Yes Type: coffee Number of servings: 1 ROS ROS ED Constitutional Constitutional ED: Denies chills or fever(s) Eyes Eyes: Denies blurry vision or change in vision ENT ENT ED: Denies rhinorrhea Cardiovascular Cardiovascular: Denies chest pain or palpitations Respiratory/Chest Respiratory/Chest: Denies cough or dyspnea Gastrointestinal Gastrointestinal: Denies abdominal pain, nausea or vomiting Genitourinary Genitourinary ED: Reports hematuria and other Details: Urinary retention intermittent Musculoskeletal Musculoskeletal: Denies arthralgias or back pain Integumentary Denies abscess Neurologic Neurologic: Denies headache(s) or paresthesias Psychiatric Psychiatric: Denies anxiety or depression EXAM Physical Exam Const Vital Signs: 11/27/21 11:34 Temperature 97.5 F L Temperature Source Temporal Pulse Rate 63 Respiratory Rate 18 Blood Pressure 216/86 H Blood Pressure Mean 129 Pulse Ox 96 Oxygen Delivery Method Room Air Positive well nourished General Appearance ED: NAD; Negative for pallor HEENT Reports moist mucous membranes normocephalic and atraumatic Eyes PERRL and EOMs intact bilaterally Resp normal respiratory effort and clear to auscultation bilaterally Cardio regular rate and regular rhythm GI non-tender, non-distended and no masses Back/Spine no CVA tenderness Neuro oriented x3 and CN's II-XII intact bilaterally Sensorium / Orientation: alert Psych mental status grossly normal Skin General Skin Exam: Negative for jaundice or pallor MDM MDM MDM Narrative Medical decision making narrative: Patient presents with White outlet obstruction but appears to be intermittently draining. Nursing staff did irrigate this and was able to get some clots but not all of them. I spoke with Dr. Schulz who came in to see the patient and was able to irrigate the patient's bladder and get all of the clots out. He is now spontaneously draining it started to clear. Patient tolerated this well. He is to continue his antibiotics and follow-up with Dr. Schulz. 1. White obstruction 2. History of TURP procedure 3. Hematuria 4. UTI Lab Data Attestation: I reviewed the patient's lab results. Labs: Laboratory Results - last 24 hr 11/27/21 11:40 Urine Color Red Urine Clarity Cloudy Urine pH 7.0 Ur Specific [place] 1.010 Urine Protein 100 H Urine Glucose (UA) 1000 H Urine Ketones Negative Urine Occult Blood 250 H Urine Nitrite Negative Urine Bilirubin Negative Urine Urobilinogen Normal Ur Leukocyte Esterase 500 H Urine RBC > 100 SEEN Urine WBC 10-25 SEEN Ur Squamous Epith Cells 0 SEEN Urine Bacteria 2+ Urine Mucus 0 SEEN Discharge Plan Triage Chief Complaint: White C/O ED Provider: Thomas Caldwell Dx/Rx/DC Orders Instructions: ED White Catheter, Care Prescriptions: No Action Januvia 50 MG tablet 50 mg PO DAILY azathioprine 50 mg tablet 50 mg PO BID Eliquis 5 mg tablet 5 mg PO BID Hold Instructions: Resume on 12/08/21. Label Comments: LAST DOSE 11/20/21 zinc sulfate 110 mg (25 mg zinc) tablet 110 mg (25 mg zinc) 110 mg PO DAILY multivitamin Tablet 1 tab PO DAILY bumetanide 1 mg tablet 1.5 mg PO DAILY Label Comments: TAKE 1 & 1/2 (ONE & ONE-HALF) TABLETS BY MOUTH ONCE DAILY vitamin B complex Tablet 1 tab PO DAILY dha-epa-vit A-vit Y-jgejnzj-KZ Capsule 1 cap PO DAILY Jardiance 10 mg tablet 10 mg PO DAILY Label Comments: TAKE 1 TABLET BY MOUTH IN THE MORNING dandelion root 525 mg Capsule 525 mg PO DAILY ciprofloxacin HCl [Cipro] 500 mg tablet 500 mg PO BID Qty: 10 0RF ascorbic acid (vitamin C) 500 mg tablet 500 mg PO DAILY balsalazide 750 mg capsule 2,250 mg PO TID cholecalciferol (vitamin D3) 10 mcg (400 unit) capsule 10 mcg PO DAILY dorzolamide 2 % drops 1 drp OPHTHALMIC BID omega-3 fatty acids [Fish Oil Concentrate] 1,000 mg capsule 1,000 mg PO DAILY Primary Care Provider: Lencho Angel Referrals: Binh Schulz MD [Med Staff - Active Staff] - Keep Quique appointment Lencho Angel DO [Primary Care Provider] - Disposition Disposition: Home, Self Care
[2021-11-27 14:58] VITALS: RESP 18
== END 2021-11-27 14:59 | disposition home or self-care (01) ==
PROVIDERS: Emergency Provider Student in an Organized Health Care Education/Training Program; Visit Provider Student in an Organized Health Care Education/Training Program
DX: T83.091A Other mechanical complication of indwelling urethral catheter, initial encounter (principal); I11.0 Hypertensive heart disease with heart failure; I50.9 Heart failure, unspecified; I48.19 Other persistent atrial fibrillation; E11.9 Type 2 diabetes mellitus without complications; X58.XXXA Exposure to other specified factors, initial encounter; N39.0 Urinary tract infection, site not specified; Z90.5 Acquired absence of kidney; Z85.46 Personal history of malignant neoplasm of prostate; Z79.84 Long term (current) use of oral hypoglycemic drugs; Z79.899 Other long term (current) drug therapy; Z87.891 Personal history of nicotine dependence
CPT/HCPCS: 81001; 99282

== ENCOUNTER → 2021-11-29 | Outpatient (CLI) | payer MEDICARE, OTHER, SELFPAY ==
[2021-11-29 15:10] LABS: Absolute Lymphocyte Count 1.32 X10^3/uL (0.83-4.51); Absolute Neutrophil Count 5.9 X10^3/uL (2.0-7.7); Basophil# 0.05 X10^3/uL; Basophil% 0.6 % (0-1); Eosinophil# 0.37 X10^3/uL; Eosinophils% 4.4 % (0-5); Hematocrit 40.8 % (40-54); Hemoglobin 13.5 g/dL (13.0-16.5); Lymphocyte # 1.32 X10^3/ul (0.83-4.51); Lymphocyte % 15.8 % (19-41); Mean Corp Hgb Conc 33.1 g/dL (32-36); Mean Corpuscular Hgb 30.1 pg (27.0-32.0); Mean Corpuscular Volume 91.1 fL (80-94); Mean Platelet Vol. 11.4 fl (6.2-12.0); Monocyte# 0.76 X10^3/uL; Monocyte% 9.1 % (0-10); NRBC Flagged by Analyzer 0 % (0-5); Neutrophil # 5.86 X10^3/uL (2.7-7.7); Neutrophil % 69.9 % (47-70); Platelet Count 192 K/mm3 (150-450); RBC Distribution Width CV 13.1 % (11.6-14.6); RBC Distribution Width SD 43.9 fl (35.1-43.9); Red Blood Count 4.48 M/mm3 (4.6-6.2); White Blood Count 8.4 K/mm3 (4.4-11.0)
== END | disposition home or self-care (01) ==
PROVIDERS: Referring Provider Internal Medicine Gastroenterology; Visit Provider Internal Medicine Gastroenterology
DX: K51.00 Ulcerative (chronic) pancolitis without complications (principal)
CPT/HCPCS: 36415; 85025

== ENCOUNTER → 2022-02-25 | Outpatient (CLI) | payer MEDICARE, OTHER, SELFPAY ==
[2022-02-25 13:05] VITALS: PULSE 44; PULSE 50; PULSE 60; PULSE 69; PULSE 82; PULSE 84; PULSE 88; PULSE 89; O2SAT 93; O2SAT 94; O2SAT 95; O2SAT 96
--- NOTE | 2022-03-01 06:45 | WT_ITS ---
PSN 6 Minute Walk Test 6 Minute Walk Test 6 Minute Walk Test: 6 Minute Walk Test PSN:6-Minute Walk Test Start: 02/25/22 13:04 Freq: Status: Active Protocol: [id number] Document 02/25/22 13:05 [facility] (Rec: 02/25/22 13:08 [facility] [id number]) 6 Minute Walk Test Date Performed 02/25/22 Time Performed 12:30 Height 5 ft 6 in Weight: 240 lb Weight in Pounds 240.[address]: Maame Basilio NP Assistive device used: None Pre-test Oxygen Delivery Method Room Air Pulse Ox (%) 95 Pulse Rate (60-100 beats/min) 44 L Dyspnea Sharath Scale (0-10) 0 1st minute Oxygen Delivery Method Room Air Pulse Ox (%) 94 Pulse Rate (60-100 beats/min) 60 Dyspnea Sharath Scale (0-10) 0 Number of Rests Taken 0 2nd minute Oxygen Delivery Method Room Air Pulse Ox (%) 93 Pulse Rate (60-100 beats/min) 69 Dyspnea Sharath Scale (0-10) 0 Number of Rests Taken 0 3rd minute Oxygen Delivery Method Room Air Pulse Ox (%) 93 Pulse Rate (60-100 beats/min) 84 Dyspnea Sharath Scale (0-10) 1 Number of Rests Taken 0 4th minute Oxygen Delivery Method Room Air Pulse Ox (%) 94 Pulse Rate (60-100 beats/min) 89 Dyspnea Sharath Scale (0-10) 1 Number of Rests Taken 0 5th minute Oxygen Delivery Method Room Air Pulse Ox (%) 94 Pulse Rate (60-100 beats/min) 88 Dyspnea Sharath Scale (0-10) 1 Number of Rests Taken 0 6th minute Oxygen Delivery Method Room Air Pulse Ox (%) 94 Pulse Rate (60-100 beats/min) 82 Dyspnea Sharath Scale (0-10) 1 Number of Rests Taken 0 Post-test Oxygen Delivery Method Room Air Pulse Ox (%) 96 Pulse Rate (60-100 beats/min) 50 L Dyspnea Sharath Scale (0-10) 0 Full Laps Walked 13 Partial Lap, Number of Tiles Walked 8 Total Distance Walked (ft) 775 Interpretation Interpretation: The patient ambulated 775 feet over the course of 6 minutes beginning on room air without assistive devices. Pretesting oxygen saturation was noted to be 95% on room air. With ambulation, the sai oxygen saturation was 93%. There was no significant exertional oxygen desaturation. Recommendations Recommendations: There is no indication for the use of supplemental oxygen at this time.
== END | disposition home or self-care (01) ==
LOC: PSN 12:21
PROVIDERS: Referring Provider Nurse Practitioner Acute Care; Visit Provider Nurse Practitioner Acute Care
DX: R09.02 Hypoxemia (principal)
CPT/HCPCS: 94618

== ENCOUNTER → 2022-03-31 | Outpatient (CLI) | payer MEDICARE, OTHER, SELFPAY ==
[2022-03-31 15:31] LABS: PSA,Total- Diagnostic 5.71 ng/mL (0.0-4.0)
== END | disposition home or self-care (01) ==
LOC: LAB 13:56
PROVIDERS: Referring Provider Urology; Visit Provider Urology
DX: N40.1 Benign prostatic hyperplasia with lower urinary tract symptoms (principal)
CPT/HCPCS: 36415; 84153

== ENCOUNTER → 2022-07-26 | Outpatient (CLI) | payer MEDICARE, OTHER, SELFPAY ==
[2022-07-26 15:08] LABS: Hematocrit 43.4 % (40-54); Hemoglobin 14.5 g/dL (13.0-16.5); Mean Corp Hgb Conc 33.4 g/dL (32-36); Mean Corpuscular Hgb 30.6 pg (27.0-32.0); Mean Corpuscular Volume 91.6 fL (80-94); Mean Platelet Vol. 10.5 fl (6.2-12.0); Platelet Count 183 K/mm3 (150-450); RBC Distribution Width CV 13.5 % (11.6-14.6); RBC Distribution Width SD 45.5 fl (35.1-43.9); Red Blood Count 4.74 M/mm3 (4.6-6.2); White Blood Count 9.9 K/mm3 (4.4-11.0)
[2022-07-26 15:28] LABS: Protein, Urine (Random) 26.9 mg/dL (<11.9); Protein:Creat Ratio 299 mg/g CRE (0-200)
[2022-07-26 15:33] LABS: Albumin, Serum 3.5 g/dL (3.2-5.0); BUN 34 mg/dL (7-18); BUN/Creat Ratio 20.6 RATIO (10-20); Calcium,Total 8.8 mg/dL (8.5-10.1); Chloride 109 mmol/L (98-107); Creatinine, Serum 1.65 mg/dL (0.70-1.30); EST Glomerular Filtration Rate 44 mL/min (>60); Est Glom Filt Rate - Afr Amer 53 mL/min (>60); Glucose 138 mg/dL (74-106); Phosphorus 2.7 mg/dL (2.5-4.9); Potassium 3.9 mmol/L (3.5-5.1); Sodium Level 142 mmol/L (136-145)
[2022-07-26 15:45] LABS: Vitamin D,25 Hydroxy 58.7 ng/mL
[2022-07-27 08:38] LABS: PTHIN 99.5 pg/mL (18.4-80.1)
== END | disposition home or self-care (01) ==
LOC: LAB 14:43
PROVIDERS: Referring Provider Internal Medicine Nephrology; Visit Provider Internal Medicine Nephrology
DX: N18.31 Chronic kidney disease, stage 3a (principal)
CPT/HCPCS: 36415; 80069; 82306; 82570; 83970; 84156; 85027

== ENCOUNTER 2022-07-28 19:47 | Emergency (ER) | payer MEDICARE, OTHER, SELFPAY ==
[2022-07-28 19:48] VITALS: BP 164/65; PULSE 59; RESP 18; TEMP 36.9; O2SAT 97; BMI 39.4
--- NOTE | 2022-07-28 20:00 | RAD_ITS ---
INDICATION: Trauma, fall, injury EXAMINATION/TECHNIQUE: X-RAY - RIGHT XR Knee Complete 4 Views or More 4 VIEWS COMPARISON: None. FINDINGS: SOFT TISSUES: No soft tissue swelling or gas. No radiopaque foreign body. BONES/JOINTS: No acute fracture. Moderate tricompartmental degenerative changes. No sclerotic or destructive changes observed. RAD/Knee 4 or More Views IMPRESSION: No acute bony injury. Electronically Signed: Rafael Bunch MD at 20:20 EDT ,
[2022-07-28] MEDS: Ibuprofen 600 MG Tablet PO (21:54)
--- NOTE | 2022-07-28 22:37 | ED.VIS.LOWEX ---
HPI History of Present Illness Chief Complaint: Fall Narrative Narrative: 71-year-old male presenting after a fall which was mechanical. He hurt his knee and it hurts behind his right knee. He also has an abrasion to the tibia. Patient is ambulatory with antalgic gait. Denies other injury. No head injury or LOC. Patient does not take anything for pain prior to arrival. [facility] Medical History Arthritis Atrial fibrillation BiPAP (biphasic positive airway pressure) dependence Cancer Cardiology follow-up encounter Depression Diabetes Dietary restriction Essential hypertension Excessive bleeding Hepatic cyst History of CHF (congestive heart failure) History of echocardiogram History of edema History of renal disease History of stress test Hypertension Injury of head and neck Malignant neoplasm of left kidney Non-smoker Osteoarthritis Persistent atrial fibrillation Renal mass Seizures Sleep apnea Type 2 diabetes mellitus Ulcerative colitis Wears dentures Wears glasses Home Medications sitagliptin phosphate 50 mg tablet (Januvia) 50 mg PO DAILY diabetes 06/02/20 [History Last Taken 02/04/21 09:00] ascorbic acid (vitamin C) 500 mg tablet 500 mg PO DAILY health maintenance 06/05/20 [History Last Taken 02/04/21 09:00] balsalazide 750 mg capsule 2,250 mg PO TID colitis 06/05/20 [History Last Taken 02/04/21 09:00] cholecalciferol (vitamin D3) 10 mcg (400 unit) capsule 10 mcg PO DAILY vitamin 06/05/20 [History Last Taken Unknown] dorzolamide 2 % eye drops 1 drp ophthalmic (eye) BID eyes 06/05/20 [History Last Taken 02/04/21 21:00] omega-3 fatty acids 1,000 mg capsule (Fish Oil Concentrate) 1,000 mg PO DAILY health maintenance 06/05/20 [History Last Taken 02/04/21] apixaban 5 mg tablet (Eliquis) 5 mg PO BID anticoagulant 02/06/21 [History Last Taken 11/20/21] azathioprine 50 mg tablet 50 mg PO BID COLITIS 02/06/21 [History Last Taken 02/04/21] zinc sulfate 110 mg PO DAILY health maintenance 02/06/21 [History Last Taken 02/04/21 09:00] bumetanide 1 mg tablet 1.5 mg PO DAILY 11/17/21 [History Last Taken Unknown] dandelion root 525 mg capsule 525 mg PO DAILY 11/17/21 [History Last Taken Unknown] dha-epa-vit A-vit V-tvjzljo-YQ capsule 1 cap PO DAILY 11/17/21 [History Last Taken Unknown] multivitamin 1 tab PO DAILY 11/17/21 [History Last Taken Unknown] vitamin B complex 1 tab PO DAILY 11/17/21 [History Last Taken Unknown] empagliflozin 10 mg tablet (Jardiance) 25 mg PO DAILY 02/15/22 [History Last Taken Unknown] Allergy/AdvReac Type Severity Reaction Status Date / Time levofloxacin [From Levaquin] Allergy Hives Verified 07/28/22 19:48 furosemide [From Lasix] AdvReac Rash Verified 07/28/22 19:48 hydromorphone HCl AdvReac Shortness Verified 07/28/22 19:48 [From Dilaudid] of breath Family History Father Congestive heart failure Diabetes CVA (cerebral vascular accident) Brother Myocardial infarction Sister Parkinson disease Surgical History Cataract extraction status History of cholecystectomy History of partial nephrectomy (~11/26/14) Social History Smoking Status: Former smoker alcohol intake: former substance use type: does not use caffeine: Yes Type: coffee Number of servings: 1 ROS ROS ED Constitutional Constitutional ED: Denies chills, fever(s) or sweats Eyes Eyes: Denies blurry vision or change in vision ENT ENT ED: Denies ear pain or sore throat Cardiovascular Cardiovascular: Denies chest pain, palpitations or racing heartbeat Respiratory/Chest Respiratory/Chest: Denies cough, dyspnea or sputum Gastrointestinal Gastrointestinal: Denies abdominal pain, constipation, diarrhea, nausea or vomiting Genitourinary Genitourinary ED: Denies dysuria, hematuria or urinary frequency Musculoskeletal Musculoskeletal: Reports other Details: Right knee pain ; Denies arthralgias, myalgias or neck pain Integumentary Reports Abrasions; Denies abscess or rash Neurologic Neurologic: Denies headache(s), paresthesias or weakness Psychiatric Psychiatric: Denies anxiety, depression, suicidal ideation or suicidal thoughts Endocrine Endocrinology: Denies polydipsia or polyuria EXAM Physical Exam Const Vital Signs: 07/28/22 19:48 Temperature 98.5 F Temperature Source Temporal Pulse Rate 59 L Respiratory Rate 18 Blood Pressure 164/65 H Blood Pressure Mean 98 Pulse Ox 97 Oxygen Delivery Method Room Air Positive well nourished General Appearance ED: NAD HEENT Reports moist mucous membranes normocephalic and atraumatic Cardio regular rate and regular rhythm Extremity Extremity Narrative: Superficial abrasion overlying the right rib tibia measuring approximately 8 cm in length and 3 cm in width. No bony tenderness. Right knee has some tenderness palpation posteriorly. There is no patellar tenderness. There is a little bit of infrapatellar edema. Right knee extensor mechanism is intact. Patient was able to get up and ambulate around the room. Neuro oriented x3 and CN's II-XII intact bilaterally Sensorium / Orientation: alert Motor Exam: strength 5/5 throughout Psych mental status grossly normal MDM MDM MDM Narrative Medical decision making narrative: Patient presenting with right knee pain and a tibial abrasion. He had mechanical fall. He took nothing for pain prior to arrival. He request some ibuprofen and he was given this. X-ray of the right knee was obtained and does not show any acute fracture or subluxation on my interpretation. Patient is able to ambulate around the room but he does request some crutches to help him with walking. This was provided. Patient discharged home in stable condition. Impression: 1. Mechanical fall 2. Right knee contusion 3. Right tibial abrasion Lab Data Attestation: I reviewed the patient's lab results. Radiography Diagnostic Testing: Clinical Impression(s) from Imaging Studies Knee X-Ray 07/28/22 20:00 IMPRESSION: No acute bony injury. Electronically Signed: Rafael Bunch MD at 20:20 EDT Reading Location ID and State: [facility] / [place] Tel , Service support , Discharge Plan Triage Chief Complaint: Fall ED Provider: Thomas Caldwell Dx/Rx/DC Orders Instructions: ED Contusion, Lower Extremity Prescriptions: No Action Januvia 50 MG tablet 50 mg PO DAILY azathioprine 50 mg tablet 50 mg PO BID Eliquis 5 mg tablet 5 mg PO BID Hold Instructions: Resume on 12/08/21. Label Comments: LAST DOSE 11/20/21 zinc sulfate 110 mg (25 mg zinc) tablet 110 mg (25 mg zinc) 110 mg PO DAILY multivitamin Tablet 1 tab PO DAILY bumetanide 1 mg tablet 1.5 mg PO DAILY Label Comments: TAKE 1 & 1/2 (ONE & ONE-HALF) TABLETS BY MOUTH ONCE DAILY vitamin B complex Tablet 1 tab PO DAILY dha-epa-vit A-vit B-vbmddcl-UM Capsule 1 cap PO DAILY dandelion root 525 mg Capsule 525 mg PO DAILY Jardiance 10 mg tablet 25 mg PO DAILY Label Comments: TAKE 1 TABLET BY MOUTH IN THE MORNING ascorbic acid (vitamin C) 500 mg tablet 500 mg PO DAILY balsalazide 750 mg capsule 2,250 mg PO TID cholecalciferol (vitamin D3) 10 mcg (400 unit) capsule 10 mcg PO DAILY dorzolamide 2 % drops 1 drp OPHTHALMIC BID omega-3 fatty acids [Fish Oil Concentrate] 1,000 mg capsule 1,000 mg PO DAILY Primary Care Provider: Lencho Angel Referrals: Lencho Angel DO [Primary Care Provider] - Disposition Disposition: Home, Self Care Discharge Date/Time: 07/28/22 22:03
== END 2022-07-28 22:03 | disposition home or self-care (01) ==
PROVIDERS: Emergency Provider Student in an Organized Health Care Education/Training Program; Visit Provider Student in an Organized Health Care Education/Training Program
DX: S80.01XA Contusion of right knee, initial encounter (principal); I11.0 Hypertensive heart disease with heart failure; I50.9 Heart failure, unspecified; I48.19 Other persistent atrial fibrillation; E11.9 Type 2 diabetes mellitus without complications; S80.811A Abrasion, right lower leg, initial encounter; W18.30XA Fall on same level, unspecified, initial encounter; Z79.01 Long term (current) use of anticoagulants; Z79.84 Long term (current) use of oral hypoglycemic drugs; Z79.899 Other long term (current) drug therapy; Z87.891 Personal history of nicotine dependence
CPT/HCPCS: 73564; 99284

== ENCOUNTER → 2022-08-23 | Outpatient (CLI) | payer MEDICARE, OTHER, SELFPAY ==
[2022-08-23 14:49] LABS: Hematocrit 45.5 % (40-54); Hemoglobin 15.5 g/dL (13.0-16.5); Mean Corp Hgb Conc 34.1 g/dL (32-36); Mean Corpuscular Hgb 30.7 pg (27.0-32.0); Mean Corpuscular Volume 90.1 fL (80-94); Mean Platelet Vol. 11.1 fl (6.2-12.0); Platelet Count 158 K/mm3 (150-450); RBC Distribution Width CV 13.2 % (11.6-14.6); RBC Distribution Width SD 43.2 fl (35.1-43.9); Red Blood Count 5.05 M/mm3 (4.6-6.2); White Blood Count 7.4 K/mm3 (4.4-11.0)
[2022-08-23 15:18] LABS: ALB/GLOB Ratio 0.9 RATIO (0.9-2.4); AST(SGOT) 11 U/L (15-37); Alanine Aminotransfer ALT/SGPT 17 U/L (16-61); Albumin, Serum 3.6 g/dL (3.2-5.0); Alkaline Phosphatase 86 U/L (45-117); Anion Gap 5 (5-15); BUN 25 mg/dL (7-18); BUN/Creat Ratio 16.1 RATIO (10-20); CRP 7.08 mg/L (0.0-3.0); Calcium,Total 9.2 mg/dL (8.5-10.1); Chloride 104 mmol/L (98-107); Creatinine, Serum 1.55 mg/dL (0.70-1.30); EST Glomerular Filtration Rate 47 mL/min (>60); Est Glom Filt Rate - Afr Amer 57 mL/min (>60); Globulin 4.1 g/dL (2.2-4.2); Glucose 222 mg/dL (74-106); Protein, Total 7.7 g/dL (6.4-8.2); Sodium Level 137 mmol/L (136-145)
== END | disposition home or self-care (01) ==
PROVIDERS: Referring Provider Internal Medicine Gastroenterology; Visit Provider Internal Medicine Gastroenterology
DX: K51.80 Other ulcerative colitis without complications (principal)
CPT/HCPCS: 36415; 80053; 85027; 86140

== ENCOUNTER → 2022-08-31 | Outpatient (CLI) | payer MEDICARE, OTHER, SELFPAY ==
--- NOTE | 2022-08-31 11:00 | ECHOCS_ITS ---
Reason For Study: CONGESTIVE HEART FAILURE Procedure This was a 2D Doppler, Color Flow transthoracic echocardiogram. Exam performed in department. Left Ventricle Normal LV size. Moderate concentric left ventricular hypertrophy. Left ventricular systolic function is normal. The estimated ejection fraction is 60 %. Stage 1 diastolic dysfunction. Right Ventricle Normal RV size. Normal systolic function. Atria The left atrium is moderately enlarged. The right atrium is mildly enlarged. Mitral Valve Normal mitral valve. Tricuspid Valve Normal tricuspid valve. Mild tricuspid valve insufficiency. Pulmonary artery systolic pressure is 24 mmHg. Aortic Valve Normal aortic valve. Pulmonic Valve Normal pulmonic valve. Great Vessels Normal aortic root. The pulmonary artery is normal size. Normal inferior vena cava. Pericardium/Pleural No pericardial effusion. MMode/2D Measurements & Calculations LVIDd: 5.4 cm IVSd: 1.5 cm LVOT diam: 2.1 cm LVIDs: 3.2 cm LVPWd: 1.4 cm LVOT area: 3.6 cm2 RVDd: 4.2 cm FS: 40.2 % Ao root diam: 3.4 cm LAV(MOD-bp): 87.2 ml LVAd ap4: 34.4 cm2 LAV(MOD-bp) Indexed: 40.5 ml/m2 LVLd ap4: 8.7 cm LAV(MOD-sp2): 96.8 ml EDV(MOD-sp4): 109.8 ml LAV(MOD-sp4): 78.4 ml EDV(sp4-el): 115.4 ml LVAs ap4: 17.5 cm2 LVLs ap4: 7.0 cm ESV(MOD-sp4): 37.1 ml ESV(sp4-el): 37.1 ml EF(MOD-sp4): 66.2 % EF(sp4-el): 67.8 % LVAd ap2: 36.8 cm2 SV(MOD-sp4): 72.7 ml SV(MOD-sp2): 88.3 ml LVLd ap2: 9.0 cm EDV(MOD-sp2): 127.9 ml EDV(sp2-el): 128.4 ml LVAs ap2: 18.0 cm2 LVLs ap2: 6.9 cm ESV(MOD-sp2): 39.7 ml ESV(sp2-el): 39.8 ml EF(MOD-sp2): 69.0 % SV(sp4-el): 78.3 ml LA dimension(2D): 5.3 cm LA A4 area: 25.5 cm2 RA A4 area: 23.3 cm2 TAPSE: 2.0 cm Time Measurements MV dec time: 0.22 sec Doppler Measurements & Calculations MV E max thien: 64.9 cm/sec Lat Peak E' Thien: 5.9 cm/sec Med Peak E' Thien: 4.7 cm/sec MV A max thien: 122.3 cm/sec E/E' lat: 11.1 E/E' med: 13.8 MV E/A: 0.53 Ao V2 max: 133.0 cm/sec LV V1 max: 103.3 cm/sec MV dec slope: 290.1 cm/sec2 Ao max P.1 mmHg LV V1 max P.3 mmHg Ao V2 mean: 90.1 cm/sec LV V1 mean P.1 mmHg Ao mean P.8 mmHg LV V1 mean: 66.2 cm/sec Ao V2 VTI: 36.7 cm LV V1 VTI: 27.2 cm AV (velocity ratio): 0.74 CHAUNCEY(I,D): 2.7 cm2 CHAUNCEY(V,D): 2.8 cm2 SV(LVOT): 98.6 ml PA V2 max: 108.4 cm/sec TR max thien: 233.6 cm/sec PA max PG (full): 2.5 mmHg TR max P.8 mmHg ECHO/Echo Complete Interpretation Summary Left ventricular systolic function is normal. The estimated ejection fraction is 60 %. Stage 1 diastolic dysfunction. Normal LV size. Moderate concentric left ventricular hypertrophy. The left atrium is moderately enlarged. The right atrium is mildly enlarged. Ordering Physician: Terrance Fernandez Referring Physician: Terrance Fernandez Performed By: Zoie Schwarz RDCS
== END | disposition home or self-care (01) ==
LOC: CVS 10:37
PROVIDERS: Referring Provider Internal Medicine Critical Care Medicine; Visit Provider Internal Medicine Critical Care Medicine
DX: I50.9 Heart failure, unspecified (principal); I51.7 Cardiomegaly
CPT/HCPCS: 93306

== ENCOUNTER → 2022-09-27 | Outpatient (CLI) | payer MEDICARE, OTHER, SELFPAY ==
[2022-09-27 11:56] LABS: PSA,Total- Diagnostic 7.04 ng/mL (0.0-4.0)
== END | disposition home or self-care (01) ==
LOC: LAB 10:06
PROVIDERS: Referring Provider Registered Nurse; Visit Provider Registered Nurse
DX: C61 Malignant neoplasm of prostate (principal)
CPT/HCPCS: 36415; 84153

== ENCOUNTER → 2022-10-13 | Outpatient (CLI) | payer MEDICARE, OTHER, SELFPAY ==
--- NOTE | 2022-10-13 13:51 | CT_ITS ---
INDICATION: Malignant neoplasm of left kidney, except renal pelvis. A radiation dose optimization technique was used for this scan. COMPARISON: Abdominal CT 11/03/2020. IV Contrast dosage and agent: 100mL [id number] IV. Radiation CTDIvol 20.20 Radiation DLP 2208.39 FINDINGS: Contrast enhanced serial CT axial images of the abdomen and pelvis with coronal and sagittal reformatted series. PANCREAS: No peripancreatic fat stranding. BOWEL/MESENTERY: No dilated bowel loops. No significant free fluid. No free air. GALLBLADDER: Absent gallbladder with surgical clips in the gallbladder fossa. LIVER/STOMACH: Small hepatic cyst. APPENDIX: Normal caliber gas containing appendix. ABDOMINAL WALL: Small fat-containing bilateral inguinal hernias without inflammatory change. URINARY COLLECTING SYSTEM/ KIDNEYS: No obstructing ureteral calculus. Focal left renal cortical scarring. Simple fluid attenuating bilateral renal lesions, likely renal cysts. However, within the right upper renal pole there is 2 cm hypoattenuating lesion which does not measure simple fluid attenuation, unchanged from 2020, likely representing milk of calcium or proteinaceous cyst. Enlarged heterogeneous prostate containing ill-defined hypoattenuating 2 cm right paramidline lesion, best appreciated on axial image 106 of series 2 and coronal image 81 of series 601. LUNG BASES: Unremarkable. BONES: Unremarkable for age. CT/Abdomen/Pelvis WITH Contrast IMPRESSION: Bilateral likely renal cysts. Within the right upper renal pole there is 2 cm hypoattenuating lesion which does not measure simple fluid attenuation, unchanged from 2020, likely representing milk of calcium or proteinaceous cyst. However, given history of renal cell carcinoma, recommend continued interval follow-up of this lesion for five-year stability versus comparison with previous older imaging before 2020. No evidence of recurrent disease. Enlarged heterogeneous prostate containing ill-defined hypoattenuating 2 cm right paramidline lesion as above, new from 2020. Urologic evaluation should be considered. Electronically Signed: Hayes Hernández MD at 21:45 EDT ,
[2022-10-13 14:22] LABS: CREATININE FINGERSTICK 0.9 mg/dL (0.70-1.30); EGFR FINGERSTICK > 60.0000 mL/min (>60)
== END | disposition home or self-care (01) ==
LOC: CT 13:50
PROVIDERS: Referring Provider Urology; Visit Provider Urology
DX: C64.2 Malignant neoplasm of left kidney, except renal pelvis (principal)
CPT/HCPCS: 74177; Q9967

== ENCOUNTER → 2022-10-20 | Outpatient (CLI) | payer MEDICARE, OTHER, SELFPAY | END | disposition home or self-care (01) | LOC: SL 19:32 | PROVIDERS: Referring Provider Internal Medicine Critical Care Medicine; Visit Provider Internal Medicine Critical Care Medicine | DX: G47.31 Primary central sleep apnea (principal) | CPT/HCPCS: 95811 ==

== ENCOUNTER → 2023-01-30 | Outpatient (CLI) | payer MEDICARE, OTHER, SELFPAY ==
[2023-01-30 11:21] LABS: Hematocrit 45.9 % (40-54); Mean Corp Hgb Conc 32.7 g/dL (32-36); Mean Corpuscular Hgb 29.6 pg (27.0-32.0); Mean Corpuscular Volume 90.7 fL (80-94); Mean Platelet Vol. 10.1 fl (6.2-12.0); Platelet Count 181 K/mm3 (150-450); RBC Distribution Width CV 13.7 % (11.6-14.6); RBC Distribution Width SD 45.8 fl (35.1-43.9); Red Blood Count 5.06 M/mm3 (4.6-6.2); White Blood Count 7.6 K/mm3 (4.4-11.0)
[2023-01-30 11:50] LABS: PTHIN 62.3 pg/mL (18.4-80.1)
[2023-01-30 12:00] LABS: Albumin, Serum 3.5 g/dL (3.2-5.0); BUN 18 mg/dL (7-18); BUN/Creat Ratio 12.9 RATIO (10-20); Calcium,Total 9.1 mg/dL (8.5-10.1); Chloride 104 mmol/L (98-107); EST Glomerular Filtration Rate 53 mL/min (>60); Est Glom Filt Rate - Afr Amer 64 mL/min (>60); Glucose 194 mg/dL (74-106); Phosphorus 2.2 mg/dL (2.5-4.9); Potassium 3.9 mmol/L (3.5-5.1); Sodium Level 138 mmol/L (136-145)
[2023-01-30 12:03] LABS: Vitamin D,25 Hydroxy 49.8 ng/mL
[2023-01-30 14:47] LABS: Protein, Urine (Random) 9.7 mg/dL (<11.9); Protein:Creat Ratio 280 mg/g CRE (0-200)
== END | disposition home or self-care (01) ==
LOC: LAB 10:46
PROVIDERS: Referring Provider Internal Medicine Nephrology; Visit Provider Internal Medicine Nephrology
DX: N18.31 Chronic kidney disease, stage 3a (principal)
CPT/HCPCS: 36415; 80069; 82306; 82570; 83970; 84156; 85027

== ENCOUNTER → 2023-06-14 | Outpatient (CLI) | payer MEDICARE, OTHER, SELFPAY ==
[2023-06-14 15:45] LABS: Absolute Lymphocyte Count 1.25 X10^3/uL (0.83-4.51); Absolute Neutrophil Count 4.9 X10^3/uL (2.0-7.7); Basophil# 0.02 X10^3/uL; Basophil% 0.3 % (0-1); Eosinophils% 1.4 % (0-5); Hematocrit 46.1 % (40-54); Hemoglobin 14.9 g/dL (13.0-16.5); Lymphocyte # 1.25 X10^3/ul (0.83-4.51); Lymphocyte % 17.9 % (19-41); Mean Corp Hgb Conc 32.3 g/dL (32-36); Mean Corpuscular Hgb 29.6 pg (27.0-32.0); Mean Corpuscular Volume 91.5 fL (80-94); Mean Platelet Vol. 11.2 fl (6.2-12.0); Monocyte# 0.64 X10^3/uL; Monocyte% 9.2 % (0-10); NRBC Flagged by Analyzer 0 % (0-5); Neutrophil # 4.92 X10^3/uL (2.7-7.7); Neutrophil % 70.6 % (47-70); Platelet Count 170 K/mm3 (150-450); RBC Distribution Width SD 47.2 fl (35.1-43.9); Red Blood Count 5.04 M/mm3 (4.6-6.2)
[2023-06-14 16:23] LABS: AST(SGOT) 24 U/L (15-37); Alanine Aminotransfer ALT/SGPT 20 U/L (16-61); Albumin, Serum 3.3 g/dL (3.2-5.0); Alkaline Phosphatase 92 U/L (45-117); Bilirubin, Direct 0.13 mg/dL (0.00-0.30); Globulin 3.7 g/dL (2.2-4.2)
== END | disposition home or self-care (01) ==
LOC: MTLAB 12:47
PROVIDERS: Referring Provider Internal Medicine Gastroenterology; Visit Provider Internal Medicine Gastroenterology
DX: K51.90 Ulcerative colitis, unspecified, without complications (principal)
CPT/HCPCS: 36415; 80076; 85025

== ENCOUNTER → 2023-06-30 | Outpatient (CLI) | payer MEDICARE, OTHER, SELFPAY ==
[2023-06-30 18:26] LABS: Hepatitis B Surface Antigen Non-Reactive (Nonreactive)
[2023-07-04 14:09] LABS: QNTFERON TB Mitogen Value > 10.00 IU/mL (.); QNTFERON TB Nil Value 0.05 IU/mL (.); QNTFERON TB2+ Ag Value 0.04 IU/mL (.); QNTIFERON TB Positive Criteria Negative (Negative)
== END | disposition home or self-care (01) ==
PROVIDERS: Referring Provider Internal Medicine Gastroenterology; Visit Provider Internal Medicine Gastroenterology
DX: K51.90 Ulcerative colitis, unspecified, without complications (principal)
CPT/HCPCS: 36415; 86480; 87340

== ENCOUNTER → 2023-07-25 | Outpatient (CLI) | payer MEDICARE, OTHER, SELFPAY ==
[2023-07-25 13:44] LABS: Hematocrit 46.8 % (40-54); Hemoglobin 15.6 g/dL (13.0-16.5); Mean Corp Hgb Conc 33.3 g/dL (32-36); Mean Corpuscular Hgb 29.8 pg (27.0-32.0); Mean Corpuscular Volume 89.5 fL (80-94); Mean Platelet Vol. 11.8 fl (6.2-12.0); Platelet Count 187 K/mm3 (150-450); RBC Distribution Width CV 13.2 % (11.6-14.6); RBC Distribution Width SD 42.9 fl (35.1-43.9); Red Blood Count 5.23 M/mm3 (4.6-6.2)
[2023-07-25 14:12] LABS: Vitamin D,25 Hydroxy 55.1 ng/mL
[2023-07-25 14:13] LABS: Protein, Urine (Random) < 6.0 mg/dL (<11.9)
[2023-07-25 14:19] LABS: Albumin, Serum 3.6 g/dL (3.2-5.0); BUN 25 mg/dL (7-18); BUN/Creat Ratio 15.6 RATIO (10-20); Calcium,Total 8.8 mg/dL (8.5-10.1); Chloride 104 mmol/L (98-107); EST Glomerular Filtration Rate 45 mL/min (>60); Est Glom Filt Rate - Afr Amer 55 mL/min (>60); Glucose 405 mg/dL (74-106); PSA,Total- Diagnostic 5.63 ng/mL (0.0-4.0); Phosphorus 2.6 mg/dL (2.5-4.9); Potassium 3.7 mmol/L (3.5-5.1); Sodium Level 138 mmol/L (136-145)
== END | disposition home or self-care (01) ==
LOC: LAB 12:56
PROVIDERS: Referring Provider Nurse Practitioner Adult Health; Visit Provider Nurse Practitioner
DX: C61 Malignant neoplasm of prostate (principal); N18.31 Chronic kidney disease, stage 3a
CPT/HCPCS: 36415; 80069; 82306; 82570; 83970; 84153; 84156; 85027

== ENCOUNTER → 2024-01-30 | Outpatient (CLI) | payer MEDICARE, OTHER, SELFPAY ==
[2024-01-30 15:11] LABS: PSA,Total- Diagnostic 5.95 ng/mL (0.0-4.0)
== END | disposition home or self-care (01) ==
PROVIDERS: Referring Provider Urology; Visit Provider Urology
DX: C61 Malignant neoplasm of prostate (principal)
CPT/HCPCS: 36415; 84153

== ENCOUNTER → 2024-03-05 | Outpatient (CLI) | payer MEDICARE, OTHER, SELFPAY ==
[2024-03-05 13:07] LABS: Hematocrit 49.2 % (40-54); Hemoglobin 16.4 g/dL (13.0-16.5); Mean Corp Hgb Conc 33.3 g/dL (32-36); Mean Corpuscular Hgb 29.5 pg (27.0-32.0); Mean Corpuscular Volume 88.5 fL (80-94); Mean Platelet Vol. 11.3 fl (6.2-12.0); Platelet Count 169 K/mm3 (150-450); RBC Distribution Width CV 13.1 % (11.6-14.6); RBC Distribution Width SD 42.4 fl (35.1-43.9); Red Blood Count 5.56 M/mm3 (4.6-6.2); White Blood Count 8.4 K/mm3 (4.4-11.0)
[2024-03-05 13:15] LABS: Protein, Urine (Random) 16.9 mg/dL (<11.9); Protein:Creat Ratio 237 mg/g CRE (0-200)
[2024-03-05 13:28] LABS: Albumin, Serum 3.5 g/dL (3.2-5.0); BUN 21 mg/dL (7-18); BUN/Creat Ratio 13.8 RATIO (10-20); Calcium,Total 8.8 mg/dL (8.5-10.1); Chloride 104 mmol/L (98-107); Creatinine, Serum 1.52 mg/dL (0.70-1.30); EST Glomerular Filtration Rate 48 mL/min (>60); Est Glom Filt Rate - Afr Amer 58 mL/min (>60); Glucose 292 mg/dL (74-106); Potassium 4.2 mmol/L (3.5-5.1); Sodium Level 138 mmol/L (136-145)
[2024-03-05 13:33] LABS: PTHIN 159.9 pg/mL (18.4-80.1)
[2024-03-05 13:36] LABS: Vitamin D,25 Hydroxy 58.7 ng/mL
== END | disposition home or self-care (01) ==
LOC: LAB 12:21
PROVIDERS: Referring Provider Internal Medicine Nephrology; Visit Provider Internal Medicine Nephrology
DX: N18.31 Chronic kidney disease, stage 3a (principal); E87.5 Hyperkalemia
CPT/HCPCS: 36415; 80069; 82306; 82570; 83970; 84156; 85027

== ENCOUNTER 2024-06-19 12:00 | Outpatient (RCR) | payer MEDICARE, OTHER, SELFPAY ==
--- NOTE | 2024-05-17 14:59 | HP.PTEVAL_ITS ---
Patient's Visit Information Visit Information Visit Information: DAPHNE BARR is a 73 year old M referred to Physical Therapy by Dr. Bere Araiza MD with a diagnosis of LBP. Date of Evaluation: 05/17/24 Physical Therapist: Armani Zamarripa, PT, ATC Visit Plan Frequency: 2x /Week Duration: 4-6 Weeks Plan: SKTC/DKTC, core stab ex's, balance/proprio, nustep, and HEP Subjective Subjective: Pt reports he has had LBP for a couple of years now. Pt reports he has had injections in the LB and L knee which has really helped, but its only temporarily. Pt reports no recent Dx tests at this time. Pt denies any LE radiculopathy at this time. Pt reports he is currently retired at this time. 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 Pt notes no sleep difficulty at this time secondary to pain. Pt reports prolonged walking and standing increases his pain. Pt notes sitting helps to ease his pain. Pt reports he is not really limited with IADL's at this time, but notes he just has to perform them more slowly. Pt reports he has severe pain with putting on his shoes and socks. 1/10 pain in LB while sitting here at rest, 8/10 pain at worst (applying his socks and shoes Pain LBP: Pain Intensity (Out of 10): 1 Pain Intensity Range: 8 Objective Objective: Neuro: B LE sensation is WNL to light touch. MMT: B LE's are string and equal throughout when compared bilaterally ROM: Pt is severely limited with L/S extension. All other ranges are WFL Repeated movement: SKTC/DKTC 10 sec x 3 ea decreased pain TU sec Balance/Special Test Scores Oswestry Low Back Score: 21 Goals Goal 1:: Decrease LBP x 50% to aid with IADL's Goal Time Frame: 4-6 Weeks Goal 2:: Pt will perform TUG in under 10 sec to aid with community efficiency Goal Time Frame: 4-6 Weeks Goal 3:: I with HEP Goal Time Frame: 4-6 Weeks Rehabilitation Potential Physical Therapy Diagnosis: Pt has limited L/S ROM, LBP, and intolerance for prolonged standing secondary to degenerative changes in L/S Rehabilitation Potential: Good Anticipated Interventions Patient/Client Instruction: Educate patient on: Condition and Plan of Care For the Purpose of:: To improve self management Therapeutic Exercise to Include: Strength training, Endurance training, Balance training, Body mechanics, Postural training, Flexibilty training, Gait and locomotor training, Active ROM and Dynamic Lumbar Stabilization For the Purpose of:: To decrease pain, To improve muscle performance and motor function and To improve ability to perform ADL's Text: Thank you for the opportunity to evaluate your patient. For Medicare and Medicare HMO plans, please review the plan of care and approve it. It will need to be FAXED BACK to us at [phone] for Medicare purposes. For Medicare only, by signing this I certify the plan of care. Please let me know if there are questions or concerns regarding this plan of care. Physician Signature: Date:
--- NOTE | 2024-06-19 12:25 | HP.PTDCSUM ---
Discharge Summary D/C summary: It has been my pleasure to treat DAPHNE BARR referred by Dr. Bere Araiaz MD, with the diagnosis of LBP for a total of 10 visit(s). Discharge Date: Please see the following information for a summary of their discharge status. Subjective Subjective: My pain is gone, and I feel good. Every now and then, my back hurts for no reason. Pain LBP: Pain Intensity (Out of 10): 0 knees: Pain Intensity (Out of 10): 0 Overall Improvement % Improvement: 100 Objective Objective/Function: LBP is 0/10 Pt is I with HEP TUG 12 sec Pt has achieved all Rx goals except for TUG test time which he is improving on Goals Goal 1:: Decrease LBP x 50% to aid with IADL's Goal Progress: Goal Met Goal 2:: Pt will perform TUG in under 10 sec to aid with community efficiency Goal Progress: Progressing Goal 3:: I with HEP Goal Progress: Goal Met Plan Plan: Discharge to HEP D/C Information d/c sentence: If there are questions or concerns regarding this patient's physical therapy, please feel free to call me at [phone]. Thank you for the referral of this patient. Sincerely, Armani Zamarripa, PT, ATC Balance/Gait/Functional tests Balance/Special Test Scores Oswestry Low Back Score: 12 Improvement % Improvement: 100
== END 2024-06-19 19:00 | disposition home or self-care (01) ==
LOC: PT 12:00
PROVIDERS: Referring Provider Anesthesiology Pain Medicine; Visit Provider Anesthesiology Pain Medicine
DX: M54.9 Dorsalgia, unspecified (principal)
CPT/HCPCS: 97110; 97161; 97530

== ENCOUNTER → 2024-06-19 | Outpatient (CLI) | payer MEDICARE, OTHER, SELFPAY ==
[2024-06-19 15:33] LABS: Absolute Neutrophil Count 6.5 X10^3/uL (2.0-7.7); Basophil# 0.03 X10^3/uL; Basophil% 0.3 % (0-1); Eosinophil# 0.13 X10^3/uL; Eosinophils% 1.5 % (0-5); Hematocrit 49.6 % (40-54); Hemoglobin 16.5 g/dL (13.0-16.5); Mean Corp Hgb Conc 33.3 g/dL (32-36); Mean Corpuscular Hgb 29.8 pg (27.0-32.0); Mean Corpuscular Volume 89.5 fL (80-94); Mean Platelet Vol. 11.6 fl (6.2-12.0); Monocyte# 0.66 X10^3/uL; Monocyte% 7.6 % (0-10); NRBC Flagged by Analyzer 0 % (0-5); Neutrophil # 6.49 X10^3/uL (2.7-7.7); Neutrophil % 74.4 % (47-70); Platelet Count 159 K/mm3 (150-450); RBC Distribution Width CV 12.9 % (11.6-14.6); Red Blood Count 5.54 M/mm3 (4.6-6.2); White Blood Count 8.7 K/mm3 (4.4-11.0)
[2024-06-19 15:53] LABS: AST(SGOT) 16 U/L (<=37); Alanine Aminotransfer ALT/SGPT 8 U/L (<=46); Alkaline Phosphatase 76 U/L (40-129); Bilirubin, Direct 0.18 mg/dL (0.00-0.30); CRP 6.67 mg/L (0.0-3.0); Globulin 3.4 g/dL (2.2-4.2); Protein, Total 7.5 g/dL (5.9-8.4); Total Bilirubin 0.45 mg/dL (0.00-1.30)
== END | disposition home or self-care (01) ==
LOC: MTLAB 10:57
PROVIDERS: Referring Provider Internal Medicine Gastroenterology; Visit Provider Internal Medicine Gastroenterology
DX: K51.90 Ulcerative colitis, unspecified, without complications (principal)
CPT/HCPCS: 36415; 80076; 85025; 86140

== ENCOUNTER → 2024-08-01 | Outpatient (CLI) | payer MEDICARE, OTHER, SELFPAY ==
[2024-08-01 16:09] LABS: PSA,Total- Diagnostic 5.77 ng/mL (0.00-4.00)
== END | disposition home or self-care (01) ==
LOC: LAB 14:08
PROVIDERS: Referring Provider Urology; Visit Provider Urology
DX: C61 Malignant neoplasm of prostate (principal)
CPT/HCPCS: 36415; 84153

== ENCOUNTER → 2024-08-23 | Outpatient (CLI) | payer MEDICARE, OTHER, SELFPAY ==
[2024-08-23 13:47] LABS: Hematocrit 47.2 % (40-54); Hemoglobin 15.7 g/dL (13.0-16.5); Mean Corp Hgb Conc 33.3 g/dL (32-36); Mean Corpuscular Hgb 29.6 pg (27.0-32.0); Mean Corpuscular Volume 89.1 fL (80-94); Mean Platelet Vol. 11.5 fl (6.2-12.0); Platelet Count 179 K/mm3 (150-450); RBC Distribution Width CV 13.1 % (11.6-14.6); RBC Distribution Width SD 42.7 fl (35.1-43.9); White Blood Count 10.4 K/mm3 (4.4-11.0)
[2024-08-23 14:21] LABS: PTHIN 93 pg/mL (11-61)
[2024-08-23 14:22] LABS: Protein, Urine (Random) 7.3 mg/dL (0.0-12.0); Protein:Creat Ratio 278 mg/g CRE (0-200)
[2024-08-23 14:36] LABS: Albumin, Serum 4.1 g/dL (3.4-4.8); Anion Gap 11 (5-15); BUN 25 mg/dL (4-19); BUN/Creat Ratio 17.8 RATIO (10-20); Calcium,Total 9.8 mg/dL (7.6-11.0); Carbon Dioxide 28.9 mmol/L (21.0-32.0); Chloride 99 mmol/L (98-108); Creatinine, Serum 1.39 mg/dL (0.70-1.20); EST Glomerular Filtration Rate 53 (>60); Glucose 342 mg/dL (70-99); Phosphorus 2.8 mg/dL (2.7-4.5); Sodium Level 139 mmol/L (133-145); Vitamin D,25 Hydroxy 39.9 ng/mL (30-100)
== END | disposition home or self-care (01) ==
PROVIDERS: Referring Provider Internal Medicine Nephrology; Visit Provider Internal Medicine Nephrology
DX: N18.31 Chronic kidney disease, stage 3a (principal)
CPT/HCPCS: 36415; 80069; 82306; 82570; 83970; 84156; 85027

== ENCOUNTER → 2024-10-04 | Outpatient (CLI) | payer MEDICARE, OTHER, SELFPAY | END | disposition home or self-care (01) | LOC: MTLAB 12:50 | PROVIDERS: Referring Provider Internal Medicine Gastroenterology; Visit Provider Internal Medicine Gastroenterology | DX: Z00.00 Encounter for general adult medical examination without abnormal findings (principal) ==

== ENCOUNTER 2024-10-08 10:29 | Outpatient (RCR) | payer MEDICARE, OTHER, SELFPAY ==
[2024-10-08 12:32] LABS: Hematocrit 46.8 % (40-54); Hemoglobin 15.7 g/dL (13.0-16.5); Immature Granulocytes Count 0.040 X10^3/uL (0.0-0.0); Mean Corp Hgb Conc 33.5 g/dL (32-36); Mean Corpuscular Volume 89.3 fL (80-94); Mean Platelet Vol. 11.3 fl (6.2-12.0); NRBC Flagged by Analyzer 0 % (0-5); Platelet Count 179 K/mm3 (150-450); RBC Distribution Width CV 13.2 % (11.6-14.6); RBC Distribution Width SD 43.5 fl (35.1-43.9); Red Blood Count 5.24 M/mm3 (4.6-6.2); White Blood Count 9.4 K/mm3 (4.4-11.0)
[2024-10-08 12:36] LABS: AST(SGOT) 14 U/L (<=37); Alanine Aminotransfer ALT/SGPT 8 U/L (<=46); Albumin, Serum 4.0 g/dL (3.4-4.8); Alkaline Phosphatase 66 U/L (40-129); Bilirubin, Direct 0.23 mg/dL (0.00-0.30); Globulin 3.1 g/dL (2.2-4.2)
== END 2024-10-08 18:00 | disposition home or self-care (01) ==
LOC: MTLAB 10:29
PROVIDERS: Referring Provider Internal Medicine Gastroenterology; Visit Provider Internal Medicine Gastroenterology
DX: K51.90 Ulcerative colitis, unspecified, without complications (principal)
CPT/HCPCS: 36415; 80076; 85025